=== PATIENT | female | born 1950 | race Hispanic/Latino ===

== ENCOUNTER 2016-07-20 00:26 | Inpatient (IN) | payer MEDICARE, OTHER ==
[~2016-07-20] VITALS: Ht 157.5 cm; Wt 79.1 kg
[2016-07-20] VITALS (36 sets, daily range): BP systolic 32–120; BP diastolic 37–95; PULSE 90–112; RESP 18–34; O2SAT 91–97
[~2016-07-20 00:26] MED LIST: ALBU8.5H2 INHALATION; DORZ10DR20 LEFT_EYE; ESOM40CA41 PO; LEVO88TA3 PO; OMEP20CA11 PO
--- NOTE | 2016-07-20 00:49 | ED.REPORT ---
HPI-Dyspnea / Wheezing Date of Service Jul 20, 2016 ED Provider: Dr. Perez Pt is a 66 y/o female presenting to the ED via EMS with family due to nausea and vomiting onset today. She felt generally unwell yesterday without definitive symptoms and today has experienced nausea and vomiting x5 times today. She c/o associated right sided abdominal pain with radiation to the right flank, fever onset last night, myalgias, generalized weakness. She states that while she was picking up something yesterday she felt a tearing sensation in her back. She denies dysuria, hematuria, bloody or melena stool, constipation , diarrhea, CP, SOB. She has a history of kidney stones and her symptoms today are similar to those episodes. Abdominal surgeries: cholecystectomy, hysterectomy Nursing Notes Stated Complaint: FLU SYMPTOMS Chief Complaint: General Complaint Nursing Notes Reviewed: Yes Allergies: Coded Allergies: No Known Allergies (Verified , 06/05/15) Scheduled Dorzolamide HCl/Timolol Maleat (Dorzolamide-Timolol Eye Drops) 10 Ml Drops 2 GTT LEFT_EYE BID Esomeprazole Magnesium (Nexium) 40 Mg Capsule.dr 40 MG PO DAILY Levothyroxine (Synthroid) 88 Mcg Tablet 88 MCG PO DAILY Scheduled PRN Albuterol HFA (Proair HFA) 8.5 Gm Hfa.aer.ad 1 PUFF INHALATION Q4H PRN PRN For Shortness of Breath Omeprazole (Omeprazole) 20 Mg Capsule.dr 20 MG PO DAILY PRN PRN For Dyspepsia or Heartburn General Time Seen by MD: 00:45 Chief Complaint Other (Vomiting) Hx Obtained From: Patient Arrived By: Walk-in Sudden in Onset?: Yes Onset Occurred: 5 - 8 hours ago Symptom Duration: Since onset Quality: Painful (right abd) Severity: Current: Mild Severity: Maximum: Mild Recent Healthcare: Previous diagnosis Similar Sx Previous: Yes Past Medical History Past Medical History Hx kidney stones Gastritis GERD Hypothyroid Hypotension Past Surgical History Hysterectomy Cholecystectomy Family History Noncontributory Smoking History Never Smoker Social History Alcohol Use: Denies alcohol use Other Social History: Local resident Ambulatory Status Independent Review of Systems Constitutional: Reports: Chills, Fever, Weakness - generalized Respiratory: Denies: Shortness of breath Cardiovascular: Denies: Chest pain Musculoskeletal: Reports: Back pain Complete sys rev & neg: except as marked. GI: Reports: Abdominal pain, Nausea, Vomiting, Denies: Bloody/tarry stool, Constipation, Diarrhea, Melena Physical Exam Initial Vital Signs Vital Signs (First) Date Time Temp Pulse Resp B/P Pulse Ox O2 Delivery O2 Flow Rate FiO2 07/20/16 00:36 39.4 108 20 82/55 93 Room Air Initial VS: Reviewed, Vital signs abnormal Head / Eyes: Atraumatic, Normocephalic, PERRL Extremities: Vascular intact, Neuro intact, No swelling, No tenderness Skin: Warm, Dry, No cyanosis Neurologic: Alert, Oriented, Nonfocal Psychiatric: Mood/affect normal, Behavior normal, Normal thought content General/Constitutional: Awake, Alert, No acute distress, Cooperative, Not toxic appearing Distress / Hydration: Positive: Dehydration mild Neck: Atraumatic, Supple, Full range of motion Respiratory / Chest: Atraumatic, No respiratory distress, No retractions, No chest wall deformity Coarse breath sounds throughout Cardiovascular: Regular rhythm, Heart sounds NL, No gallop, No murmurs, No rubs , Cap refill not delayed, Peripheral circulation NL Heart Rate / Rhythm: Positive: Tachycardia ENT: Atraumatic, Airway patent Mouth: Positive: Mucous membranes dry Abdomen: Atraumatic, Soft, No rebound, No distention, No palpable mass Positive Rovisng's sign No RLQ tenderness to palpation Mild guarding Interpretation & Diagnostics Interpretation & Diagnostics: CT KUB w/out contrast: Conclusion: Right hydronephrosis and proximal hydroureter secondary to a proximal nonobstructing 3 mm stone and a second distal right ureteral stone measuring 2 mm at the UVJ. Transmitted to the ED by Liborio Kapoor MD at 0149 Lab Results Interpretation Result Diagram: 07/20/16 0125 07/20/16 0125 Test 07/20/16 00:59 07/20/16 01:25 Urine Color Bloody (YELLOW) Urine Appearance Cloudy (CLEAR,HAZY) Urine pH 6.0 (5.0-8.0) Urine Specific [place] 1.015 (1.003-1.035) Urine Protein 100mg/dL (NEG,TRACE) Urine Glucose (UA) Negativemg/dL (NEGATIVE) Urine Ketones Negativemg/dL (NEGATIVE) Urine Occult Blood Large (NEGATIVE) Urine Nitrite Negative (NEGATIVE) Urine Bilirubin Negative (NEGATIVE) Urine Urobilinogen Normalmg/dL (NORMAL) Urine Leukocyte Esterase Moderate (NEGATIVE) Urine RBC >50/hpf (0-2) Urine WBC 6-10/hpf (0-5) Urine Epithelial Cells Many/hpf (NONE-MOD) Urine Crystals None seen (NONE SEEN) Urine Bacteria Many/hpf (NONE-FEW) Urine Hyaline Casts None/lpf (NONE) Urine Granular Casts None seen (NONE SEEN) Urine Waxy Casts None seen (NONE SEEN) Urine Red Blood Cell Casts None seen (NONE SEEN) Urine White Blood Cell Casts None seen (NONE SEEN) Urine Mucus None seen (None Seen) Urine Trichomonas None seen (NONE SEEN) Urine Yeast None (NONE SEEN) Urinalysis Comment None Urine Culture Reflexed Indicated White Blood Count 6.5th/mm3 (3.8-10.1) Red Blood Count 4.63mil/mm3 (3.90-5.20) Hemoglobin 14.0g/dL (12.0-15.6) Hematocrit 41.4% (35.0-46.0) Mean Corpuscular Volume 89.4fL (81-100) Mean Corpuscular Hemoglobin 30.2pg (27.0-35.0) Mean Corpuscular Hemoglobin Concent 33.8% (32.0-37.0) Red Cell Distribution Width 14.0% (12.3-15.4) Platelet Count 134bil/L (150-400) Neutrophils (%) (Auto) 91.1% (40-74) Lymphocytes (%) (Auto) 5.3% (14-46) Monocytes (%) (Auto) 1.2% (4-12) Eosinophils (%) (Auto) 0.5% (0-5) Basophils (%) (Auto) 0.2% (0-3) Sodium Level 144mEq/L (134-144) Potassium Level 3.3mEq/L (3.5-5.2) Chloride Level 106mEq/L (97-108) Carbon Dioxide Level 17mmol/L (18-29) Blood Urea Nitrogen 24mg/dL (8-27) Creatinine 1.16mg/dL (0.57-1.00) Estimat Glomerular Filtration Rate 67mL/min (>59) Glucose Level 111mg/dL (60-99) Lactic Acid Level 7.5mmol/L (0.4-2.0) Calcium Level 9.5mg/dL (8.5-10.1) Magnesium Level 1.7mg/dL (1.6-2.6) Total Bilirubin 1.1mg/dL (0.0-1.2) Aspartate Amino Transf (AST/SGOT) 147U/L (0-50) Alanine Aminotransferase (ALT/SGPT) 101U/L (0-32) Alkaline Phosphatase 145U/L (25-165) Troponin T 0.010ug/L (0.0-0.011) Total Protein 6.4g/dL (6.4-8.4) Albumin 3.6g/dL (3.4-5.0) Lipase 27U/L (13-60) X-Ray Chest Interpretation Chest Xray Interpretation: Mild pulmonary congestion View: Portable, AP & lat Interpretation / Wet Read by: Wet read ED physician Procedures Central Line Placement Central Line Placement Note: Secured at 15 cm Time: 03:15 Procedure Performed by: ED physician Consent / Setup / Site Prep: Informed consent provided, Consent from patient , Time-out performed, Needle aspirate performed, Oxygen administered, Pulse oximeter applied, threat monitoring analyst applied, Hand hygiene observed, Standard surgical scrub, Max barrier precaution, Sterile drapes applied, Position Trendelenburg Skin Preparation Agent: Hibiclens - Chlorhexidine Local Anesthesia: Lidocaine 1% Side / Location / Ultrasound: Internal jugular right, Ultrasound assisted Catheter / Lumen / Technique: Catheter size (7.5 greenlandic), Triple lumen, Good blood return, Secured with suture Central Line Tip Location: Other (on x-ray, central line is high and somewhat tortuous, however, it draws back appropriately and appears to be in the IJ. At this time, I do not feel it is appropriate to pull the central line and replace it.) Post-Procedure / Complications: Condition improved, Tolerated procedure well , Patient stable Re-Eval/Medical Decision Med Decision/Clinical Course 66-year-old female with past medical history of kidney stones here with flank pain and fever. Differential diagnosis includes but is not limited to infected kidney stone versus pyelonephritis versus influenza versus pneumonia. Patient' s blood pressure dropped while in the emergency department, at which point, I placed a central line. Heart she has a lactic acidosis of 7.5. And very concerned that this is due to an infected kidney stone. She does not have a leukocytosis, however, she does have acute kidney injury with doubling of her creatinine. She does have a urinary tract infection and 2 nonobstructing stones with mild hydronephrosis. I discussed the case with the urologist Dr. Martinez who will see the patient at 7:00 in the morning and has requested she remain nothing by mouth from this point on. Patient has been accepted by hospitalist . Re-Evaluation/Progress #1: Time of Eval: 02:07 Re-Evaluation/Progress Note: Informed pt of kidney stone viewed on CT. Still awaiting CMP and UA results. Re-Evaluation/Progress #2: Time of Eval: 02:32 Re-Evaluation/Progress Note: Pt rechecked. Informed famly of severely infected kidney stone and need for transfer due to no beds available at [facility]. Re-Evaluation/Progress #3: Time of Eval: 03:06 Patient Status: Condition worsened Re-Evaluation/Progress Note: Heart rate increasing, blood pressure decreasing. Still no beds available at any Will place central line. Consultation #1: Referral / Consult Name: Martine Martinez MD Consulted With: Urology Call Returned at: 03:40 Mortgage Sales Manager: Will see patient, Agrees with eval, Agrees with plan Consultation #2: Referral / Consult Name: Noni Urbina MD Consulted With: Hospitalist Call Returned at: 04:00 Mortgage Sales Manager: Will see patient, Agrees with eval, Agrees with plan, Accepts admit Counseled Regarding: Diagnosis, Lab results, Need for transfer Discharge & Departure Impression: Primary Impression: Sepsis Sepsis type: sepsis due to unspecified organism Qualified Code: A41.9 - Sepsis, unspecified organism Additional Impressions: Right ureteral stone Hydronephrosis of right kidney Disposition: Transfer, Acute Care Facility Discharge Condition All VS Reviewed: Yes Condition: Stable Patient Instructions: Renal Colic (ED) Referrals: Julio Hutchinson MD (PCP) Crit Care Except Billable Proc Time Spent: 105-134 minutes Services Performed: Patient management by me, Time spent at bedside, Reviewing test results, Reviewing imaging, Discussing patient care, Documentation in record, Time with fam/surrogate Scribe Attestation Portions of this note were transcribed by Dago Fink. I, Dr. Perez personally performed the history, physical exam and medical decision-making; I reviewed and confirmed the accuracy of the information in the transcribed note. Signed by Annette Chacon, 07/19/16 - 0050 copies to: Julio Hutchinson MD, Rebecca A MD Jul 20, 2016 00:49 DAGO FINK Jul 20, 2016 01:05
[2016-07-20] MEDS ORDERED: 0.9% Sodium Chloride 1,000 ML IV ONE ×3 (00:59→13:50)
[2016-07-20] MEDS ORDERED: fentaNYL-PF 50 mCg/mL 2 mL Inj IVPUSH ONE (01:05)
[2016-07-20] MEDS ORDERED: Ondansetron 2 mg/mL 2 mL Inj IVPUSH ONE ×2 (01:05→02:25)
[2016-07-20 01:42] LABS: BASOPHILS % (AUTO) 0.2 % (0-3); EOSINOPHILS % (AUTO) 0.5 % (0-5); MONOCYTES % (AUTO) 1.2 % (4-12); Mean Corpuscular Hemoglobin 30.2 pg (27.0-35.0); Mean Corpuscular Volume 89.4 fL (81-100); NEUTROPHILS % (AUTO) 91.1 % (40-74); Platelet Count 134 bil/L (150-400)
[2016-07-20 02:23] LABS: Magnesium 1.7 mg/dL (1.6-2.6); TROPONIN T 0.01 ug/L (0.0-0.011)
[2016-07-20] MEDS ORDERED: cefTRIAXone Inj 1,000 MG in IV Premix 1 EACH IV ONE ×2 (02:25→04:00)
[2016-07-20 02:40] LABS: APPEARANCE,URINE CLOUDY (CLEAR,HAZY); COLOR,URINE BLOODY (YELLOW); OCCULT BLOOD,URINE LARGE (NEGATIVE); UROBILINOGEN,URINE NORMAL (NORMAL)
[2016-07-20] MEDS: Norepinephrine 8,000 mCg/250 mL D5W Premix IV SCH ×2 (03:47→11:05)
[2016-07-20] MEDS ORDERED: 0.9% Sodium Chloride 1,000 ML IV SCH (04:31)
[2016-07-20] MEDS ORDERED: Polyethylene Glycol (PEG) 17 Gm Powder PO PRN ×3 (04:35→09:00)
[2016-07-20] MEDS ORDERED: Alum-Mag Hydrox-Simeth 30 mL Suspension PO PRN ×2 (04:35→08:50)
--- NOTE | 2016-07-20 04:54 | PCM.HPMED ---
Subjective Date of Service Jul 20, 2016 Primary Provider: Admitting Physician: Primary Care Physician: Julio Hutchinson MD Attending Physician: Admit Status: From the Emergency Department, Full Admit Chief Complaint: Right-sided abdominal pain with nausea vomiting History of Present Illness: This is a 66-year-old female who comes in accompanied by family with few week history of right sided abdominal pain. She has had nausea vomiting which started today. She is also had some fevers and chills today. Her bowel movements have been normal. She does have a history of kidney stones one year ago and was treated by the urologist Dr. Colby. Her evaluation today in the emergency room reveals CT of abdomen and pelvis without contrast shows right hydronephrosis and proximal hydroureter secondary to a proximal nonobstructing 3 mm stone and a second distal right ureteral stone measuring 2 mm at the UVJ her temperature here is noted to be 39.4. Her white count is 6.5 with 91% polys and 5% lymphs. Her UA shows large occult blood negative nitrite and moderate leukocyte esterase RBCs greater than 50 wbc's 6-10 many epithelial cells with many bacteria. Her BUN is 24 with creatinine of 1.16 approximately a year ago she had a creatinine of 0.5. Calculated GFR is 67. Lactic acid is 7.5. Troponin is 0.010. Bicarbonate is 17. She denies any chest pain or shortness of breath. She denies any urinary frequency or burning. Review of Systems: All other review of systems are reviewed and are negative except for as in history of present illness. Allergies Coded Allergies: No Known Allergies (Verified , 06/05/15) Home Medications Nexium 40 mg by mouth daily Levothyroxine 88 g by mouth daily dorzolamide/timolol eyedrops 2 drops left eye twice a day Albuterol HFA 1 puff inhaled every 4 hours when necessary shortness of breath Omeprazole 20 mg by mouth daily when necessary heartburn PMH GERD Obesity Hypothyroidism History of gastritis History of kidney stones Surgical History Status post hysterectomy Status post cholecystectomy Family History No history of cardiovascular disease or kidney disease Social History Hx Alcohol Use: No Hx Substance Use: No Hx Tobacco Use: No Smoking Status: Never Smoker Living Arrangement: with Family Exam Vital Signs Vital Sign - Last Date Time Temp Pulse Resp B/P Pulse Ox O2 Delivery O2 Flow Rate FiO2 07/20/16 04:37 103 102/61 07/20/16 03:45 33 95 Nasal Cannula 07/20/16 00:49 39.7 Intake and Output 07/19/16 07/19/16 07/20/16 Cumulative From/Thru 15:00 23:00 07:00 07/20/16 00:36 - 07/20/16 01:24 Intake Total 1000 ml 1000 ml Balance 1000 ml 1000 ml Intake IV Total 1000 ml 1000 ml Lab and Diagnostics Labs Laboratory Tests 72 Hours Test 07/20/16 00:59 07/20/16 01:25 Urine Color Bloody (YELLOW) Urine Appearance Cloudy (CLEAR,HAZY) Urine pH 6.0 (5.0-8.0) Urine Specific [place] 1.015 (1.003-1.035) Urine Protein 100mg/dL (NEG,TRACE) Urine Glucose (UA) Negativemg/dL (NEGATIVE) Urine Ketones Negativemg/dL (NEGATIVE) Urine Occult Blood Large (NEGATIVE) Urine Nitrite Negative (NEGATIVE) Urine Bilirubin Negative (NEGATIVE) Urine Urobilinogen Normalmg/dL (NORMAL) Urine Leukocyte Esterase Moderate (NEGATIVE) Urine RBC >50/hpf (0-2) Urine WBC 6-10/hpf (0-5) Urine Epithelial Cells Many/hpf (NONE-MOD) Urine Crystals None seen (NONE SEEN) Urine Bacteria Many/hpf (NONE-FEW) Urine Hyaline Casts None/lpf (NONE) Urine Granular Casts None seen (NONE SEEN) Urine Waxy Casts None seen (NONE SEEN) Urine Red Blood Cell Casts None seen (NONE SEEN) Urine White Blood Cell Casts None seen (NONE SEEN) Urine Mucus None seen (None Seen) Urine Trichomonas None seen (NONE SEEN) Urine Yeast None (NONE SEEN) Urinalysis Comment None Urine Culture Reflexed Indicated White Blood Count 6.5th/mm3 (3.8-10.1) Red Blood Count 4.63mil/mm3 (3.90-5.20) Hemoglobin 14.0g/dL (12.0-15.6) Hematocrit 41.4% (35.0-46.0) Mean Corpuscular Volume 89.4fL (81-100) Mean Corpuscular Hemoglobin 30.2pg (27.0-35.0) Mean Corpuscular Hemoglobin Concent 33.8% (32.0-37.0) Red Cell Distribution Width 14.0% (12.3-15.4) Platelet Count 134bil/L (150-400) Neutrophils (%) (Auto) 91.1% (40-74) Lymphocytes (%) (Auto) 5.3% (14-46) Monocytes (%) (Auto) 1.2% (4-12) Eosinophils (%) (Auto) 0.5% (0-5) Basophils (%) (Auto) 0.2% (0-3) Sodium Level 144mEq/L (134-144) Potassium Level 3.3mEq/L (3.5-5.2) Chloride Level 106mEq/L (97-108) Carbon Dioxide Level 17mmol/L (18-29) Blood Urea Nitrogen 24mg/dL (8-27) Creatinine 1.16mg/dL (0.57-1.00) Estimat Glomerular Filtration Rate 67mL/min (>59) Glucose Level 111mg/dL (60-99) Lactic Acid Level 7.5mmol/L (0.4-2.0) Calcium Level 9.5mg/dL (8.5-10.1) Magnesium Level 1.7mg/dL (1.6-2.6) Total Bilirubin 1.1mg/dL (0.0-1.2) Aspartate Amino Transf (AST/SGOT) 147U/L (0-50) Alanine Aminotransferase (ALT/SGPT) 101U/L (0-32) Alkaline Phosphatase 145U/L (25-165) Troponin T 0.010ug/L (0.0-0.011) Total Protein 6.4g/dL (6.4-8.4) Albumin 3.6g/dL (3.4-5.0) Lipase 27U/L (13-60) Result Diagram: 07/20/1612407/20/16124 X-Rays, CTs and MRIs Chest Xray Interpretation: Mild pulmonary congestion View: Portable, AP & lat Interpretation / Wet Read by: Wet read ED physician 12-lead ECG Pending at the time of this dictation Assessment & Plan # Sepsis thought to be due to infected ureteral stone, present on admission, acute We will cover with 2 g IV Rocephin every 24 hours. Blood cultures 2 We will initiate sepsis protocol with recurrent lactic acid levels every 2 hours until improving. Her level was high at 7.5. Check venous blood gas. Await urine culture report # Septic shock, present on admission, acute Central line was placed in the emergency room and will initiate IV norepinephrine to maintain map of 65 or greater. # Right ureteral stone nonobstructing, present on admission Urology has been notified per ER M.D. We will see patient in a.m. # DVT prophylaxis Since patient may go to the OR soon will not use subcutaneous anticoagulation SCDs # CODE STATUS Patient is full code. Pain Evaluation: Adequate Pain Control GI Prophylaxis: Proton Pump Inhibitor VTE Prophylaxis Indicated: CCU Admission, Contraindicated (May be taken to the OR soon) VTE Mechanical Devices: Intermittant Pneumatic CD Resuscitation Status: CPR: Attempt Resuscitation Time spent 60 minutes Noni Urbina MD Jul 20, 2016 04:54
[2016-07-20 05:01] LABS: INR 1.2 ratio
[2016-07-20 05:49] LABS: Mean Corpuscular Hemoglobin 29.8 pg (27.0-35.0); Mean Corpuscular Volume 90.8 fL (81-100); Platelet Count 129 bil/L (150-400)
[2016-07-20 06:11] LABS: TROPONIN T 0.01 ug/L (0.0-0.011)
[2016-07-20 06:14] LABS: BASOPHILS % (AUTO) 0 % (0-3); EOSINOPHILS % (AUTO) 0 % (0-5); MONOCYTES % (AUTO) 1 % (4-12); NEUTROPHILS % (AUTO) 90 % (40-74)
[2016-07-20 06:22] LABS: Magnesium 1.6 mg/dL (1.6-2.6)
[2016-07-20] MEDS: Norepineph 8,000 mCg/250 mL NS 8,000 MCG in IV Premix 1 EACH IV SCH ×2 (06:24→19:43)
[2016-07-20] MEDS: 0.9% Sodium Chloride 1,000 ML IV SCH ×4 (06:26→23:25)
[2016-07-20 06:42] LABS: Phosphorus 0.8 mg/dL (2.5-4.9)
--- NOTE | 2016-07-20 07:07 | NUR ---
CCU admit Received patient from ED @ 0620 with Rt hydronephrosis, sepsis, arrived with acls transport, levophed gtt @ 0.25 mcg/kg/min, started NS @ 125 cc/hr, NC @ 3LPM, sp02 >92%, pt dyspneic on exertion, HR 102-104, map>65, barber draining with adequate uo, unable to do complete admission. Daughter at bedside, updated with plan of care. Notified Dr. Urbina of K+3.3, Phos 0.8, to replace with Kphos per pharmacy.
--- NOTE | 2016-07-20 08:15 | PCM.HPANE ---
Patient Data Date of Service: Jul 20, 2016 Surgeon Admitting Provider:Noni Urbina MD Attending Provider:Noni Urbina MD Primary Care Physician:Julio Hutchinson MD Other Provider: Reason for Visit Hydronephrosis R Ureteral Stone Sepsis Ht/WT & BMI Height (Feet): 5 Height (Inches): 2.00 Weight (Kilograms): 83.400 Body Mass Index 33.84 Allergies Coded Allergies: No Known Allergies (Verified , 06/05/15) Past Anesthesia History Anesthesia History: Positive for:: Anesthesia Reactions (PT WAS HOSPITALIZED X 1 WK, LUNG COLLAPSE), Denies:: Abnormal Airway, Difficult Intubation, Fam Anesthesia Reaction, Fam Malignant Hypertherm, Malignant Hyperthermia Diabetes History Hx Diabetes?: No MRSA MRSA: No Medications Home Meds Incl Beta Liseth: No Reported Medications Albuterol HFA (Proair HFA)8.5 Gm Hfa.aer.ad1 Puff INHALATION Q4H PRN For Shortness of Breath #1 INHALER 06/05/15 Omeprazole 20 Mg Capsule.dr20 Mg PO DAILY PRN For Dyspepsia or Heartburn Ref 0 06/05/15 Dorzolamide HCl/Timolol Maleat (Dorzolamide-Timolol Eye Drops)10 Ml Drops2 Gtt LEFT_EYE BID #1 BOTTLE 12/22/14 Esomeprazole Magnesium (Nexium)40 Mg Capsule.dr40 Mg PO DAILY 30 Days Ref 0 12/22/14 Levothyroxine (Synthroid)88 Mcg [id number] Mcg PO DAILY 30 Days Ref 0 12/22/14 History History of ENT Problems?: Yes HEENT History: Positive for:: Dysphagia (OCCASIONAL ) Denies:: Abnormal Airway Cataracts Difficult Intubation Glaucoma Sinus Problem Hx of Heart Problems?: Yes Cardiovascular History: Positive for:: Edema (occasional) Irregular Heartbeat (C/OF PALPITATIONS) Denies:: AICD Atrial Fibrillation Cardiac Surgery Chest Pain Congestive Heart Failure Heart Murmur Hypertension Pacemaker Thrombophlebitis Valvular Heart Disease Hx of Respiratory Problem?: Yes Respiratory History: Positive for:: Asthma (VERY RARE FLARE UPS ) Dyspnea (this admission 07/19/16) Use of C-PAP Machine (WOOD+ REFUSES CPAP SLEEP STUDY 11/2008) Denies:: COPD Chest Surgery Cough Emphysema Hemoptysis Pneumonia Tuberculosis Hx Neurologic Problems?: Yes Neurological History: Denies:: Alzheimer's Disease CVA Dementia Dizziness Headaches Parkinson's Disease Seizures Hx of GI Problems?: Yes Gastrointestinal History: Positive for:: Diverticulitis Gastroesphageal Reflux Heartburn Hiatal Hernia Denies:: Cirrhosis Gastrointestinal Bleeding Hepatitis Rectal Bleeding Hx of Problems?: Yes Genitourinary History: Positive for:: Kidney Stones (RT URETERAL STONE= CURRENT PROBLEM S/P CYSTO/RT STENT PLACEMENT) Urinary Tract Infection Denies:: HX of Hemodialysis HX of Peritoneal Dialysis: No Female Hx: Denies:: Currently Endometriosis Pelvic Inflammatory Problems with Breasts? Skin History: Denies:: History Skin Disorders? Pressure Ulcers Hx Musculoskeletal Problems?: Yes Musculoskeletal History: Positive for:: Musculoskeletal Trauma (S/P SHOULDER RPR'S,WRIST RPR) Denies:: Back Injury Joint Replacement Hx of Psycho/Social Problems?: Yes Psycho Social History: Positive for:: Anxiety Hx Depression Denies:: Bipolar Disorder Suicide Attempt Hx Surgeries?: Yes (ROTATOR CUFF REPAIR ) Hx Any Other Health Problems?: Yes Other History: Positive for:: Hospitalization (RT KIDNEY STONE 04/07/13) Thyroid Disease Denies:: Cancer Endocrine Disease History Blood Transfusions: Denies:: Blood Transfuse Reaction Blood Transfusions Hx Diabetes: No Hx Alcohol Use: NoHx Substance Use: No Smoking Status: Never Smoker Have You Smoked inLast 12 mo: No Stop/Bang Treated for Sleep Apnea?: Yes Do You Have a CPAP Machine?: Yes WOOD Risk Assessment: High Risk, =/>3 Yes WOOD Category 2: Yes Risk Assessment Category Category 1A: Patient has history of documented sleep apnea, and HAS NOT received any narcotic, sedative or anesthesia administration during this stay. Category 1B: Patient has history of documented sleep apnea, and HAS received any narcotic , sedative or anesthesia administration during this stay Category 2: Patient has SUSPECTED Obstructive Sleep Apnea, and HAS received any narcotic , sedative or anesthesia administration during this stay. Category 3: Patient has SUSPECTED Obstructive Sleep Apnea and HAS NOT received narcotic, sedative or anesthesia administration during this stay. Category 4: Outpatient in Procedural Areas with known sleep apnea or who screen positive for High Risk via the STOP/BANG questionnaire. Exam Exam Vital Signs Vital Signs Date Time Temp Pulse Resp B/P Pulse Ox O2 Delivery O2 Flow Rate FiO2 07/20/16 07:28 Supplement Oxygen 07/20/16 07:27 37.4 102 30 106/62 94 Nasal Cannula 3.00 07/20/16 06:30 37.2 102 30 95/59 93 Nasal Cannula 3.00 07/20/16 06:01 37.7 102 34 84/51 94 Nasal Cannula 4 07/20/16 05:48 102 34 84/51 94 Nasal Cannula 4 07/20/16 05:30 37.7 105 30 105/95 95 Nasal Cannula 4 07/20/16 05:00 104 31 97/58 94 Nasal Cannula 4 07/20/16 04:37 103 102/61 07/20/16 04:29 107 32/64 07/20/16 04:20 101 91/54 07/20/16 04:10 105 88/57 07/20/16 04:00 107 89/59 07/20/16 03:55 109 89/57 07/20/16 03:50 112 84/55 07/20/16 03:45 111 33 83/58 95 Nasal Cannula 07/20/16 03:30 110 86/54 07/20/16 03:04 110 22 80/37 97 Room Air 07/20/16 02:00 110 22 92/52 97 Room Air 07/20/16 00:49 39.7 109 19 90/59 92 Room Air 07/20/16 00:36 39.4 108 20 82/55 93 Room Air General Appearance: Alert, Oriented X3, Cooperative, No Acute Distress HEENT/AIRWAY: MP 2 Lungs: Normal Air Movement Heart: Exam Unremarkable Meds/Labs/Diagnostics Admission Meds Current Medications Sodium Chloride (Normal Saline) 1,000 ml @ 0 mls/hr Q0M ONCE IV Last administered on 07/20/16at 01:22; Start 07/20/16 at 00:59; Stop 07/20/16 at 01 :02; Status DC Fentanyl Citrate (Sublimaze Inj) 50 mcg ONCE ONCE IVPUSH Last administered on 07/20/16at 01:22; Start 07/20/16 at 01:05; Stop 07/20/16 at 01:06; Status DC Ondansetron HCl (Zofran Inj) 8 mg ONCE ONCE IVPUSH Last administered on at 01:22; Start 07/20/16 at 01:05; Stop 07/20/16 at 01:06; Status DC Acetaminophen 975 mg 975 mg ONCE ONCE PO Last administered on 07/20/16at 02:23 ; Start 07/20/16 at 02:10; Stop 07/20/16 at 02:11; Status DC Sodium Chloride 1,000 ml @ 0 mls/hr Q0M ONCE IV Last administered on at 02:23; Start 07/20/16 at 02:20; Stop 07/20/16 at 02:21; Status DC Ceftriaxone Sodium/Dextrose/ Premix (Rocephin Inj/IV Premix) 50 ml @ 100 mls/ hr ONCE ONCE IV Last administered on 07/20/16at 02:32; Start 07/20/16 at 02: 25; Stop 07/20/16 at 02:54; Status DC Ondansetron HCl 8 mg 8 mg ONCE ONCE IVPUSH Last administered on 07/20/16at 02: 32; Start 07/20/16 at 02:25; Stop 07/20/16 at 02:26; Status DC Sodium Chloride/ Electrolytes 1,000 ml @ 0 mls/hr Q0M IV Last administered on 07/20/16at 04:20; Start 07/20/16 at 04:00 Norepinephrine 8000 mcg/Premix 250 ml @ 7.24 mls/hr Q24H IV Last administered on 07/20/16at 03:47; Start 07/20/16 at 03:25 Ceftriaxone Sodium/Dextrose 1000 mg/Premix 50 ml @ 100 mls/hr ONCE ONCE IV Last administered on 07/20/16at 04:20; Start 07/20/16 at 04:00; Stop 07/20/16 at 04:29; Status DC Sodium Chloride (Normal Saline) 1,000 ml @ 125 mls/hr Q8H IV Last administered on 07/20/16at 06:26; Start 07/20/16 at 04:31 Labs Test 07/20/16 00:59 07/20/16 01:25 07/20/16 05:32 07/20/16 07:20 Urine Color Bloody (YELLOW) Urine Appearance Cloudy (CLEAR,HAZY) Urine pH 6.0 (5.0-8.0) Urine Specific [place] 1.015 (1.003-1.035) Urine Protein 100mg/dL (NEG,TRACE) Urine Glucose (UA) Negativemg/dL (NEGATIVE) Urine Ketones Negativemg/dL (NEGATIVE) Urine Occult Blood Large (NEGATIVE) Urine Nitrite Negative (NEGATIVE) Urine Bilirubin Negative (NEGATIVE) Urine Urobilinogen Normalmg/dL (NORMAL) Urine Leukocyte Esterase Moderate (NEGATIVE) Urine RBC >50/hpf (0-2) Urine WBC 6-10/hpf (0-5) Urine Epithelial Cells Many/hpf (NONE-MOD) Urine Crystals None seen (NONE SEEN) Urine Bacteria Many/hpf (NONE-FEW) Urine Hyaline Casts None/lpf (NONE) Urine Granular Casts None seen (NONE SEEN) Urine Waxy Casts None seen (NONE SEEN) Urine Red Blood Cell Casts None seen (NONE SEEN) Urine White Blood Cell Casts None seen (NONE SEEN) Urine Mucus None seen (None Seen) Urine Trichomonas None seen (NONE SEEN) Urine Yeast None (NONE SEEN) Urinalysis Comment None Urine Culture Reflexed Indicated Prothrombin Time 12.9sec (8.1-12.5) Prothromb Time International Ratio 1.20ratio Lipase 27U/L (13-60) White Blood Count 16.5th/mm3 (3.8-10.1) Red Blood Count 3.93mil/mm3 (3.90-5.20) Hemoglobin 11.7g/dL (12.0-15.6) Hematocrit 35.7% (35.0-46.0) Mean Corpuscular Volume 90.8fL (81-100) Mean Corpuscular Hemoglobin 29.8pg (27.0-35.0) Mean Corpuscular Hemoglobin Concent 32.8% (32.0-37.0) Red Cell Distribution Width 14.2% (12.3-15.4) Platelet Count 129bil/L (150-400) Neutrophils (%) (Auto) 90% (40-74) Lymphocytes (%) (Auto) 3% (14-46) Monocytes (%) (Auto) 1% (4-12) Eosinophils (%) (Auto) 0% (0-5) Basophils (%) (Auto) 0% (0-3) Band Neutrophils % 6% (1-5) Sodium Level 144mEq/L (134-144) Potassium Level 3.3mEq/L (3.5-5.2) Chloride Level 113mEq/L (97-108) Carbon Dioxide Level 17mmol/L (18-29) Blood Urea Nitrogen 21mg/dL (8-27) Creatinine 0.92mg/dL (0.57-1.00) Estimat Glomerular Filtration Rate 87mL/min (>59) Glucose Level 122mg/dL (60-99) Calcium Level 7.5mg/dL (8.5-10.1) Phosphorus Level 0.8mg/dL (2.5-4.9) Magnesium Level 1.6mg/dL (1.6-2.6) Total Bilirubin 1.6mg/dL (0.0-1.2) Aspartate Amino Transf (AST/SGOT) 170U/L (0-50) Alanine Aminotransferase (ALT/SGPT) 104U/L (0-32) Alkaline Phosphatase 96U/L (25-165) Troponin T 0.010ug/L (0.0-0.011) Total Protein 4.9g/dL (6.4-8.4) Albumin 2.7g/dL (3.4-5.0) Activated Partial Thromboplast Time 35.9sec (22.8-33.0) Plan Impression Patient chart reviewed, patient interviewed and anesthestic plan with risks, benefits, and alternatives discussed, and informed consent obtained. NPO Status: 04/11 at 1630 ASA Physical Status: ASA3 Severe Disease (sepsis) Anesthetic Plan: GA Bene/Risks/Altern/Consents: Yes HP Complete Prior to Induction: Yes Vamsi Arnold MD Jul 20, 2016 08:02
--- NOTE | 2016-07-20 08:18 | NUR ---
Off unit: Pt off unit to OR for cystoscopy and urethral stent. Family aware.
[2016-07-20] MEDS ORDERED: Lactated Ringer's 1,000 ML IV ONE ×2 (08:20→08:46)
[2016-07-20] MEDS: Sodium Chloride LOK Flush 10 mL Syringe IVFLUSH SCH ×3 (08:30→19:43)
[2016-07-20] MEDS ORDERED: Famotidine Inj 20 MG in IV Premix 1 EACH IV SCH (08:30)
[2016-07-20] MEDS: Timolol-Dorzolamide 10 mL Ophthalmic Solution LEFT_EYE SCH ×2 (08:30→19:43)
[2016-07-20] MEDS: Pantoprazole 4 mg/mL 10 mL Inj IVPUSH SCH ×2 (08:30→16:55)
[2016-07-20] MEDS ORDERED: Belladonna Alk-Opium 60 mg Rectal Suppository RECTAL ONE ×2 (08:37→08:44)
[2016-07-20] MEDS ORDERED: Lactated Ringer's 1,000 ML IV SCH (08:46)
[2016-07-20] MEDS ORDERED: Lactated Ringer's 500 ML IV PRN (08:46)
[2016-07-20] MEDS ORDERED: EPHEDrine Sulfate 50 mg/mL Inj IVPUSH PRN (08:50)
[2016-07-20] MEDS ORDERED: Atropine 0.4 mg/mL Inj IVPUSH PRN (08:50)
[2016-07-20] MEDS ORDERED: hydrALAZINE 20 mg/mL Inj IVPUSH PRN (08:50)
[2016-07-20] MEDS ORDERED: Albuterol-Ipratropium 3 mL Inhalation Solution NEB PRN (08:50)
[2016-07-20] MEDS ORDERED: Labetalol 5 mg/mL 4 mL Inj IV PRN (08:50)
[2016-07-20] MEDS ORDERED: Dexamethasone 4 mg/mL Inj IVPUSH PRN (08:50)
[2016-07-20] MEDS ORDERED: MetoCLOpramide 5 mg/mL 2 mL Inj IVPUSH PRN (08:50)
[2016-07-20] MEDS ORDERED: fentaNYL-PF 50 mCg/mL 2 mL Inj IVPUSH PRN (08:50)
[2016-07-20] MEDS ORDERED: HYDROmorphone 1 mg/mL Inj IVPUSH PRN (08:50)
[2016-07-20] MEDS ORDERED: Senna-Docusate 8.6-50 mg Tablet PO PRN (08:50)
[2016-07-20] MEDS ORDERED: Ondansetron 2 mg/mL 2 mL Inj IVPUSH PRN ×2 (08:50)
--- NOTE | 2016-07-20 09:03 | PCM.ANEP1 ---
Post Anesthesia Phase 1 PACU Phase 1 Assessment Date of Service: Jul 20, 2016 Vital Signs Vital Signs Date Time Temp Pulse Resp B/P Pulse Ox O2 Delivery O2 Flow Rate FiO2 07/20/16 07:28 Supplement Oxygen 07/20/16 07:27 37.4 102 30 106/62 94 Nasal Cannula 3.00 07/20/16 06:30 37.2 102 30 95/59 93 Nasal Cannula 3.00 07/20/16 06:01 37.7 102 34 84/51 94 Nasal Cannula 4 07/20/16 05:48 102 34 84/51 94 Nasal Cannula 4 07/20/16 05:30 37.7 105 30 105/95 95 Nasal Cannula 4 07/20/16 05:00 104 31 97/58 94 Nasal Cannula 4 07/20/16 04:37 103 102/61 07/20/16 04:29 107 32/64 07/20/16 04:20 101 91/54 07/20/16 04:10 105 88/57 07/20/16 04:00 107 89/59 07/20/16 03:55 109 89/57 07/20/16 03:50 112 84/55 07/20/16 03:45 111 33 83/58 95 Nasal Cannula 07/20/16 03:30 110 86/54 07/20/16 03:04 110 22 80/37 97 Room Air 07/20/16 02:00 110 22 92/52 97 Room Air Anesthetic Administered: GA Level of Alertness: Drowsy, not talking Pain: No Pain Scale Score: 0 Oxygen Delivery: Simple Mask Lungs: Normal Air Movement Vamsi Arnold MD Jul 20, 2016 09:03
--- NOTE | 2016-07-20 09:09 | OP ---
[address] [address] OPERATIVE REPORT PATIENT: CARMEN CARLTON : 1950 MR#: [id number] ADMIT: 07/20/2016 JOB ID: [id number] DATE OF SURGERY: 07/20/2016 SURGEON: Martine Martinez MD. PREOPERATIVE DIAGNOSIS(ES): 1. Right ureteral calculus. 2. Right pyelonephritis. POSTOPERATIVE DIAGNOSIS(ES): 1. Right ureteral calculus. 2. Right pyelonephritis. PROCEDURE: 1. Cystoscopy. 2. Right stent placement. ANESTHESIA: General anesthetic. ANESTHESIOLOGIST: Vamsi Arnold MD. DESCRIPTION OF PROCEDURE: Under general anesthetic, patient placed in lithotomy position. Genitalia prepped and draped in a sterile manner. A 22-Romansh cystoscope was introduced through a normal urethra. There was a significant cystocele present. Ureteral orifices were normal in position and appearance. A 6-Romansh, 22 cm double-J stent was advanced to the level of the right renal pelvis. When it was confirmed to be in good position fluoroscopically, the string was cut and removed and the wire withdrawn. The patient tolerated the procedure well and left the operating room in good condition.
[2016-07-20] MEDS: Phenylephrine 10,000 mCg/mL Inj IVPUSH PRN ×2 (09:10→09:23)
--- NOTE | 2016-07-20 09:41 | PCM.ANEP2 ---
Post Anesthesia Evaluation ASA/CMS Post Anesthesia Date of Service: Jul 20, 2016 VS in Patient's Normal Range?: Yes Resp Stable; Airway Patent?: Yes CV Function & Hydration Stable: No (on pressors for sepsis) Mental Status Recovered?: Yes Pain control Satisfactory?: Yes N/V Control Satisfactory?: Yes Vamsi Arnold MD Jul 20, 2016 09:41
--- NOTE | 2016-07-20 09:55 | DRSVH ---
PROCEDURE: CT KUB ([id number]) INDICATIONS: right flank+RLQ pain TECHNIQUE: Noncontrast 5 mm thick sections acquired from the diaphragms to the symphysis. 5 mm thick coronal an d sagittal reformats were then performed. For radiation dose reduction, the following was used: aut omated exposure control, adjustment of mA and/or kV according to patient size. COMPARISON: None. FINDINGS: Image quality: Excellent. Lung bases: Lung bases are clear. Heart size is normal. Urinary system: Both kidneys are normal in size. There is a 5 x 3 mm stone in the proximal right ur eter causing mild right-sided hydronephrosis. 2 mm stone is noted in the right UPJ. Multiple nonobstr ucting stones are noted in the right kidney ranging in size from 3-4 mm. Multiple, nonobstructing sto deepika noted in the left kidney ranging in size from 1-2 mm. Bladder wall thickness is normal; no calcif ied bladder stones. Other solid organs: Liver and spleen are normal in size. Gallbladder is surgically absent. Pancrea s is normal in contours. No adrenal nodules. Peritoneum and bowel: Unenhanced bowel loops demonstrate normal wall thickness and caliber. Scattere d diverticula noted in the colon without evidence of diverticulitis. No free fluid or air. The append ix is normal. Nodes and vessels: No retroperitoneal or mesenteric adenopathy by size criteria. Aorta and inferior vena cava are normal in caliber. Abdominal wall: No ventral hernias. Pelvis: No free pelvic fluid. No inguinal hernias or adenopathy. Bones: No suspicious bony lesions. No vertebral body compression fractures. Spine degenerative disc disease and facet arthropathy are noted. IMPRESSION: 1. 3 x 5 mm proximal right ureteral stone causing mild right-sided hydronephrosis. 2. 2 mm in diameter right UVJ stone. 3. Multiple bilateral nonobstructing renal cortical stones. Dictated by: Martine Teixeira MD, PhD on 07/20/2016 at 9:53 Approved by: Martine Teixeira MD, PhD on 07/20/2016 at 9:53
--- NOTE | 2016-07-20 10:40 | DRSVH ---
PROCEDURE: X-RAY CHEST, TWO VIEWS ([id number]) INDICATIONS: fever, CHEST PAIN LAST WEEK TECHNIQUE: 2 views of the chest were acquired. COMPARISON: CR, CHEST 2VW, 05/13/2009, 10:41. [facility], CR, CHEST 2VW, 0, 11:37. [facility], CR, XR ABD ACUTE SERIES 3VW, 06/05/2015, 19:06. [facility], CR, XR CHEST 1VW (PORTABLE), 07/20/2016, 3:34. [facility], CR, CHEST 2VW, 015, 9:08. FINDINGS: Surgical changes and devices: None. Lungs and pleura: No pleural effusions or pneumothorax. Lungs are clear, aside from mild interstiti al prominence similar to prior examination. Left upper lobe anterior presumed calcified granulomata unchanged. Mediastinum: Mediastinal contours are normal. Heart size is normal. Bones and chest wall: No suspicious bony abnormalities. Soft tissues appear unremarkable. IMPRESSION: Mild interstitial prominence similar to prior examination. Dictated by: Juan Pablo FROST Interpreted: Mynor Burrows MD on 07/20/2016 at 10:38 Approved by: Juan Pablo FROST Interpreted: Mynor Burrows MD on 07/20/2016 at 10:38
--- NOTE | 2016-07-20 11:20 | DRSVH ---
PROCEDURE: X-RAY CHEST ONE VIEW, PORTABLE ([id number]) INDICATIONS: CENTRAL LINE PLACEMENT TECHNIQUE: One view of the chest was acquired. COMPARISON: [facility], , CHEST 1VW (PORTABLE), 08/08/2008, 8:13. FINDINGS: Surgical changes and devices: Right IJ has been placed with tip projected over the origin of the righ t internal jugular vein. Lungs and pleura: No pleural effusions or pneumothorax. Interstitial is prominent similar to prior examination. Mediastinum: Mediastinal contours appear normal. Heart size is normal. Bones and chest wall: No suspicious bony lesions. Overlying soft tissues appear unremarkable. IMPRESSION: 1. Placement right IJ CVL tube tip projected over the right internal jugular vein. 2. Interstitial prominence similar to prior examination. Mild edema or atypical pneumonia cannot be excluded. Correlate clinically. Em Wick given the results at 1130 hrs. 07/20/2016. Dictated by: Juan Pablo FROST Interpreted: Mynor Burrows MD on 07/20/2016 at 11:20 Transcribed by: IVAN on 07/20/2016 at 11:20 Approved by: Mynor Burrows M.D. on 07/20/2016 at 17:03
--- NOTE | 2016-07-20 11:58 | NUR ---
NUTRITION ASSESSMENT: ASSESS: Pt is a 66yo F admitted to CCU for hydronephrosis and R Ureteral Stone. Pt went to OR for cystoscopy and urethral stent this AM. She is currently NPO. PMHX: GERD, hypothyroid, gastritis, kidney stones LABS: Reviewed. K 3.3, Glu 122, Ca 7.5, phos .8, T.bili 1.6, AST 170, ALT 104, alb 2.7 MEDS: Reviewed. Norepinephrine GI: 0 BM SKIN: Rickey 14 CURRENT WTS: 83.4kg, BMI 33.6kg/m2, IBW 50kg DIET: NPO EST. NEEDS: BMI Kcals: 1660-1830kcal/day (20-22kcal/kg) Pro: 60-75g/day (1.2-1.5g/kg IBW) Fluids: 2000-2500ml/day (25-30cc/kg) NUTRITION DIAGNOSIS: 1.) Inadequate oral intake related to decreased ability to consume sufficient energy as evidenced by current NPO status. NUTRITION INTERVENTION: 1.) Recommend advance diet when medically appropriate MONITOR / EVAL: NPO, GI, labs, wt, POC, nutrition status. Will continue to monitor per high nutrition risk guidelines
[2016-07-20] MEDS ORDERED: fentaNYL-PF 50 mCg/mL 2 mL Inj ONE (13:28)
[2016-07-20] MEDS ORDERED: Propofol 10,000 mCg/mL 20 mL Inj ONE (13:54)
[2016-07-20] MEDS ORDERED: Phenylephrine/NS-PF 100 mCg/mL 5 mL Syringe IVPUSH ONE (13:54)
[2016-07-20] MEDS ORDERED: Ondansetron 2 mg/mL 2 mL Inj ONE (13:54)
[2016-07-20] MEDS ORDERED: Dexamethasone 4 mg/mL Inj ONE (13:54)
[2016-07-20] MEDS ORDERED: Potassium Phos (mEq) Inj 40 MEQ in Dextrose 5% 500 ML IV ONE (15:50)
--- NOTE | 2016-07-20 17:05 | DRSVH ---
[facility] [address] [place] [address] Echocardiogram Report Name: CARMEN CARLTON RStudy Date : 07/20/2016 Height: 62 in Hospital Exam Location: [facility] Weight: 184 lb Gender: Female BSA: 1.8 m2 : 1950 Age: 66 yrs BP: 106/62 mmHg Reason For Study: HYPOTENSION Ordering Physician: HOSPITALIST [facility] Performed By: Chin Crow Referring Physician: Dr. Julio Hutchinson Interpretation Summary The left ventricle is normal in size, wall thickness, and systolic function without any focal wall motion abnormalities. The ejection fraction is estimated to be 60-65%. There are no focal wall motion abnormalities. The right ventricle is not well visualized. The right ventricle grossly appears normal in size with probable normal systolic function. Assessment of diastolic parameters indicates a relaxation abnormality of the left ventricle, consistent with normal filling pressures. There is no significant valvular heart disease. No other echocardiographic abnormalities seen. No obvious cause for the patients hypotension noted. Procedure: A two-dimensional transthoracic echocardiogram with color flow and Doppler was performed. The study quality was technically difficult. Comparison is made with the echocardiogram of 03/13/08. A contrast injection of Definity was performed to improve assessment of LV function. The patient was in normal sinus rhythm during the exam. Left Ventricle: The left ventricle is normal in size. There is normal left ventricular wall thickness. The left ventricle is normal in size, wall thickness, and systolic function without any focal wall motion abnormalities. The ejection fraction is estimated to be 60-65%. There are no focal wall motion abnormalities. Assessment of diastolic parameters indicates a relaxation abnormality of the left ventricle, consistent with normal filling pressures. Right Ventricle: The right ventricle is not well visualized. The right ventricle grossly appears normal in size with probable normal systolic function. Atria: Both atria are normal in size. The interatrial septum is intact with no evidence for an atrial septal defect. Mitral Valve: The mitral valve is normal in structure and function. There is trace mitral regurgitation. Aortic Valve: The aortic valve is not well visualized. The aortic valve is grossly normal. There is no aortic valve stenosis. No aortic regurgitation is present. Tricuspid Valve: The tricuspid valve is normal in structure and function. There is mild tricuspid regurgitation. The right ventricular systolic pressure is estimated at 30 mmHg assuming a right atrial pressure of 8 mm Hg. Pulmonic Valve: The pulmonic valve is normal in structure and function. There is trace pulmonic regurgitation. Great Vessels: The aortic root is normal size. The dimensions of the ascending aorta are normal. The pulmonary artery is normal size. The IVC is of normal diameter and collapses less than 50% with a sniff. This suggests a right atrial pressure of 8 mm Hg. Pericardium/ Pleura There is no pericardial effusion. There is no pleural effusion. MMode/2D Measurements & Calculations LVIDd: 4.2 cm LA dimension: 3.2 cm RA long axis Ao root diam: 3.1 cm LVIDs: 3.0 cm Aortic Jxn: 2.6 cm FS: 29.0 % LA A2 area: 17.2 cm RA area asc Aorta Diam EPSS: 0.47 cm LA A4 area: 19.6 cm IVSd: 0.81 cm LA length (vol) : 21.1 cm Ao Arch Diam LVPWd: 0.78 cm RA vol (Proximal trans.) LA vol: 49.5 ml : 63.2 ml LA vol index RA : 34.3 mm2 IVC diam: 2.1 cm LV oliver. diameter/BSALV sys. diameter/BSA (cm/m^2): 2.3 (cm/m^2): 1.6 Doppler Measurements & Calculations Ao V2 max MV E max saqib MV E/A: 0.73 TR max saqib : 149.7 cm/sec : 63.0 cm/sec Med Peak E' Saqib : 235.6 cm/sec Ao max PG MV A max saqib TR max P.2 mmHg : 9.0 mmHg : 85.8 cm/sec E/E' med: 7.9 PA V2 max: 69.9 cm/sec Ao mean PG Pulm A Revs Dur PA mean P.1 mmHg : 6.0 mmHg PA Accel Time: 0.11 sec MV A dur: 0.11 sec MV dec time Ao V2 mean PA V2 mean Pulm A Revs Dur - MV A : 0.17 sec : 119.7 cm/sec : 51.3 cm/sec Dur: 0.00 msec Ao V2 VTI: 29.2 cmPA pr(Accel) : 36.6 mmHg Reading Physician:05:00 PM
[2016-07-20] MEDS: Acetaminophen IV 1,000 MG in IV Premix 1 EACH IV PRN (17:44)
[2016-07-20] MEDS ORDERED: 0.9% Sodium Chloride 250 ML ONE (17:45)
[2016-07-20] MEDS ORDERED: Sodium Chloride LOK Flush 10 mL Syringe IVFLUSH PRN (18:35)
[2016-07-20] MEDS: Albuterol 2.5 mg/3 mL Inhalation Solution NEB PRN ×2 (18:40→23:34)
--- NOTE | 2016-07-20 19:03 | NUR ---
Post Op: Pt off unit for cystoscopy and ureteral stenting, c/o intermittent abd bloating and discomfort, refused offered pain meds. "My pain is okay." Pt has had adequate urine output, 1700mL this shift, urine is dark pearl with small clots/mucous threads. Family has been very concerned about pt's urine and blood pressure. Multiple attempts to explain sepsis and hypotension and urine color r/t infection have been mostly unsuccessful. Attempted to reassure family, offered to call resident, "I don't want a resident, I want a real doctor." Residents and attending notified, stat abd usd ordered. Report to next shift, care ongoing.
--- NOTE | 2016-07-20 19:47 | DRSVH ---
PROCEDURE: US RENAL SONOGRAM INDICATIONS: ABD PAIN TECHNIQUE: Real-time scanning was performed of the kidneys and bladder, with image documentation. COMPARISON: None. FINDINGS: Kidneys: Kidneys are normal in size. Right kidney measures 10.7 cm long; left kidney measures 10.7 cm long. Right renal cortical thickness is 1.5 cm; left renal cortical thickness is 1.4 cm. Renal c ortical echotexture is normal. No hydronephrosis or nephrolithiasis. No suspicious solid mass lesio ns. Bladder: Urinary bladder is empty at the time of the examination secondary to Rodrigues catheter. No ure teral jets are seen. Miscellaneous: No free pelvic fluid. IMPRESSION: No hydronephrosis. Dictated by: Lionel Valenzuela M.D. on 07/20/2016 at 19:46 Approved by: Lionel Valenzuela M.D. on 07/20/2016 at 19:46
--- NOTE | 2016-07-20 20:01 | PCM.PNMED ---
Subjective Date of Service Jul 20, 2016 Subjective Aida Armenta is a 66-year-old female with a past medical history significant for nephrolithiasis, gastritis, obesity, and hypothyroidism who presented to the ED with a week history of right sided abdominal pain, nausea and vomiting. Admitted on 07/20 for sepsis likely secondary to infected ureteral stone. Patient is found shortly after returning to her room from the operating room. She is lethargic but easily aroused. Appears comfortable and communicating appropriately. She endorses abdominal discomfort and bloating. Denies difficulty breathing, nausea, vomiting, fever or chills. Admitted to the CCU overnight with ongoing fluid resuscitation for hypotension secondary to sepsis and started on norepinephrine. Exam Vital Signs Vital Sign - Last Date Time Temp Pulse Resp B/P Pulse Ox O2 Delivery O2 Flow Rate FiO2 07/20/16 09:50 104 20 98/63 92 OxyMask 10 07/20/16 09:40 36.8 Intake and Output 07/19/16 07/19/16 07/20/16 Cumulative From/Thru 15:00 23:00 07:00 07/20/16 00:36 - 07/20/16 06:43 Intake Total 4000 ml 4000 ml Output Total 800 ml 800 ml Balance 3200 ml 3200 ml Intake IV Total 4000 ml 4000 ml Output Urine Total 800 ml 800 ml Exam General: Well-developed, obese female lying in bed, in no acute distress, lethargic but appropriately interactive HEENT: Normocephalic, atraumatic. PERRLA, anicteric sclerae. Moist mucosa. Neck: Supple, nontender. No jugular venous distension. No bruits. No lymphadenopathy or thyromegaly. Cardiovascular: Regular rate and rhythm with no murmurs, rubs, or gallops appreciated Pulmonary: Clear to auscultation bilaterally with no crackles, wheezes, or rhonchi. Normal respiratory effort with no use of accessory muscles. Abdomen: Bowel tones present. Soft, diffusely tender to palpation, nondistended. No hepatosplenomegaly or masses appreciated. Extremities: No clubbing, cyanosis, mild edema upper and lower extremities bilaterally Skin: Normal temperature, turgor, and texture; no rash, ulcers, or subcutaneous nodules appreciated. Neurological: Cranial nerves grossly intact. Normal muscle strength, tone, and bulk. Psychiatric: Alert and oriented, mood and affect appropriate. IVs and Medications Medications Reviewed: Medications were reviewed in detail Lab and Diagnostics Urine Color Bloody, Urine Appearance Cloudy, Urine pH 6.0, Urine Specific Anthony 1.015, Urine Protein 100, Urine Glucose (UA) Negative, Urine Ketones Negative, Urine Occult Blood Large, Urine Nitrite Negative, Urine Bilirubin Negative, Urine Urobilinogen Normal, Urine Leukocyte Esterase Moderate, Urine RBC >50, Urine WBC 6-10, Urine Epithelial Cells Many, Urine Crystals None seen, Urine Bacteria Many, Urine Hyaline Casts None, Urine Granular Casts None seen, Urine Waxy Casts None seen, Urine Red Blood Cell Casts None seen, Urine White Blood Cell Casts None seen, Urine Mucus None seen, Urine Trichomonas None seen, Urine Yeast None Prothrombin Time 12.9, Prothromb Time International Ratio 1.20, Lipase 27, Procalcitonin 66.99 White Blood Count 16.5, Red Blood Count 3.93, Hemoglobin 11.7, Hematocrit 35.7, Mean Corpuscular Volume 90.8, Mean Corpuscular Hemoglobin 29.8, Mean Corpuscular Hemoglobin Concent 32.8, Red Cell Distribution Width 14.2, Platelet Count 129, Neutrophils (%) (Auto) 90, Lymphocytes (%) (Auto) 3, Monocytes (%) ( Auto) 1, Eosinophils (%) (Auto) 0, Basophils (%) (Auto) 0, Band Neutrophils % 6 Sodium Level 144, Potassium Level 3.3, Chloride Level 113, Carbon Dioxide Level 17, Blood Urea Nitrogen 21, Creatinine 0.92, Estimat Glomerular Filtration Rate 87, Glucose Level 122, Calcium Level 7.5, Phosphorus Level 0.8, Magnesium Level 1.6, Total Bilirubin 1.6, Aspartate Amino Transf (AST/SGOT) 170, Alanine Aminotransferase (ALT/SGPT) 104, Alkaline Phosphatase 96, Total Protein 4.9, Albumin 2.7 Activated Partial Thromboplast Time 35.9 Lactic Acid Level 3.0 Troponin T < 0.010 . Result Diagram: 07/20/16 0532 07/20/16 0532 Microbiology Blood culture positive for Gram negative rods X-Rays, CTs and MRIs X-RAY CHEST, TWO VIEWS (07/20/16) IMPRESSION: Mild interstitial prominence similar to prior examination. Dictated and approved by: Juan Pablo FROST Interpreted: Mynor Burrows MD on 2015 at 10:38 PROCEDURE: CT KUB (07/20/16) IMPRESSION: 1. 3 x 5 mm proximal right ureteral stone causing mild right-sided hydronephrosis. 2. 2 mm in diameter right UVJ stone. 3. Multiple bilateral nonobstructing renal cortical stones. Dictated and approved by: Martine Teixeira MD, PhD on 07/20/2016 at 9:53 PROCEDURE: X-RAY CHEST ONE VIEW, PORTABLE (07/20/16) IMPRESSION: 1. Placement right IJ CVL tube tip projected over the right internal jugular vein. 2. Interstitial prominence similar to prior examination. Mild edema or atypical pneumonia cannot be excluded. Correlate clinically. Dictated by: Juan Pablo iLttle RRA Interpreted: Mynor Burrows MD on 07/20/2016 at 11:20 Transcribed by: IVAN on 07/20/2016 at 11:20 Approved by: Mynor Burrows M.D. on 07/20/2016 at 17:03 Cardiac Echo Impressions Echocardiogram Report (07/20/16) Interpretation Summary The left ventricle is normal in size, wall thickness, and systolic function without any focal wall motion abnormalities. The ejection fraction is estimated to be 60-65%. There are no focal wall motion abnormalities. The right ventricle is not well visualized. The right ventricle grossly appears normal in size with probable normal systolic function. Assessment of diastolic parameters indicates a relaxation abnormality of the left ventricle, consistent with normal filling pressures. There is no significant valvular heart disease. No other echocardiographic abnormalities seen. No obvious cause for the patients hypotension noted. Reading Physician:05:00 PM Assessment & Plan Aida Armenta is a 66-year-old female with a past medical history significant for nephrolithiasis, gastritis, obesity, and hypothyroidism who presented to the ED with a week history of right sided abdominal pain, nausea and vomiting. CT of abdomen and pelvis without contrast shows right hydronephrosis and proximal hydroureter secondary to a proximal nonobstructing 3 mm stone and a second distal right ureteral stone measuring 2 mm at the UVJ Admitted on 07/20 for sepsis likely secondary to infected ureteral stone. 1. Sepsis, present on admission. Active. - Met criteria on admission with elevated temp, hypotension, tachycardia and probable urinary source for infection. - Admitted to CCU, fluid resuscitation ongoing and requiring pressor support. - IV Norepinephrine to maintain map of 65 or greater - Lactic acid trending down (7.5 on admission). Will continue to trend. - Continue 2 g IV Ceftriaxone every 24 hours. - Blood cultures positive for gram negative rods - Urine culture pending 2. Right ureteral calculus, present on admission. Active. - CT KUB showed multiple stones bilaterally and a proximal right ureteral stone causing right-sided hydronephrosis - Urology consulted from the ED, patient to OR today for cystoscopy and right stent placement by Dr. Martinez - Per Urology, outpatient follow up for definitive therapy once sepsis resolves - Continue antibiotic, as above. - IV Fentanyl as needed for severe pain Chronic conditions, present on admission. Ongoing. 1. History of asthma- Duonebs prn q6h 2. Hypothyroidism- Continue home Levothyroxine 3. GERD-40mg IV Protonix q12h. Consider transition to home dosing of oral PPI, Omeprazole when no longer NPO. Acetaminophen-fever/headache/mild/moderate pain Antiemetics, as needed Bowel regimen, as needed. Disposition: Anticipated discharge home with family in 2-3days pending resolution of sepsis and Urology recommendations. GI Prophylaxis: Proton Pump Inhibitor VTE Mechanical Devices: Intermittant Pneumatic CD Resuscitation Status: CPR: Attempt Resuscitation Attending Statement The patient was seen and examined together with Dr. Flores on 07/20/2016 and I agree with the history, exam and plan as outlined in the note above. . Em Flores DO Jul 20, 2016 10:18 Heath Mclean MD Jul 22, 2016 14:36
--- NOTE | 2016-07-20 21:06 | DRSVH ---
PROCEDURE: X-RAY PICC LINE PLACEMENT BY NURSE ([id number]) INDICATIONS: need access for pressors COMPARISON: None. FINDINGS: PICC was placed by the intravenous therapy team from the right side. Fluoroscopic spot fi lm demonstrates tip of PICC in the lower SVC. IMPRESSION: Tip of PICC lies within the lower SVC. Dictated by: Lionel Valenzuela M.D. on 07/20/2016 at 21:05 Approved by: Lionel Valenzuela M.D. on 07/20/2016 at 21:05
[2016-07-20] MEDS: Ondansetron 2 mg/mL 2 mL Inj IVPUSH PRN (21:14)
[2016-07-21] VITALS (9 sets, daily range): BP systolic 97–121; BP diastolic 55–80; PULSE 78–96; RESP 22–32; O2SAT 96–98
[2016-07-21 01:58] LABS: Magnesium 1.6 mg/dL (1.6-2.6)
--- NOTE | 2016-07-21 04:00 | NUR ---
LA Lactic acid trending up. notified. Reports we will continue to monitor. Care ongoing
[2016-07-21] MEDS ORDERED: cefTRIAXone Inj 2,000 MG in IV Premix 1 EACH IV SCH (05:00)
[2016-07-21] MEDS: 0.9% Sodium Chloride 1,000 ML IV SCH (05:50)
[2016-07-21] MEDS: Pantoprazole 4 mg/mL 10 mL Inj IVPUSH SCH ×2 (05:50→17:54)
[2016-07-21] MEDS: Ondansetron 2 mg/mL 2 mL Inj IVPUSH PRN (06:23)
[2016-07-21 06:29] LABS: Mean Corpuscular Hemoglobin 29.7 pg (27.0-35.0); Mean Corpuscular Volume 91.4 fL (81-100); Platelet Count 102 bil/L (150-400)
--- NOTE | 2016-07-21 06:42 | NUR ---
Nausea/Rodrigues/BP Pt had 2 episodes of feeling nauseated. IV Meds given as ordered and has helped. Rodrigues continues to drain red urine with tiny clots. Seems to be clearing up some, but pts family worried despite reassurance. BP remains hypotensive and pt continues to need small dose of Levophed to keep MAP >65. Family and pt aware of plan and goals. Care ongoing.
[2016-07-21] MEDS: Sodium Chloride LOK Flush 10 mL Syringe IVFLUSH SCH ×2 (07:32→16:30)
[2016-07-21] MEDS: fentaNYL-PF 50 mCg/mL 2 mL Inj IVPUSH PRN ×2 (07:32→11:38)
[2016-07-21 07:56] LABS: BASOPHILS % (AUTO) 0 % (0-3); EOSINOPHILS % (AUTO) 0 % (0-5); MONOCYTES % (AUTO) 3 % (4-12); NEUTROPHILS % (AUTO) 82 % (40-74)
[2016-07-21] MEDS ORDERED: MetoCLOpramide 5 mg/mL 2 mL Inj IVPUSH PRN (08:00)
[2016-07-21] MEDS: Timolol-Dorzolamide 10 mL Ophthalmic Solution LEFT_EYE SCH ×2 (08:30→20:44)
[2016-07-21] MEDS: Lactated Ringer's 1,000 ML IV SCH ×2 (08:59→17:54)
[2016-07-21] MEDS: Albuterol-Ipratropium 3 mL Inhalation Solution NEB PRN ×2 (09:35→17:27)
--- NOTE | 2016-07-21 11:34 | CONS ---
[address] [address] CONSULTATION REPORT PATIENT: CARMEN CARLTON : 1950 MR#: [id number] ADMIT: 07/20/2016 JOB ID: [id number] DATE OF SERVICE: 07/21/2016 INFECTIOUS DISEASE CONSULT: I thank Dr. Em Flores for this consult. REASON FOR CONSULTATION: Bacteremic E. coli urinary tract infection, with septic shock. HISTORY OF PRESENT ILLNESS: The patient is a 66-year-old, female, who was admitted to this facility on July 20 in the [facility] hours. She reported she was well until July 17, when she developed abdominal pain, nausea, vomiting, right-sided flank pain and generalized malaise. These symptoms worsened over a period of a couple of days which led her to seek care, and she was subsequently admitted on the . At the time of admission, the patient was quite severely ill with fever, abdominal pain, right flank pain and chills. It was felt that in view of her prior history of nephrolithiasis, she could have a significant urinary tract infection again, and a CT scan of the abdomen and pelvis showed right hydronephrosis with a nonobstructing stone, apparently. The patient was, at that time, also found to have a very profound lactic acidosis, as well as leukocytosis, and urinalysis showed hematuria, as well as pyuria. The patient was appropriately cultured and started on ceftriaxone as an empiric antibiotic for probable severe and complicated urinary tract infection. Urology was consulted, and yesterday, July 20, the patient underwent placement of a right-sided ureteral stent by Dr. Martine Martinez. The patient is currently in the ICU because she has required vasopressor agents, as well as close monitoring, following her stent placement. This morning the patient is awake and alert, and she tells us that she still having some sweats but no overt fevers or chills. She is a bit short of breath and still requiring some nasal oxygen, some nausea, as well as right-sided flank pain and epigastric pain persist, though, overall, she has improved somewhat. Infectious Disease consultation is requested regarding her persistent lactic acidosis, as well as her worsening leukocytosis, and continued borderline hypotension requiring low-dose vasopressor agents. PAST MEDICAL HISTORY: Notable for: 1. Nephrolithiasis. 2. History of prior urinary tract infections. 3. History of gastritis. 4. Obesity. 5. Hypothyroidism. 6. Multiple respiratory tract infections including bronchitis and pneumonia. SOCIAL HISTORY: The patient was born in [place], [place]. She is a lifelong nonsmoker, and does not drink significant amounts of alcohol. FAMILY HISTORY: Interesting in that her grandfather had pulmonary tuberculosis by report. The patient states she has never been tested for tuberculosis nor does she have any personal history of TB. REVIEW OF SYSTEMS: The patient currently has no headache or acute visual complaints. She has no sore throat. She has does not have significant cough but she is moderately short of breath even lying flat in bed with face mask oxygen in place. No chest pain. She has had nausea and vomiting, which have been a prominent feature of this illness. She also has some epigastric and right flank pain. She denies having had dysuria or hematuria prior to admission and, of course, now, she has a Rodrigues, so it is hard to tell. The patient states her ankles and knees have been hurting more than normal recently. No other focal complaints noted. PHYSICAL EXAMINATION: Reveals a reasonably comfortable woman who looks about 66 years old. Her BMI is 34. Her weight is 85. Her temperature 36.9. She was febrile to 39.4 when she was admitted when she was first evaluated just after midnight yesterday, with the highest fever in the [facility] hours yesterday 39.7. Currently, her pulse is in the 80s, respiratory rate in the 20s, blood pressure 100/50, but that is on 0.03 mcg of norepinephrine. She is saturating well but requiring a 5 L face mask. She is alert and oriented. Sinuses nontender. Eyes without conjunctivitis, though her conjunctivae are a bit pale. The nose normal. Oral cavity benign. Neck without notable adenopathy. Lungs: Decreased breath sounds bilaterally. She is not inspiring very deeply. Cardiac tones: Regular rate and rhythm without murmur. Abdomen with some mild epigastric tenderness and some very pronounced right flank tenderness. No masses or ascites are noted. She has a Rodrigues catheter. Joints without synovitis. No skin rash noted. She is neurologically grossly intact. LABORATORY STUDIES: White count was 6000 when she hit the ED yesterday [facility]. By later in the morning yesterday, 16,000 and today, it has doubled again to 32,000, with a profound left shift including 13% band forms. Platelet count dropping also from 134 to 102. Creatinine 0.73. LFT notable for ALT of 87, AST 64, bili slightly up at 1.5. Urinalysis greater than 50 red cells and only 6-10 white cells, interestingly. Blood cultures 10/25 now growing an E. coli. Susceptibilities not yet available. Urine culture also growing an E. coli with greater than 100,000 colonies. Rapid flu screen negative. IMAGING: Includes the original CT scan yesterday which shows a proximal right ureteral stone causing right-sided hydronephrosis. There are also multiple bilateral nonobstructing renal cortical stones. A retroperitoneal ultrasound done yesterday evening shows no hydronephrosis or . A PICC line has been placed as well. The chest x-ray yesterday on admission showed interstitial prominence bilaterally but without any notable abnormalities. That interstitial prominence was also noted on a chest x-ray done several years ago. IMPRESSION: This patient has a relatively classic presentation of bacteremic Escherichia coli urinary tract infection secondary to an obstructing stone on the right which has now been stented. The patient remains quite ill in that she has a progressive leukocytosis and is requiring low-dose vasopressor agents, as well as supplemental oxygen but overall, by report, she is better than when she reached the hospital, and her moderating fever curve supports that impression. Her continued cough, albeit nonproductive, and shortness of breath raise the possibility of whether she could have a superimposed viral process. Another concern here is whether or not the patient could have an extended spectrum beta lactamase Escherichia coli, which would be resistant the ceftriaxone she is receiving. I find this unlikely but certainly not impossible, as we have seen community-acquired extended spectrum beta lactamase Escherichia coli in this hospital this year. RECOMMENDATIONS: 1. Until we have back susceptibilities, will change the ceftriaxone to ertapenem. 2. QuantiFERON Gold will be checked because of her exposure to her grandfather who had TB. 3. Respiratory viral PCR will be checked. 4. Repeat chest radiograph will be checked. 5. Hepatitis C will be checked as part of general health screening. 6. Will continue to closely follow this patient with you. Will modify her antibiotics contingent on tomorrow's susceptibility testing.
[2016-07-21] MEDS: Ertapenem Inj 1,000 MG in 0.9% Sodium Chloride 50 ML IV SCH (12:53)
--- NOTE | 2016-07-21 13:00 | PCM.PNMED ---
Subjective Date of Service Jul 21, 2016 Subjective Aida Armenta is a 66-year-old female with a past medical history significant for nephrolithiasis, gastritis, obesity, and hypothyroidism who presented to the ED with a week history of right sided abdominal pain, nausea and vomiting. Admitted on 07/20 for sepsis likely secondary to infected ureteral stone. Patient is found this morning in mild distress related to nausea and breathing difficulty, requesting a DuoNeb. She reports abdominal discomfort and bloating as well has breathing difficulty. She states that she doesn't feel like she can take a deep breath, patient requesting a breathing treatment. Hypotensive, still requiring pressor support overnight. Lactic acid and white blood cell count trended up overnight. Per nursing, patient had two episodes of nausea. Rodrigues continued to drain red urine with tiny clots, which appeared to be improving. Exam Vital Signs Vital Sign - Last Date Time Temp Pulse Resp B/P Pulse Ox O2 Delivery O2 Flow Rate FiO2 07/21/16 05:45 88 22 101/55 97 OxyMask 5.00 07/21/16 00:34 36.9 Intake and Output 07/20/16 07/20/16 07/21/16 Cumulative From/Thru 15:00 23:00 07:00 07/20/16 00:36 - 07/20/16 17:15 Intake Total 500 ml 3596 ml 8096 ml Output Total 200 ml 1700 ml 2700 ml Balance 300 ml 1896 ml 5396 ml Intake Oral 100 ml 100 ml IV Total 500 ml 3496 ml 7996 ml Output Urine Total 200 ml 1700 ml 2700 ml # Bowel Movements 0 0 Exam General: Well-developed, obese female lying in bed, in mild respiratory distress , lethargic but appropriately interactive HEENT: Normocephalic, atraumatic. PERRLA, anicteric sclerae. Moist mucosa. Neck: Supple, nontender. No jugular venous distension. No lymphadenopathy or thyromegaly. Cardiovascular: Regular rate and rhythm with no murmurs, rubs, or gallops appreciated Pulmonary: Lung sounds diminished, clear to auscultation bilaterally with shallow breathing noted and no use of accessory muscles. Abdomen: Bowel tones present. Soft, diffusely tender to palpation, nondistended. No hepatosplenomegaly or masses appreciated. Extremities: No clubbing, cyanosis, mild edema upper and lower extremities bilaterally Skin: Normal temperature, turgor, and texture; no rash, ulcers, or subcutaneous nodules appreciated. Neurological: Cranial nerves grossly intact. Normal muscle strength, tone, and bulk. Psychiatric: Alert and oriented, mood and affect appropriate. IVs and Medications Medications Reviewed: Medications were reviewed in detail Lab and Diagnostics White Blood Count 32.0, Red Blood Count 3.97, Hemoglobin 11.8, Hematocrit 36.3, Mean Corpuscular Volume 91.4, Mean Corpuscular Hemoglobin 29.7, Mean Corpuscular Hemoglobin Concent 32.5, Red Cell Distribution Width 15.6, Platelet Count 102, Neutrophils (%) (Auto) 82, Lymphocytes (%) (Auto) 2, Monocytes (%) ( Auto) 3, Eosinophils (%) (Auto) 0, Basophils (%) (Auto) 0, Band Neutrophils % 13 Sodium Level 146, Potassium Level 4.2, Chloride Level 118, Carbon Dioxide Level 15, Blood Urea Nitrogen 20, Creatinine 0.73, Estimat Glomerular Filtration Rate 114, Glucose Level 121, Calcium Level 7.2, Total Bilirubin 1.5, Aspartate Amino Transf (AST/SGOT) 64, Alanine Aminotransferase (ALT/SGPT) 87, Alkaline Phosphatase 106, Total Protein 5.3, Albumin 2.8, Procalcitonin 69.82 Phosphorus Level 2.7, Troponin T < 0.010 Potassium Level 4.3, Magnesium Level 1.6 Lactic Acid Level 3.4 Result Diagram: 07/20/16 0532 07/21/16 0120 Microbiology Blood culture positive for Gram negative rods X-Rays, CTs and MRIs X-RAY CHEST, TWO VIEWS (07/20/16) IMPRESSION: Mild interstitial prominence similar to prior examination. Dictated and approved by: Juan Pablo Little RRA Interpreted: Mynor Burrows MD on 2015 at 10:38 PROCEDURE: CT KUB (07/20/16) IMPRESSION: 1. 3 x 5 mm proximal right ureteral stone causing mild right-sided hydronephrosis. 2. 2 mm in diameter right UVJ stone. 3. Multiple bilateral nonobstructing renal cortical stones. Dictated and approved by: Martine Teixeira MD, PhD on 07/20/2016 at 9:53 PROCEDURE: X-RAY CHEST ONE VIEW, PORTABLE (07/20/16) IMPRESSION: 1. Placement right IJ CVL tube tip projected over the right internal jugular vein. 2. Interstitial prominence similar to prior examination. Mild edema or atypical pneumonia cannot be excluded. Correlate clinically. Dictated by: Juan Pablo Little RRA Interpreted: Mynor Burrows MD on 07/20/2016 at 11:20 Transcribed by: IVAN on 07/20/2016 at 11:20 Approved by: Mynor Burrows M.D. on 07/20/2016 at 17:03 RENAL SONOGRAM IMPRESSION: No hydronephrosis. Dictated and approved by: Lionel Valenzuela M.D. on 07/20/2016 at 19:46 Cardiac Echo Impressions Echocardiogram Report (07/20/16) Interpretation Summary The left ventricle is normal in size, wall thickness, and systolic function without any focal wall motion abnormalities. The ejection fraction is estimated to be 60-65%. There are no focal wall motion abnormalities. The right ventricle is not well visualized. The right ventricle grossly appears normal in size with probable normal systolic function. Assessment of diastolic parameters indicates a relaxation abnormality of the left ventricle, consistent with normal filling pressures. There is no significant valvular heart disease. No other echocardiographic abnormalities seen. No obvious cause for the patients hypotension noted. Reading Physician:05:00 PM Assessment & Plan Aida Armenta is a 66-year-old female with a past medical history significant for nephrolithiasis, gastritis, obesity, and hypothyroidism who presented to the ED with a week history of right sided abdominal pain, nausea and vomiting. CT of abdomen and pelvis without contrast shows right hydronephrosis and proximal hydroureter secondary to a proximal nonobstructing 3 mm stone and a second distal right ureteral stone measuring 2 mm at the UVJ Admitted on 07/20 for sepsis likely secondary to infected ureteral stone. 1. Sepsis, present on admission. Active. - Met criteria on admission with elevated temp, hypotension, tachycardia and probable urinary source for infection. - Continue IV fluids, LR at 100mls/hr. Titrate down on norepinephrine as tolerated, currently 0.03mcg/kg/min - Lactic acid trended down yesterday. Trending back up slightly this morning. Will continue to monitor. - White blood cell count up to 32.0 from 16.5 yesterday. - Blood cultures positive for gram negative rods - Urine culture preliminary results E.coli - Consulted Infectious disease, recommend switch to Ertapenem pending sensitivities. - Continue antibiotics, per ID. 2. Pyelonephritis, present on admission. Active. - Right-sided hydronephrosis on CT KUB - Blood cultures and urine cultures positive for E. coli - Continue IV fluids, antibiotics and trending of infectious markers as above. 3. Right ureteral calculus, present on admission. Active. - CT KUB showed multiple stones bilaterally and a proximal right ureteral stone causing right-sided hydronephrosis - Urology consulted and patient taken to the OR (07/20) for cystoscopy and right stent placement by Dr. Martinez - Per Urology, outpatient follow up for definitive therapy once sepsis resolves - Renal ultrasound ordered due to pt reported abdominal pain/distention following stent placement and showed: No free pelvic fluid and no hydronephrosis. - Continue antibiotic, as above. - IV Fentanyl as needed for severe pain Chronic conditions, present on admission. Ongoing. 1. History of asthma- Duonebs prn q6h 2. Hypothyroidism- Continue home Levothyroxine 3. GERD-40mg IV Protonix q12h. Consider transition to home dosing of oral PPI, Omeprazole when no longer NPO. Acetaminophen-fever/headache/mild/moderate pain Antiemetics, as needed Bowel regimen, as needed. Disposition: Anticipated discharge home with family in 2-3days pending resolution of sepsis and Urology recommendations. Pain Evaluation: Adequate Pain Control GI Prophylaxis: Proton Pump Inhibitor VTE Mechanical Devices: Intermittant Pneumatic CD Resuscitation Status: CPR: Attempt Resuscitation Attending Statement The patient was seen and examined together with Dr. Flores on 07/21/2016 and I agree with the history, exam and plan as outlined in the note above. . Em Flores DO Jul 21, 2016 05:49 Heath Mclean MD Jul 22, 2016 14:37
--- NOTE | 2016-07-21 14:24 | NUR ---
Social Work: Initial Assessment D: Per EMR review, pt is a 66 year old female admitted for hydronephrosis R Ureteral Stone Sepsis. Pt is Medicare with [employer] Supp[employer]; Pt has no LTC insurance or VA benefits. PCP is Julio Hutchinson MD. NOK is Adolfo Armenta, spouse, . Advanced directives information provided to pt by CIGARETTE MACHINE OPERATOR. Readmit score is low, 0/8. CIGARETTE MACHINE OPERATOR met with pt and family at bedside. Sw role explained. See initial assessment. Pt lives in [place] with her spouse. She is I at baseline, uses no DME and continues to drive. Pt denies any HH or skilled rehab placement history. Pt states she lives in a single story home with 2 steps to enter. Per MD at rounds, pt expected to be here 3-4 more days for treatment A: Pt who is I at baseline. P: CIGARETTE MACHINE OPERATOR to continue to follow and assist with dcp once pt's needs and care become more clear CHARLY Feliciano Addendum: 07/21/16 at 1430 by SOLA MELGAR Amended: Links added.
--- NOTE | 2016-07-21 16:30 | DRSVH ---
PROCEDURE: X-RAY CHEST ONE VIEW, PORTABLE ([id number]) INDICATIONS: sob TECHNIQUE: One view of the chest was acquired. COMPARISON: [facility], CR, XR CHEST 1VW (PORTABLE), 07/20/2016, 3:34. FINDINGS: Surgical changes and devices: Right PICC present projected over the lower SVC. Lungs and pleura: No pleural effusions or pneumothorax. Lung volumes are low and bibasilar airspace opacities are present. Mediastinum: Mediastinal contours appear normal. Heart size is normal. Bones and chest wall: No suspicious bony lesions. Overlying soft tissues appear unremarkable. IMPRESSION: Bibasilar atelectasis versus aspiration or pneumonia. Correlate clinically. Dictated by: Juan Pablo Little RRA Interpreted: Martine Teixeira MD on 07/21/2016 at 16:29 Transcribed by: NEAL on 07/21/2016 at 16:29 Approved by: Martine Teixeira MD, PhD on 07/21/2016 at 16:45
[2016-07-21] MEDS ORDERED: 0.9% Sodium Chloride 250 ML ONE (18:42)
[2016-07-21] MEDS: Acetaminophen IV 1,000 MG in IV Premix 1 EACH IV PRN (18:46)
--- NOTE | 2016-07-21 20:24 | NUR ---
Levophed/Transfer to PCC Pt titrated off Levophed gtt. BP WNL and stable. Orders to transfer to PCC when off pressors and stable. Pt currently PCC status. Stable and is currently resting. Care ongoing
[2016-07-22] VITALS (12 sets, daily range): BP systolic 110–135; BP diastolic 67–89; PULSE 77–100; RESP 22–40; O2SAT 92–100
[2016-07-22] MEDS: Ertapenem Inj 1,000 MG in 0.9% Sodium Chloride 50 ML IV SCH (00:32)
[2016-07-22] MEDS: Sodium Chloride LOK Flush 10 mL Syringe IVFLUSH SCH ×3 (00:32→16:51)
[2016-07-22] MEDS: Norepinephrine 8,000 mCg/250 mL D5W Premix IV SCH (00:35)
[2016-07-22] MEDS: Norepineph 8,000 mCg/250 mL NS 8,000 MCG in IV Premix 1 EACH IV SCH (00:35)
[2016-07-22] MEDS: Lactated Ringer's 1,000 ML IV SCH ×4 (00:35→20:42)
[2016-07-22] MEDS: Albuterol-Ipratropium 3 mL Inhalation Solution NEB PRN ×2 (02:53→08:17)
[2016-07-22] MEDS: Pantoprazole 4 mg/mL 10 mL Inj IVPUSH SCH ×2 (05:09→16:51)
[2016-07-22 05:25] LABS: Mean Corpuscular Hemoglobin 30.1 pg (27.0-35.0); Mean Corpuscular Volume 90.4 fL (81-100); Platelet Count 99 bil/L (150-400)
[2016-07-22 05:26] LABS: BASOPHILS % (AUTO) 0 % (0-3); EOSINOPHILS % (AUTO) 0 % (0-5); MONOCYTES % (AUTO) 2 % (4-12); NEUTROPHILS % (AUTO) 77 % (40-74)
--- NOTE | 2016-07-22 06:26 | NUR ---
PCC from CCU/SOB Transferred from CCU to PCC , SOB while changing Bed . LR @ 125, NS @ TKO for ABX, 5 L O2 per Oxy mask. Rodrigues draining Dark [place] Urine to gravity. Tele S-Tach/SR .
[2016-07-22] MEDS: Timolol-Dorzolamide 10 mL Ophthalmic Solution LEFT_EYE SCH ×2 (08:06→20:34)
--- NOTE | 2016-07-22 10:27 | DRSVH ---
PROCEDURE: X-RAY CHEST ONE VIEW, PORTABLE ([id number]) INDICATIONS: shortness of breath TECHNIQUE: One view of the chest was acquired. COMPARISON: [facility], CR, XR CHEST 1VW (PORTABLE), 07/21/2016, 11:02. FINDINGS: Surgical changes and devices: Right PICC present tip projected over the lower SVC. Right upper quadr ant surgical clips. Lungs and pleura: No pleural effusions or pneumothorax. Lung volumes are low and bibasilar airspace opacities are present not significantly changed. Mediastinum: Mediastinal contours appear normal. Heart size is normal. Bones and chest wall: No suspicious bony lesions. Overlying soft tissues appear unremarkable. IMPRESSION: Bibasilar airspace opacities similar to prior examination consistent with atelectasis jerry aguila aspiration or pneumonia. Dictated by: Juan Pablo Little [facility] Interpreted: Martine Teixeira MD on 07/22/2016 at 10:27 Transcribed by: NEAL on 07/22/2016 at 10:27 Approved by: Martine Teixeira MD, PhD on 07/22/2016 at 16:12
--- NOTE | 2016-07-22 10:31 | PROG NOTE ---
[address] [address] PROGRESS NOTE PATIENT: CARMEN CARLTON : 1950 MR#: [id number] ADMIT: 07/20/2016 JOB ID: [id number] DATE: 07/22/2016 REASON FOR FOLLOWUP: Sepsis secondary to bacteremic complicated E. coli urinary tract infection with respiratory failure secondary to human metapneumovirus infection. INTERVAL HISTORY: Overnight, the patient has been moved from the ICU to the [facility], and she is improved slightly but remains quite short of breath requiring considerable supplemental oxygen. She denies having subjective fevers or chills but has had sweats overnight. She continues to be short of breath but without much in the way of productive cough. The patient still has a Rodrigues catheter. Recall that a stent was placed by Urology earlier in the hospital stay. PHYSICAL EXAMINATION: Reveals a moderately uncomfortable short of breath woman lying supine in her hospital room. Her temperature is 36.8. Recall that back on the when she was admitted, she spiked almost 40 degrees on two occasions and subsequently has basically completely defervesced and has been afebrile now for about 48 hours. Her pulse is 84, respiratory rate remains 28, blood pressure 134/81. She is saturating well but requiring her 7 L face mask. The mental status is clear in that she is alert but obviously uncomfortable. Face mask oxygen is present. Oral cavity without notable abnormalities. Lungs with bilateral wheezes through most of her lung prieto and relatively poor air flow bilaterally. Cardiac tones are distant. The patient's abdomen is slightly distended but relatively nontender. Rodrigues catheter is present. LABORATORIES: Include white count which has really not changed. It is 30,000 today, still with left shift, 18% bands. Platelet count 99,000 which is actually dropping. Creatinine 0.51 which is actually improved. ALT is 68, which is also improved, and the bilirubin is normalized to 1. Procalcitonin yesterday was 70, which is essentially the same as on the . Urinalysis had 6-10 white cells and grew a pansusceptible E. coli. Blood cultures grew the same organism. The respiratory viral panel we ordered yesterday has come back positive for human metapneumovirus. A chest x-ray done yesterday showed bibasilar atelectasis or pneumonia. We viewed today's chest x-ray on the screen and see what appears to be considerable right lower lobe atelectasis or pneumonia, but this was a very poor inspiratory effort. IMPRESSION: This is a complex case of a woman who is admitted with bacteremic E. coli urinary tract infection due to a stone, so this is clearly what would be called a complicated urinary tract infection. She required vasopressors initially but now is off pressors and a bit better, though she remains very short of breath. The viral panel that was obtained yesterday shows at least some of the shortness of breath is due to a respiratory viral infection with human metapneumovirus, and there is also, of course, a component of sepsis contributing to her shortness of breath, I am sure. RECOMMENDATIONS: 1. Will narrow our antibiotics considerably and switch her to ampicillin 2 g IV q.4 h. via her PICC line. 2. I have asked the nurses to take out the two peripheral IVs that are present, as she does not need them now that she has a PICC. 3. We await the QuantiFERON Gold. 4. Will continue to follow this complex patient very closely with you. As she improves, she could probably be discharged on oral Septra or Cipro, but I suspect she will need to be in the hospital a few more days until her overall situation and especially her respiratory status improves markedly.
[2016-07-22] MEDS: Acetaminophen IV 1,000 MG in IV Premix 1 EACH IV PRN (11:35)
[2016-07-22] MEDS: Ampicillin Inj 2,000 MG in 0.9% Sodium Chloride 100 ML IV SCH ×3 (12:47→20:34)
--- NOTE | 2016-07-22 13:02 | NUR ---
NUTRITION FOLLOW-UP: ASSESS: Pt is a 66yo F admitted to CCU for hydronephrosis and R Ureteral Stone. Pt went to OR for cystoscopy and urethral stent 07/20. She is to have a ST eval today. Pt has been NPOx3 days. PMHX: GERD, hypothyroid, gastritis, kidney stones LABS: Reviewed. Cl 114, faith doctor .51, Ca 8.4, ALT 68, Alb 2.6 MEDS: Reviewed. Reglan, fentanyl GI: 0 BM SKIN: Rickey 14 CURRENT WTS: 85.3kg, BMI 34.4kg/m2, IBW 50kg, admit wt 83.4kg DIET: NPO EST. NEEDS: BMI Kcals: 1660-1830kcal/day (20-22kcal/kg) Pro: 60-75g/day (1.2-1.5g/kg IBW) Fluids: 2000-2500ml/day (25-30cc/kg) NUTRITION DIAGNOSIS: 1.) Inadequate oral intake related to decreased ability to consume sufficient energy as evidenced by current NPO status.--PERSISTS NUTRITION INTERVENTION: 1.) Advance diet per ST recommendation 2.) Will continue to monitor NPO status MONITOR / EVAL: NPO, GI, labs, wt, POC, nutrition status. Will continue to monitor per high nutrition risk guidelines
--- NOTE | 2016-07-22 14:02 | PCM.PNMED ---
Subjective Date of Service Jul 22, 2016 Subjective Aida Armenta is a 66-year-old female with a past medical history significant for nephrolithiasis, gastritis, obesity, and hypothyroidism who presented to the ED with a week history of right sided abdominal pain, nausea and vomiting. Admitted on 07/20 for pyelonephritis and sepsis likely secondary to infected ureteral stone. Patient is found this morning visiting with family. She is tachypneic but appears comfortable, oxymask in place and SpO2 98% on 5L. Reports ongoing abdominal distention with mild discomfort and a non-productive cough, with noted improvement in her breathing following Duonebs. She states that she is not able to cough anything up but feels like she has mucus in her chest. Denies chest pain, palpitations, abdominal pain, nausea or vomiting. Family and patient would like to get up for more activity today. Discussed yesterday's chest xray result and positive metapneumovirus with patient and family. No acute events overnight. Patient hemodynamically stable, titrated off pressors and transferred from CCU to PCC. Per nursing, patient shortness of breath with activity. SpO2 98% on 5L Oxymask. Rodrigues continues to drain pink urine. Exam Vital Signs Vital Sign - Last Date Time Temp Pulse Resp B/P Pulse Ox O2 Delivery O2 Flow Rate FiO2 07/22/16 09:08 36.8 07/22/16 08:17 84 28 99 Aerosol Mask 7.00 07/22/16 08:11 134/81 Intake and Output 07/21/16 07/21/16 07/22/16 Cumulative From/Thru 15:00 23:00 07:00 07/20/16 00:36 - 07/22/16 06:40 Intake Total 1443 ml 1236 ml 67820 ml Output Total 1350 ml 1400 ml 6750 ml Balance 93 ml -164 ml 7414 ml Intake Oral 0 ml 100 ml IV Total 1443 ml 1236 ml 61450 ml Output Urine Total 1350 ml 1400 ml 6750 ml # Bowel Movements 0 0 Exam General: Obese female lying in bed, alert and oriented, appropriately interactive HEENT: Normocephalic, atraumatic. PERRLA, anicteric sclerae. Moist mucosa. Neck: Supple, nontender. No lymphadenopathy or thyromegaly. No JVD Cardiovascular: Tachycardic, regular rhythm with no murmurs, rubs, or gallops appreciated Pulmonary: Lung sounds diminished, overall clear to auscultation bilaterally with shallow breathing noted and mild expiratory wheezing, no use of accessory muscles. Abdomen: Bowel tones present. Soft, diffusely tender to palpation, nondistended. No masses appreciated. Extremities: No clubbing, cyanosis, mild edema upper and lower extremities bilaterally Neurological: Cranial nerves grossly intact. Normal muscle strength, tone, and bulk. Psychiatric: Mood and affect normal IVs and Medications Medications Reviewed: Medications were reviewed in detail Lab and Diagnostics Procalcitonin 69.82 Lactic Acid Level 3.3, Hepatitis C Antibody <0.1 White Blood Count 30.4, Red Blood Count 3.85, Hemoglobin 11.6, Hematocrit 34.8, Mean Corpuscular Volume 90.4, Mean Corpuscular Hemoglobin 30.1, Mean Corpuscular Hemoglobin Concent 33.3, Red Cell Distribution Width 15.9, Platelet Count 99, Neutrophils (%) (Auto) 77, Lymphocytes (%) (Auto) 3, Monocytes (%) ( Auto) 2, Eosinophils (%) (Auto) 0, Basophils (%) (Auto) 0, Band Neutrophils % 18 Sodium Level 144, Potassium Level 4.2, Chloride Level 114, Carbon Dioxide Level 19, Blood Urea Nitrogen 17, Creatinine 0.51, Estimat Glomerular Filtration Rate 172, Glucose Level 81, Calcium Level 8.4, Total Bilirubin 1.0, Aspartate Amino Transf (AST/SGOT) 48, Alanine Aminotransferase (ALT/SGPT) 68, Alkaline Phosphatase 140, Total Protein 5.4, Albumin 2.6 Result Diagram: 07/22/16 0450 07/22/16 0450 Microbiology Blood cultures positive for E. coli. Respiratory viral panel positive for metapneumovirus. Influenza negative. X-Rays, CTs and MRIs X-RAY CHEST ONE VIEW, (07/21/16) IMPRESSION: Bibasilar atelectasis versus aspiration or pneumonia. Correlate clinically. Dictated by: Juan Pablo Little RRA Interpreted: Martine Teixeira MD on 07/21/2016 at 16:29 Transcribed by: NEAL on 07/21/2016 at 16:29 Approved by: Martine Teixeira MD, PhD on 07/21/2016 at 16:45 X-RAY CHEST, TWO VIEWS (07/20/16) IMPRESSION: Mild interstitial prominence similar to prior examination. Dictated and approved by: Juan Pablo FROST Interpreted: Mynor Burrows MD on 2015 at 10:38 PROCEDURE: CT KUB (07/20/16) IMPRESSION: 1. 3 x 5 mm proximal right ureteral stone causing mild right-sided hydronephrosis. 2. 2 mm in diameter right UVJ stone. 3. Multiple bilateral nonobstructing renal cortical stones. Dictated and approved by: Martine Teixeira MD, PhD on 07/20/2016 at 9:53 PROCEDURE: X-RAY CHEST ONE VIEW, PORTABLE (07/20/16) IMPRESSION: 1. Placement right IJ CVL tube tip projected over the right internal jugular vein. 2. Interstitial prominence similar to prior examination. Mild edema or atypical pneumonia cannot be excluded. Correlate clinically. Dictated by: Juan Pablo FROST Interpreted: Mynor Burrows MD on 07/20/2016 at 11:20 Transcribed by: IVAN on 07/20/2016 at 11:20 Approved by: Mynor Burrows M.D. on 07/20/2016 at 17:03 US RENAL SONOGRAM IMPRESSION: No hydronephrosis. Dictated and approved by: Lionel Valenzuela M.D. on 07/20/2016 at 19:46 Cardiac Echo Impressions Echocardiogram Report (07/20/16) Interpretation Summary The left ventricle is normal in size, wall thickness, and systolic function without any focal wall motion abnormalities. The ejection fraction is estimated to be 60-65%. There are no focal wall motion abnormalities. The right ventricle is not well visualized. The right ventricle grossly appears normal in size with probable normal systolic function. Assessment of diastolic parameters indicates a relaxation abnormality of the left ventricle, consistent with normal filling pressures. There is no significant valvular heart disease. No other echocardiographic abnormalities seen. No obvious cause for the patients hypotension noted. Reading Physician:05:00 PM Assessment & Plan Aida Armenta is a 66-year-old female with a past medical history significant for nephrolithiasis, gastritis, obesity, and hypothyroidism who presented to the ED with a week history of right sided abdominal pain, nausea and vomiting. CT of abdomen and pelvis without contrast shows right hydronephrosis and proximal hydroureter secondary to a proximal nonobstructing 3 mm stone and a second distal right ureteral stone measuring 2 mm at the UVJ Admitted on 07/20 for pyelonephritis and sepsis likely secondary to infected ureteral stone. 1. Sepsis, present on admission. Active. - Met criteria with elevated temp, hypotension, tachycardia, UTI and bacteremia - Titrated off norepinephrine overnight, Lactic acid and white blood cell count trending down. - Blood and urine cultures positive for xiong-sensitive E.coli - Continue antibiotics, per Infectious Disease. (antibiotic day 3) - Continue IV fluids for now, discontinue as diet advances - Swallow evaluation, advance diet per speech 2. Pyelonephritis, present on admission. Active. - Right-sided hydronephrosis on CT KUB - Blood cultures and urine cultures positive for E. coli - Continue IV fluids, antibiotics and trending of infectious markers 3. Acute hypoxic respiratory failure, present on admission. Active. - Patient has history of asthma, albuterol rescue inhaler at home. Not on home O2 - Likely due to metapneumovirus and underlying asthma - Continue supplemental oxygen, acapella to help mobilize secretions and antibiotics per ID. 4.Possible pneumonia (aspiration vs community acquired), present on admission. Active - Patient presented after a week long history of abdominal pain, nausea and vomiting. Increasing risk of aspiration. - Respiratory viral panel positive for Metapneumovirus, negative for influenza. - Chest xray shows bibasilar atelectasis versus aspiration or pneumonia. - Procalcitonin 69.82, white blood cell count 30.4. - Continue trending of infectious markers. Antibiotics, per ID. - Consulted physical therapy, will increase activity as tolerated. 5. Right ureteral calculus, present on admission. Active. - CT KUB showed multiple stones bilaterally and a proximal right ureteral stone causing right-sided hydronephrosis - Urology consulted and patient taken to the OR (07/20) for cystoscopy and right stent placement by Dr. Martinez - Per Urology, outpatient follow up for definitive therapy once sepsis resolves - Renal ultrasound (07/20) showed no free pelvic fluid or hydronephrosis. - Antibiotics, as above. Chronic conditions, present on admission. Ongoing. 1. History of asthma- Duonebs prn q6h 2. Hypothyroidism- Continue home Levothyroxine 3. GERD-40mg IV Protonix q12h. Consider transition to home dosing of oral PPI, Omeprazole when no longer NPO. Acetaminophen-fever/headache/mild/moderate pain Antiemetics, as needed Bowel regimen, as needed. Disposition: Anticipated discharge home with family in 2-3days pending resolution of sepsis and improvement in respiratory status. Pain Evaluation: Adequate Pain Control GI Prophylaxis: Proton Pump Inhibitor VTE Mechanical Devices: Intermittant Pneumatic CD Resuscitation Status: CPR: Attempt Resuscitation Attending Statement The patient was seen and examined together with Dr. Flores on 07/22/2016 and I agree with the history, exam and plan as outlined in the note above. . Em Flores DO Jul 22, 2016 10:11 Heath Mclean MD Jul 22, 2016 14:43
--- NOTE | 2016-07-22 14:03 | NUR ---
Evaluation completed. Rec: Stim (pureed only) when upright and alert. Meds in applesauce. [employer] to follow Please go to "Notes" then click on "Assessments and Notes" (bottom left corner of screen). Then select appropriate discipline tab on top of screen.
[2016-07-22] MEDS ORDERED: 0.9% Sodium Chloride 250 ML ONE (16:42)
--- NOTE | 2016-07-22 18:09 | NUR ---
Respiration Pt this morning was on 7L oxymask and groggy, Pt. on 4L NC Spo2 95% this evening and more alert. Pt. is still SOB at rest and exertion, and sister in Pts. room at this time. Pt. states feeling better and is content with the care given.
[2016-07-22] MEDS: Albuterol 2.5 mg/3 mL Inhalation Solution NEB PRN (19:34)
[2016-07-23] VITALS (13 sets, daily range): BP systolic 102–142; BP diastolic 62–85; PULSE 74–96; RESP 20–32; O2SAT 90–98
[2016-07-23] MEDS: Albuterol 2.5 mg/3 mL Inhalation Solution NEB PRN ×3 (00:34→17:41)
[2016-07-23] MEDS: Ampicillin Inj 2,000 MG in 0.9% Sodium Chloride 100 ML IV SCH ×6 (00:39→20:50)
[2016-07-23] MEDS: Sodium Chloride LOK Flush 10 mL Syringe IVFLUSH SCH ×3 (00:40→16:08)
--- NOTE | 2016-07-23 02:56 | NUR ---
Kalyan/Edema/Cough Pt somewhat distressed with congestion , has requested PRN Neb treatments , , Lung sounds quite noisy , coughing intermittently, C/O FOSTER , Gave PO tylenol. LR @ 125, NS @ tko , ABX as ordered. . in room assisting w ADL. A&O x3 , independent in bed , SBA to toilet . moderate edema, stomach distended , not painful , Tele: SR 80. O2 , 6 L per Oxy mask,
[2016-07-23 04:54] LABS: BASOPHILS % (AUTO) 0.2 % (0-3); EOSINOPHILS % (AUTO) 0 % (0-5); MONOCYTES % (AUTO) 3.9 % (4-12); Mean Corpuscular Hemoglobin 30.3 pg (27.0-35.0); Mean Corpuscular Volume 89.5 fL (81-100); NEUTROPHILS % (AUTO) 89.2 % (40-74); Platelet Count 101 bil/L (150-400)
[2016-07-23] MEDS: Lactated Ringer's 1,000 ML IV SCH (05:32)
[2016-07-23] MEDS: Pantoprazole 4 mg/mL 10 mL Inj IVPUSH SCH ×2 (05:32→16:08)
[2016-07-23] MEDS: Albuterol-Ipratropium 3 mL Inhalation Solution NEB PRN (08:27)
[2016-07-23] MEDS: Timolol-Dorzolamide 10 mL Ophthalmic Solution LEFT_EYE SCH ×2 (08:33→20:51)
--- NOTE | 2016-07-23 10:24 | PCM.PNMED ---
Subjective Date of Service Jul 23, 2016 Subjective Aida Armenta is a 66-year-old female with a past medical history significant for nephrolithiasis, gastritis, obesity, and hypothyroidism who presented to the ED with a week history of right sided abdominal pain, nausea and vomiting. Admitted on 07/20 for pyelonephritis and sepsis likely secondary to infected ureteral stone. Patient is found this morning visiting with family. In mild respiratory distress and requesting a [place]. She endorses a productive cough and states that she has been using the acapella, which seems to be helping with her breathing some. She denies fever, chills, abdominal pain, nausea, vomiting, diarrhea or constipation. reports a restful evening, he is somewhat frustrated that she had to ask for a breathing treatment. Explained to that the breathing treatments are not scheduled but are available as needed. Patient encouraged to ask for breathing treatments and continue to increase activity with physical therapy as tolerated and use acapella. No acute events overnight. Per nursing, patient somewhat distressed with congestion and requested DuoNeb treatments. SpO2 95% on 4L nasal cannula. Exam Vital Signs Vital Sign - Last Date Time Temp Pulse Resp B/P Pulse Ox O2 Delivery O2 Flow Rate FiO2 07/23/16 09:17 82 07/23/16 08:30 Supplement Oxygen 07/23/16 08:30 36.9 32 130/85 97 8.00 Intake and Output 07/22/16 07/22/16 07/23/16 Cumulative From/Thru 15:00 23:00 07:00 07/20/16 00:36 - 07/23/16 05:42 Intake Total 2183 ml 2051 ml 79849 ml Output Total 1650 ml 1450 ml 9850 ml Balance 533 ml 601 ml 8548 ml Intake Oral 50 ml 470 ml 620 ml IV Total 2133 ml 1581 ml 22023 ml Output Urine Total 1650 ml 1450 ml 9850 ml # Bowel Movements 1 1 Exam General: Obese female lying in bed, alert and oriented, appropriately interactive HEENT: Normocephalic, atraumatic. PERRLA, anicteric sclerae. Moist mucosa. Neck: Supple, nontender. No lymphadenopathy or thyromegaly. No JVD Cardiovascular: Tachycardic, regular rhythm with no murmurs, rubs, or gallops appreciated Pulmonary: Lung sounds diminished, overall clear to auscultation bilaterally with shallow breathing noted and mild expiratory wheezing, no use of accessory muscles. Abdomen: Bowel tones present. Soft, diffusely tender to palpation, nondistended. No masses appreciated. Extremities: No clubbing, cyanosis, mild edema upper and lower extremities bilaterally Neurological: Cranial nerves grossly intact. Normal muscle strength, tone, and bulk. Psychiatric: Mood and affect normal IVs and Medications Medications Reviewed: Medications were reviewed in detail Lab and Diagnostics White Blood Count 23.2, Red Blood Count 3.63, Hemoglobin 11.0, Hematocrit 32.5, Mean Corpuscular Volume 89.5, Mean Corpuscular Hemoglobin 30.3, Mean Corpuscular Hemoglobin Concent 33.8, Red Cell Distribution Width 15.4, Platelet Count 101, Neutrophils (%) (Auto) 89.2, Lymphocytes (%) (Auto) 6.1, Monocytes (% ) (Auto) 3.9, Eosinophils (%) (Auto) 0, Basophils (%) (Auto) 0.2 Sodium Level 143, Potassium Level 3.6, Chloride Level 110, Carbon Dioxide Level 22, Blood Urea Nitrogen 12, Creatinine 0.45, Estimat Glomerular Filtration Rate 198, Glucose Level 78, Lactic Acid Level 1.5, Calcium Level 8.3, Total Bilirubin 0.8, Aspartate Amino Transf (AST/SGOT) 36, Alanine Aminotransferase ( ALT/SGPT) 51, Alkaline Phosphatase 150, Total Protein 4.9, Albumin 2.3, Procalcitonin 19.36 Result Diagram: 07/23/16 0405 07/23/16 0405 Microbiology Blood cultures positive for E. coli. Respiratory viral panel positive for metapneumovirus. Influenza negative. X-Rays, CTs and MRIs X-RAY CHEST ONE VIEW, PORTABLE (07/22/16) IMPRESSION: Bibasilar airspace opacities similar to prior examination consistent with atelectasis versus aspiration or pneumonia. Dictated by: Juan Pablo FROST Interpreted: Martine Teixeira MD on 07/22/2016 at 10:27 Transcribed by: NEAL on 07/22/2016 at 10:27 Approved by: Martine Teixeira MD, PhD on 07/22/2016 at 16:12 X-RAY CHEST ONE VIEW, (07/21/16) IMPRESSION: Bibasilar atelectasis versus aspiration or pneumonia. Correlate clinically. Dictated by: Juan Pabol FROST Interpreted: Martine Teixeira MD on 07/21/2016 at 16:29 Transcribed by: NEAL on 07/21/2016 at 16:29 Approved by: Martine Teixeira MD, PhD on 07/21/2016 at 16:45 X-RAY CHEST, TWO VIEWS (07/20/16) IMPRESSION: Mild interstitial prominence similar to prior examination. Dictated and approved by: Juan Pablo FROST Interpreted: Mynor Burrows MD on 2015 at 10:38 PROCEDURE: CT KUB (07/20/16) IMPRESSION: 1. 3 x 5 mm proximal right ureteral stone causing mild right-sided hydronephrosis. 2. 2 mm in diameter right UVJ stone. 3. Multiple bilateral nonobstructing renal cortical stones. Dictated and approved by: Martine Teixeira MD, PhD on 07/20/2016 at 9:53 PROCEDURE: X-RAY CHEST ONE VIEW, PORTABLE (07/20/16) IMPRESSION: 1. Placement right IJ CVL tube tip projected over the right internal jugular vein. 2. Interstitial prominence similar to prior examination. Mild edema or atypical pneumonia cannot be excluded. Correlate clinically. Dictated by: Juan Pablo FROST Interpreted: Mynor Burrows MD on 07/20/2016 at 11:20 Transcribed by: IVAN on 07/20/2016 at 11:20 Approved by: Mynor Burrows M.D. on 07/20/2016 at 17:03 RENAL SONOGRAM IMPRESSION: No hydronephrosis. Dictated and approved by: Lionel Valenzuela M.D. on 07/20/2016 at 19:46 Cardiac Echo Impressions Echocardiogram Report (07/20/16) Interpretation Summary The left ventricle is normal in size, wall thickness, and systolic function without any focal wall motion abnormalities. The ejection fraction is estimated to be 60-65%. There are no focal wall motion abnormalities. The right ventricle is not well visualized. The right ventricle grossly appears normal in size with probable normal systolic function. Assessment of diastolic parameters indicates a relaxation abnormality of the left ventricle, consistent with normal filling pressures. There is no significant valvular heart disease. No other echocardiographic abnormalities seen. No obvious cause for the patients hypotension noted. Reading Physician:05:00 PM Assessment & Plan Aida Armenta is a 66-year-old female with a past medical history significant for nephrolithiasis, gastritis, obesity, and hypothyroidism who presented to the ED with a week history of right sided abdominal pain, nausea and vomiting. CT of abdomen and pelvis without contrast shows right hydronephrosis and proximal hydroureter secondary to a proximal nonobstructing 3 mm stone and a second distal right ureteral stone measuring 2 mm at the UVJ Admitted on 07/20 for pyelonephritis and sepsis likely secondary to infected ureteral stone. 1. Sepsis, present on admission. Improving - Met criteria with elevated temp, hypotension, tachycardia, UTI and bacteremia - Remains of pressors. Lactic acid and white blood cell count continue to trend down - Blood and urine cultures positive for xiong-sensitive E.coli - Continue antibiotics, per Infectious Disease. (antibiotic day 4) - Discontinue IV fluids, encourage oral intake. Diet per speech. 2. Pyelonephritis, present on admission. Active. - Right-sided hydronephrosis on CT KUB - Blood cultures and urine cultures positive for E. coli - Continue IV fluids, antibiotics and trending of infectious markers 3. Acute hypoxic respiratory failure, present on admission. Active. - Patient has history of asthma, albuterol rescue inhaler at home. Not on home O2 - Likely due to metapneumovirus and underlying asthma - Continue supplemental oxygen, Duonebs q6h prn, acapella to help mobilize secretions and antibiotics per ID. 4.Possible pneumonia (aspiration vs community acquired), present on admission. Active - Patient presented after a week long history of abdominal pain, nausea and vomiting. Increasing risk of aspiration. - Respiratory viral panel positive for Metapneumovirus, negative for influenza. - Chest xray shows bibasilar atelectasis versus aspiration or pneumonia. - Procalcitonin & white blood cell count continue to trend down. - Continue trending of infectious markers. Antibiotics, per ID. - Physical therapy to increase activity, as tolerated. 5. Right ureteral calculus, present on admission. Active. - CT KUB showed multiple stones bilaterally and a proximal right ureteral stone causing right-sided hydronephrosis - Urology consulted and patient taken to the OR (07/20) for cystoscopy and right stent placement by Dr. Martinez - Per Urology, outpatient follow up for definitive therapy once sepsis resolves - Renal ultrasound (07/20) showed no free pelvic fluid or hydronephrosis. - Antibiotics, as above. Chronic conditions, present on admission. Ongoing. 1. History of asthma- Duonebs prn q6h 2. Hypothyroidism- Continue home Levothyroxine 3. GERD-40mg IV Protonix q12h. Consider transition to home dosing of oral PPI, Omeprazole when no longer NPO. Acetaminophen-fever/headache/mild/moderate pain Antiemetics, as needed Bowel regimen, as needed. Disposition: Anticipated discharge home with family in 1-2days pending resolution of sepsis and improvement in respiratory status. Pain Evaluation: Adequate Pain Control GI Prophylaxis: Proton Pump Inhibitor VTE Mechanical Devices: Intermittant Pneumatic CD Resuscitation Status: CPR: Attempt Resuscitation Attending Statement The patient was seen and examined together with Dr. Flores on 07/23/2016 and I agree with the history, exam and plan as outlined in the note above. . Em Flores DO Jul 23, 2016 10:24 Heath Mclean MD Aug 05, 2016 17:44
[2016-07-23] MEDS ORDERED: guaiFENesin DM 200-20 mg/10 mL Syrup PO PRN (11:20)
[2016-07-23] MEDS ORDERED: MethylprednisoLONE Sodium Succinate 40 mg/mL Inj IVPUSH ONE (11:25)
[2016-07-23] MEDS: guaiFENesin 600 mg ER12 Tablet PO SCH ×2 (11:54→20:51)
[2016-07-23] MEDS ORDERED: Furosemide 10 mg/mL 4 mL Inj IVPUSH ONE (12:30)
--- NOTE | 2016-07-23 16:32 | NUR ---
PT/O2/urine output The pt was able to ambulate in the room with PT today. She showed improvement since yesterday. Her O2 demands still require 6L oxymask, with sats holding in the low 90's. Her lungs sound moderately improved after an afternoon dose of lasix, yielding 4000mL of urine output.
[2016-07-23] MEDS ORDERED: 0.9% Sodium Chloride 250 ML ONE (20:52)
[2016-07-24] VITALS (9 sets, daily range): BP systolic 105–120; BP diastolic 67–71; PULSE 63–85; RESP 20–28; O2SAT 92–96
[2016-07-24] MEDS: Sodium Chloride LOK Flush 10 mL Syringe IVFLUSH SCH ×3 (00:51→16:41)
[2016-07-24] MEDS: Ampicillin Inj 2,000 MG in 0.9% Sodium Chloride 100 ML IV SCH ×6 (00:52→19:46)
[2016-07-24 03:53] LABS: EOSINOPHILS % (AUTO) 0 % (0-5); Mean Corpuscular Volume 87.9 fL (81-100); Platelet Count 107 bil/L (150-400)
[2016-07-24 04:14] LABS: MONOCYTES % (AUTO) 8 % (4-12); NEUTROPHILS % (AUTO) 84 % (40-74)
[2016-07-24 04:15] LABS: BASOPHILS % (AUTO) 0 % (0-3)
[2016-07-24] MEDS: Pantoprazole 4 mg/mL 10 mL Inj IVPUSH SCH ×2 (04:52→16:40)
--- NOTE | 2016-07-24 05:09 | NUR ---
Respirtory: 02 decreased to 4L oxymask overnight. Sp02 monitored via LAYBOY TENDER with sats in the mid- low 90s. Rodrigues in place. IV abx given as scheduled. family at bedside overnight assisting with ADLs.
[2016-07-24] MEDS: Timolol-Dorzolamide 10 mL Ophthalmic Solution LEFT_EYE SCH ×2 (08:06→19:46)
[2016-07-24] MEDS: guaiFENesin 600 mg ER12 Tablet PO SCH ×2 (08:06→19:46)
--- NOTE | 2016-07-24 10:27 | NUR ---
[facility] Signed
--- NOTE | 2016-07-24 10:27 | NUR ---
Social Work: Continued Discharge Planning D: Pt discussed in morning rounds. Pt is not medically stable for discharge at this time. Pt likely to require 1-2 more days of IV Abx and will be discharged with oral abx, per MD. PT recommendation is currently for SNF however pt is improving each day and recommendations indicate that pt will likely be able to progress towards a discharge home with home health. Pt ambulated 60 feet on 07/23 with PT. Pt has very good social and family support. MD is in agreement with plan for discharge home with HH and signed F2F. DIE FINISHER FORGING met with pt at bedside to review discharge recommendation for home health. DIE FINISHER FORGING explained HH services. Pt is agreeable to this. HH choice list provided. Pt has no preference. DIE FINISHER FORGING to make referral based on vendor calendar. A: Pt who will likely require HH at time of discharge for continued strengthening and mobility function. P: Anticipate pt to discharge home when medically stable; DIE FINISHER FORGING to clarify who designated HH Vendor is and provide referral CHARLY Feliciano Addendum: 07/24/16 at 1539 by SOLA MELGAR Per Vendor Calendar referral made to [facility]; t/c to Toño Ruiz with [facility] to notify of referral; he will follow. Access provided.
[2016-07-24] MEDS ORDERED: Furosemide 10 mg/mL 4 mL Inj IVPUSH ONE (16:25)
--- NOTE | 2016-07-24 17:11 | NUR ---
O2/Lasix/mobility The pt is now on 4L NC with sats holding mid 90's. The pt has experienced an increase in edema and lung "wetness" throughout the shift - another order for lasix was obtained and given at 1600. Pt was able to walk around the room with PT again today, and is a SBA to the bathroom.
[2016-07-25] VITALS (8 sets, daily range): BP systolic 106–123; BP diastolic 63–78; PULSE 68–77; RESP 18–24; O2SAT 91–95
[2016-07-25] MEDS: Sodium Chloride LOK Flush 10 mL Syringe IVFLUSH SCH ×3 (00:02→17:56)
[2016-07-25] MEDS: Ampicillin Inj 2,000 MG in 0.9% Sodium Chloride 100 ML IV SCH ×6 (00:02→20:38)
--- NOTE | 2016-07-25 00:04 | PCM.PNMED ---
Subjective Date of Service Jul 24, 2016 Subjective Aida Armenta is a 66-year-old female with a past medical history significant for nephrolithiasis, gastritis, obesity, and hypothyroidism who presented to [facility] ED with a one week history of right sided abdominal pain, nausea and vomiting and is being treated for septic shock secondary to partially obstructive urolithiasis with secondary pyelonephritis, and metapneumovirus. Hospital day #5. Overnight: There were no acute events. Telemetry overnight shows sinus rhythm, heart rate 70's, without ectopy. She is resting comfortably in bed and is more alert than the prior days. She reports that her breathing is improved. She reports normal appetite. She endorses sore throat and cough productive of yellow sputum. She denies headache , chest pain, shortness of breath, abdominal pain, nausea, vomiting, fever, chills, dysuria, diarrhea or constipation. She is ambulating with a walker and working with physical therapy daily. She was able to ambulate with 3 L of supplemental oxygen and did not desaturate below 93%. . Exam Vital Signs Vital Sign - Last Date Time Temp Pulse Resp B/P Pulse Ox O2 Delivery O2 Flow Rate FiO2 07/24/16 23:09 70 07/24/16 19:45 36.7 20 115/68 94 Nasal Cannula 4.00 Intake and Output 07/23/16 07/23/16 07/24/16 Cumulative From/Thru 15:00 23:00 07:00 07/20/16 00:36 - 07/24/16 04:55 Intake Total 90 ml 829 ml 45842 ml Output Total 4000 ml 1900 ml 97706 ml Balance -3910 ml -1071 ml 3567 ml Intake Oral 90 ml 100 ml 810 ml IV Total 729 ml 86096 ml Output Urine Total 4000 ml 1900 ml 52161 ml # Bowel Movements 1 Exam General: Obese female lying in bed, alert and oriented, appropriately interactive. HEENT: Normocephalic, atraumatic. Pupils equal round reactive to light and accommodation. Extraocular movements intact. Anicteric sclerae. Moist mucosa. Neck: Supple, nontender. No lymphadenopathy or thyromegaly. Cardiovascular: Regular rhythm and rate with no murmurs, rubs, or gallops appreciated Pulmonary: Lung sounds diminished, overall clear to auscultation bilaterally with shallow breathing noted and mild expiratory wheezing, no use of accessory muscles. Abdomen: Soft, bowel sounds present, nontender, nondistended. No masses appreciated. Extremities: No clubbing, cyanosis, or edema. Neurological: Cranial nerves grossly intact. Normal muscle strength, tone, and bulk. Psychiatric: Mood and affect normal. IVs and Medications Medications Reviewed: Medications were reviewed in detail Lab and Diagnostics Item Value Date Time Lactic Acid Level 1.7 mmol/L 07/24/16 034 Calcium Level 8.6 mg/dL 07/24/16 034 Total Bilirubin 0.8 mg/dL 07/24/16 034 Aspartate Amino Transf (AST/SGOT) 27 U/L 07/24/16 034 Alanine Aminotransferase (ALT/SGPT) 41 U/L H 07/24/16 034 Alkaline Phosphatase 192 U/L H 07/24/16 034 Total Protein 5.8 g/dL L 07/24/16 034 Albumin 2.7 g/dL L 07/24/16 034 Procalcitonin 9.15 ng/mL 07/24/16 034 Result Diagram: 07/24/16 03407/24/16 034 Microbiology Blood cultures positive for E. coli. Respiratory viral panel positive for metapneumovirus. Influenza negative. X-Rays, CTs and MRIs X-RAY CHEST ONE VIEW, PORTABLE (07/22/16) IMPRESSION: Bibasilar airspace opacities similar to prior examination consistent with atelectasis versus aspiration or pneumonia. Dictated by: Juan Pablo FROST Interpreted: Martine Teixeira MD on 07/22/2016 at 10:27 Transcribed by: NEAL on 07/22/2016 at 10:27 Approved by: Martine Teixeira MD, PhD on 07/22/2016 at 16:12 X-RAY CHEST ONE VIEW, (07/21/16) IMPRESSION: Bibasilar atelectasis versus aspiration or pneumonia. Correlate clinically. Dictated by: Juan Pablo FROST Interpreted: Martine Teixeira MD on 07/21/2016 at 16:29 Transcribed by: NEAL on 07/21/2016 at 16:29 Approved by: Martine Teixeira MD, PhD on 07/21/2016 at 16:45 X-RAY CHEST, TWO VIEWS (07/20/16) IMPRESSION: Mild interstitial prominence similar to prior examination. Dictated and approved by: Juan Pablo FROST Interpreted: Mynor Burrows MD on 2015 at 10:38 PROCEDURE: CT KUB (07/20/16) IMPRESSION: 1. 3 x 5 mm proximal right ureteral stone causing mild right-sided hydronephrosis. 2. 2 mm in diameter right UVJ stone. 3. Multiple bilateral nonobstructing renal cortical stones. Dictated and approved by: Martine Teixeira MD, PhD on 07/20/2016 at 9:53 PROCEDURE: X-RAY CHEST ONE VIEW, PORTABLE (07/20/16) IMPRESSION: 1. Placement right IJ CVL tube tip projected over the right internal jugular vein. 2. Interstitial prominence similar to prior examination. Mild edema or atypical pneumonia cannot be excluded. Correlate clinically. Dictated by: Juan Pablo FROST Interpreted: Mynor Burrows MD on 07/20/2016 at 11:20 Transcribed by: IVAN on 07/20/2016 at 11:20 Approved by: Mynor Burrows M.D. on 07/20/2016 at 17:03 US RENAL SONOGRAM IMPRESSION: No hydronephrosis. Dictated and approved by: Lionel Valenzuela M.D. on 07/20/2016 at 19:46 Cardiac Echo Impressions Echocardiogram Interpretation Summary: The left ventricle is normal in size, wall thickness, and systolic function without any focal wall motion abnormalities. The ejection fraction is estimated to be 60-65%. There are no focal wall motion abnormalities. The right ventricle is not well visualized. The right ventricle grossly appears normal in size with probable normal systolic function. Assessment of diastolic parameters indicates a relaxation abnormality of the left ventricle, consistent with normal filling pressures. There is no significant valvular heart disease. No other echocardiographic abnormalities seen. No obvious cause for the patients hypotension noted. Reading Physician:05:00 PM Assessment & Plan Aida Armenta is a 66-year-old female with a past medical history significant for nephrolithiasis, gastritis, obesity, and hypothyroidism who presented to [facility] ED with a one week history of right sided abdominal pain, nausea and vomiting and is being treated for septic shock secondary to partially obstructive urolithiasis with secondary pyelonephritis, and metapneumovirus. Hospital day #5. 1. Sepsis, present on admission. Improving - Met criteria with elevated temp, hypotension, tachycardia, UTI and bacteremia - Remains of pressors. Lactic acid and white blood cell count continue to trend down - Blood and urine cultures positive for xiong-sensitive E.coli - Continue antibiotics, per Infectious Disease. (antibiotic day 4) - Discontinue IV fluids, encourage oral intake. Diet per speech. 2. Pyelonephritis, present on admission. Active. - Right-sided hydronephrosis on CT KUB - Blood cultures and urine cultures positive for E. coli - Continue IV fluids, antibiotics and trending of infectious markers 3. Acute hypoxic respiratory failure, present on admission. Active. - Patient has history of asthma, albuterol rescue inhaler at home. Not on home O2 - Likely due to metapneumovirus and underlying asthma - Continue supplemental oxygen, Duonebs q6h prn, acapella to help mobilize secretions and antibiotics per ID. 4.Possible pneumonia (aspiration vs community acquired), present on admission. Active - Patient presented after a week long history of abdominal pain, nausea and vomiting. Increasing risk of aspiration. - Respiratory viral panel positive for Metapneumovirus, negative for influenza. - Chest xray shows bibasilar atelectasis versus aspiration or pneumonia. - Procalcitonin & white blood cell count continue to trend down. - Continue trending of infectious markers. Antibiotics, per ID. - Physical therapy to increase activity, as tolerated. 5. Right ureteral calculus, present on admission. Active. - CT KUB showed multiple stones bilaterally and a proximal right ureteral stone causing right-sided hydronephrosis - Urology consulted and patient taken to the OR (07/20) for cystoscopy and right stent placement by Dr. Martinez - Per Urology, outpatient follow up for definitive therapy once sepsis resolves - Renal ultrasound (07/20) showed no free pelvic fluid or hydronephrosis. - Antibiotics, as above. Chronic conditions, present on admission. Ongoing. 1. History of asthma- Duonebs prn q6h 2. Hypothyroidism- Continue home Levothyroxine 3. GERD-40mg IV Protonix q12h. Consider transition to home dosing of oral PPI, Omeprazole when no longer NPO. Acetaminophen-fever/headache/mild/moderate pain Antiemetics, as needed Bowel regimen, as needed. Disposition: Anticipated discharge home with family in 1-2days pending resolution of sepsis and improvement in respiratory status. GI Prophylaxis: Proton Pump Inhibitor VTE Mechanical Devices: Intermittant Pneumatic CD Resuscitation Status: CPR: Attempt Resuscitation Attending Statement The patient was seen and examined together with Dr. Chowdhury on 07-24-16 and I agree with the history, exam and plan as outlined in the note above. Rachell Chowdhury DO Jul 25, 2016 00:04 Yary Contreras MD Jul 25, 2016 17:04
[2016-07-25] MEDS: Pantoprazole 4 mg/mL 10 mL Inj IVPUSH SCH ×2 (04:00→18:00)
[2016-07-25] MEDS: Sodium Chloride LOK Flush 10 mL Syringe IVFLUSH PRN (04:01)
[2016-07-25] MEDS: Albuterol 2.5 mg/3 mL Inhalation Solution NEB PRN (04:22)
[2016-07-25 04:25] LABS: Mean Corpuscular Hemoglobin 29.6 pg (27.0-35.0); Platelet Count 133 bil/L (150-400)
[2016-07-25 04:41] LABS: BASOPHILS % (AUTO) 0 % (0-3); EOSINOPHILS % (AUTO) 0 % (0-5); MONOCYTES % (AUTO) 11 % (4-12); NEUTROPHILS % (AUTO) 73 % (40-74)
--- NOTE | 2016-07-25 06:43 | NUR ---
Pain / Tele / Respiratory / VS No c/o pain all night. No c/o chest pain, Tele SR in the 70's. O2 @ 4L NC, sats 94-95% per continuous pulse oximetry. Pt received one Neb treatment overnight. VS stable and Afebrile.
[2016-07-25] MEDS ORDERED: Furosemide 10 mg/mL 4 mL Inj IVPUSH ONE ×2 (08:35→13:45)
[2016-07-25] MEDS ORDERED: 0.9% Sodium Chloride 250 ML ONE (08:55)
[2016-07-25] MEDS: guaiFENesin 600 mg ER12 Tablet PO SCH ×2 (09:05→20:38)
[2016-07-25] MEDS: Timolol-Dorzolamide 10 mL Ophthalmic Solution LEFT_EYE SCH ×2 (09:05→20:39)
--- NOTE | 2016-07-25 13:01 | PCM.PNMED ---
Subjective Date of Service Jul 25, 2016 Subjective Aida Armenta is a 66-year-old female with a past medical history significant for nephrolithiasis, gastritis, obesity, and hypothyroidism who presented to the ED with a week history of right sided abdominal pain, nausea and vomiting. Admitted on 07/20 for pyelonephritis and sepsis likely secondary to infected ureteral stone. Patient alert and oriented this morning. Reports shortness of breath, stating that her breathing is about the same and doesn't seem to be getting any better. She denies fever, chills, chest pain, abdominal pain, nausea, vomiting, or diarrhea. No acute events overnight. Per nursing, telemetry SR in the 70's. SpO2 94-95% on 4L nasal cannula. Pt received one Neb treatment overnight. Exam Vital Signs Vital Sign - Last Date Time Temp Pulse Resp B/P Pulse Ox O2 Delivery O2 Flow Rate FiO2 07/25/16 04:22 71 20 92 Nasal Cannula 4.00 07/25/16 04:00 36.8 121/78 Intake and Output 07/24/16 07/24/16 07/25/16 Cumulative From/Thru 15:00 23:00 07:00 07/20/16 00:36 - 07/25/16 06:22 Intake Total 882 ml 1097 ml 22483 ml Output Total 1450 ml 2100 ml 57110 ml Balance -568 ml -1003 ml 1996 ml Intake Oral 510 ml 450 ml 1770 ml IV Total 372 ml 647 ml 23662 ml Output Urine Total 1450 ml 2100 ml 67930 ml # Bowel Movements 1 2 Exam General: Obese female lying in bed, alert and oriented, appropriately interactive HEENT: Normocephalic, atraumatic. PERRLA, anicteric sclerae. Moist mucosa. Neck: Supple, nontender. No lymphadenopathy or thyromegaly. No JVD Cardiovascular: Regular rate and rhythm with no murmurs, rubs, or gallops appreciated Pulmonary: Lung sounds diminished, mild expiratory wheezing, no use of accessory muscles. Abdomen: Bowel tones present. Soft, diffusely tender to palpation, nondistended. No masses appreciated. Extremities: No clubbing, cyanosis, mild edema upper and lower extremities bilaterally Neurological: Cranial nerves grossly intact. Normal muscle strength, tone, and bulk. Psychiatric: Mood and affect normal IVs and Medications Medications Reviewed: Medications were reviewed in detail Lab and Diagnostics White Blood Count 16.5, Red Blood Count 4.19, Hemoglobin 12.4, Hematocrit 37.3, Mean Corpuscular Volume 89.0, Mean Corpuscular Hemoglobin 29.6, Mean Corpuscular Hemoglobin Concent 33.2, Red Cell Distribution Width 14.9, Platelet Count 133, Neutrophils (%) (Auto) 73, Lymphocytes (%) (Auto) 14, Monocytes (%) ( Auto) 11, Eosinophils (%) (Auto) 0, Basophils (%) (Auto) 0, Band Neutrophils % 2 , Sodium Level 143, Potassium Level 3.6, Chloride Level 108, Carbon Dioxide Level 25, Blood Urea Nitrogen 21, Creatinine 0.50, Estimat Glomerular Filtration Rate 176, Glucose Level 103, Calcium Level 8.5, Total Bilirubin 0.6, Aspartate Amino Transf (AST/SGOT) 29, Alanine Aminotransferase (ALT/SGPT) 36, Alkaline Phosphatase 158, Total Protein 5.6, Albumin 2.6 Result Diagram: 07/25/1641107/25/16411 Microbiology Blood cultures positive for E. coli. Respiratory viral panel positive for metapneumovirus. Influenza negative. X-Rays, CTs and MRIs X-RAY CHEST ONE VIEW, PORTABLE (07/22/16) IMPRESSION: Bibasilar airspace opacities similar to prior examination consistent with atelectasis versus aspiration or pneumonia. Dictated by: Juan Pablo FROST Interpreted: Martine Teixeira MD on 07/22/2016 at 10:27 Transcribed by: NEAL on 07/22/2016 at 10:27 Approved by: Martine Teixeira MD, PhD on 07/22/2016 at 16:12 X-RAY CHEST ONE VIEW, (07/21/16) IMPRESSION: Bibasilar atelectasis versus aspiration or pneumonia. Correlate clinically. Dictated by: Juan Pablo FROST Interpreted: Martine Teixeira MD on 07/21/2016 at 16:29 Transcribed by: NEAL on 07/21/2016 at 16:29 Approved by: Martine Teixeira MD, PhD on 07/21/2016 at 16:45 X-RAY CHEST, TWO VIEWS (07/20/16) IMPRESSION: Mild interstitial prominence similar to prior examination. Dictated and approved by: Juan Pablo FROST Interpreted: Mynor Burrows MD on 2015 at 10:38 PROCEDURE: CT KUB (07/20/16) IMPRESSION: 1. 3 x 5 mm proximal right ureteral stone causing mild right-sided hydronephrosis. 2. 2 mm in diameter right UVJ stone. 3. Multiple bilateral nonobstructing renal cortical stones. Dictated and approved by: Martine Teixeira MD, PhD on 07/20/2016 at 9:53 PROCEDURE: X-RAY CHEST ONE VIEW, PORTABLE (07/20/16) IMPRESSION: 1. Placement right IJ CVL tube tip projected over the right internal jugular vein. 2. Interstitial prominence similar to prior examination. Mild edema or atypical pneumonia cannot be excluded. Correlate clinically. Dictated by: Juan Pablo Little RRA Interpreted: Mynor Burrows MD on 07/20/2016 at 11:20 Transcribed by: IVAN on 07/20/2016 at 11:20 Approved by: Mynor Burrows M.D. on 07/20/2016 at 17:03 RENAL SONOGRAM IMPRESSION: No hydronephrosis. Dictated and approved by: Lionel Valenzuela M.D. on 07/20/2016 at 19:46 Cardiac Echo Impressions Echocardiogram Interpretation Summary: The left ventricle is normal in size, wall thickness, and systolic function without any focal wall motion abnormalities. The ejection fraction is estimated to be 60-65%. There are no focal wall motion abnormalities. The right ventricle is not well visualized. The right ventricle grossly appears normal in size with probable normal systolic function. Assessment of diastolic parameters indicates a relaxation abnormality of the left ventricle, consistent with normal filling pressures. There is no significant valvular heart disease. No other echocardiographic abnormalities seen. No obvious cause for the patients hypotension noted. Reading Physician:05:00 PM Assessment & Plan Aida Armenta is a 66-year-old female with a past medical history significant for nephrolithiasis, gastritis, obesity, and hypothyroidism who presented to the ED with a week history of right sided abdominal pain, nausea and vomiting. CT of abdomen and pelvis without contrast shows right hydronephrosis and proximal hydroureter secondary to a proximal nonobstructing 3 mm stone and a second distal right ureteral stone measuring 2 mm at the UVJ Admitted on 07/20 for pyelonephritis and sepsis likely secondary to infected ureteral stone. 1. Sepsis, present on admission. Resolved. - Met criteria on admission with an temp of 39.4, hypotension (82/55), tachycardia (HR 108), UTI and bacteremia - Lactic acid and white blood cell count continue to trend down - Blood and urine cultures positive for xiong-sensitive E.coli - Continue antibiotics, per Infectious Disease. (antibiotic day 6) - Encourage oral intake. Diet per speech. 2. Pyelonephritis, present on admission. Active. - Right-sided hydronephrosis on CT KUB - Blood cultures and urine cultures positive for E. coli - Continue antibiotics, per ID and trending of infectious markers 3. Acute hypoxic respiratory failure, present on admission. Active. - Patient has history of asthma, albuterol rescue inhaler at home. Not on home O2 - Likely due to metapneumovirus and underlying asthma - Continue supplemental oxygen, Duonebs q6h prn, acapella to help mobilize secretions and antibiotics per ID. 4.Possible pneumonia (aspiration vs community acquired), present on admission. Active - Respiratory viral panel positive for Metapneumovirus, negative for influenza. - Chest xray shows bibasilar atelectasis versus aspiration or pneumonia. - Procalcitonin & white blood cell count continue to trend down. - Continue trending of infectious markers. Antibiotics, per ID. - Physical therapy to increase activity, as tolerated. 5. Right ureteral calculus, present on admission. Active. - CT KUB showed multiple stones bilaterally and a proximal right ureteral stone causing right-sided hydronephrosis - Urology consulted and patient taken to the OR (07/20) for cystoscopy and right stent placement by Dr. Martinez - Per Urology, outpatient follow up for definitive therapy once sepsis resolves - Renal ultrasound (07/20) showed no free pelvic fluid or hydronephrosis. - Antibiotics, as above. Chronic conditions, present on admission. Ongoing. 1. History of asthma- Duonebs prn q6h 2. Hypothyroidism- Continue home Levothyroxine 3. GERD-40mg IV Protonix q12h. Consider transition to home dosing of oral PPI, Omeprazole when no longer NPO. Acetaminophen-fever/headache/mild/moderate pain Antiemetics, as needed Bowel regimen, as needed. Disposition: Anticipated discharge home with family in 1-2days pending resolution of sepsis and improvement in respiratory status. Pain Evaluation: Adequate Pain Control GI Prophylaxis: Proton Pump Inhibitor VTE Mechanical Devices: Intermittant Pneumatic CD Resuscitation Status: CPR: Attempt Resuscitation Attending Statement The patient was seen and examined together with Dr. Flores on 07-25-16 and I agree with the history, exam and plan as outlined in the note above. Em Flores DO Jul 25, 2016 08:36 Yary Contreras MD Jul 27, 2016 16:46
--- NOTE | 2016-07-25 16:54 | NUR ---
Resp/Mouth sores Pt SpO2 low to mid 90s on 2L NC. pt tolerating decrease in O2. Pt complaining of pain in mouth while eating, noted white patches on tongue when assessed. MD made aware, new order for 200mg Diflucan and Nycostatin susp. Awaiting meds from pharmacy will administer when meds available. Ongoing care.
[2016-07-25] MEDS: Heparin 5,000 Unit/mL Inj SUBQ SCH (17:56)
[2016-07-25] MEDS: Nystatin 100,000 Unit/mL 5 mL Suspension PO SCH ×2 (18:33→20:39)
--- NOTE | 2016-07-25 18:37 | PROG NOTE ---
[address] [address] PROGRESS NOTE PATIENT: CARMEN CARLTON : 1950 MR#: [id number] ADMIT: 07/20/2016 JOB ID: [id number] DATE: 07/25/2016 REASON FOR FOLLOWUP: Bacteremic E. coli pyelonephritis with associated human metapneumovirus and respiratory tract infection. INTERVAL HISTORY: Over the weekend, the patient has improved in terms of her fevers, chills and generalized symptoms, but she continues to be quite short of breath with a productive cough. As noted, fevers and chills seem to have resolved. At this point, she has no flank pain, no urgency, frequency, dysuria though she does have some anterior abdominal pain in association with her shortness of breath. PHYSICAL EXAMINATION: Reveals an afebrile woman. She has been afebrile now for five days. Temp 36.4, pulse 71, respiratory rate 20, blood pressure 121/73, saturating well but she is requiring 3 L still nasal prongs and she did not use supplemental oxygen prior to admission. The patient is awake, alert, a little bit apprehensive perhaps. Oral cavity negative. Nasal oxygen in use. Lungs with diffuse bilateral wheezing and scattered crackles. Cardiac tones: Mildly tachycardic, otherwise negative. Abdomen: Slightly distended. Minimal epigastric tenderness. No flank tenderness remains. LABORATORIES: Include white count which has declined from 32,000 to 16. Platelet count has risen to 133,000 and she now has completely normal diff. Creatinine is 0.5. LFTs basically normal except for an ALT at 36. Procalcitonin has gone down by 50% a day having started off at 70 four days ago. It is now down to 5. Micro studies include respiratory viral panel that showed by PCR human metapneumovirus. Blood in urine grew E. coli which was xiong susceptible. Chest x-ray was last done three days ago and shows atelectasis versus pneumonia. IMPRESSION: This is a complex case of a woman who seems to have two separate significant problems at once. Her bacteremic Escherichia coli infection is clearly improving on her IV ampicillin therapy. On the other hand, the patient remains quite short of breath with bronchospasm which is undoubtedly triggered by the human metapneumovirus infection. That problem seems to be much slower to resolve which is not surprising as these human metapneumovirus or RSV infections can linger for weeks. RECOMMENDATIONS: 1. Will continue with ampicillin 2 g q.4 h. via PICC. 2. As the patient improves and becomes ready for discharge, we can transition to oral therapy for the bacteremic E. coli infection. 3. Unfortunately, the patient is clearly not ready to go at this point because her respiratory function is not that good given her ongoing wheezing and shortness of breath. 4. Will continue to follow with you.
--- NOTE | 2016-07-25 23:30 | NUR ---
transfer Pt was transferred to 3028 from 2022 around 22:00 accompanied by her daughter. Pt is A&Ox3, denies pain, discomfort or SOB; on 2L O2. Pt and daughter are reoriented of room; they verbalized understanding.
[2016-07-26] VITALS (13 sets, daily range): BP systolic 99–122; BP diastolic 64–80; PULSE 65–79; RESP 18–22; O2SAT 92–96
[2016-07-26] MEDS: Heparin 5,000 Unit/mL Inj SUBQ SCH ×3 (00:26→16:41)
[2016-07-26] MEDS: Sodium Chloride LOK Flush 10 mL Syringe IVFLUSH SCH ×3 (00:26→16:41)
[2016-07-26] MEDS: Ampicillin Inj 2,000 MG in 0.9% Sodium Chloride 100 ML IV SCH ×6 (00:26→20:46)
[2016-07-26] MEDS: Albuterol 2.5 mg/3 mL Inhalation Solution NEB PRN ×2 (02:01→21:23)
[2016-07-26] MEDS ORDERED: HYDROcodone-APAP 5-325 mg Tablet PO ONE (02:55)
[2016-07-26] MEDS: Pantoprazole 4 mg/mL 10 mL Inj IVPUSH SCH ×2 (05:40→16:40)
[2016-07-26 06:20] LABS: Mean Corpuscular Hemoglobin 30.1 pg (27.0-35.0); Mean Corpuscular Volume 87.9 fL (81-100); Platelet Count 153 bil/L (150-400)
[2016-07-26 06:48] LABS: MONOCYTES % (AUTO) 11 % (4-12); NEUTROPHILS % (AUTO) 71 % (40-74)
[2016-07-26 06:49] LABS: BASOPHILS % (AUTO) 0 % (0-3); EOSINOPHILS % (AUTO) 1 % (0-5)
--- NOTE | 2016-07-26 07:45 | NUR ---
chest pain Pt called this RN for 8-10/10 sharp pain to her left chest. Pt reported that it is worse when she takes deep breath. EKG was done-NSR. RT gave a neb tx with good relief. pt is able to go back to sleep. Dr. Meneses was notified and rec'd an order for OT dose of Vicodin. Pt agreed to take Vicodin when she woke up. Pt sleeping at this time w/o s/s of discomfort. SpO2 in mid 90s on 2L O2; 90%-91% on RA w/o respiratory distress. Afebrile this shift.
[2016-07-26] MEDS ORDERED: predniSONE 20 mg Tablet PO ONE ×2 (08:30→10:35)
[2016-07-26] MEDS: Timolol-Dorzolamide 10 mL Ophthalmic Solution LEFT_EYE SCH ×2 (09:24→20:48)
[2016-07-26] MEDS: guaiFENesin 600 mg ER12 Tablet PO SCH ×2 (09:25→20:50)
[2016-07-26] MEDS: Nystatin 100,000 Unit/mL 5 mL Suspension PO SCH ×4 (09:25→20:52)
[2016-07-26] MEDS: Albuterol-Ipratropium 3 mL Inhalation Solution NEB PRN (10:45)
--- NOTE | 2016-07-26 11:41 | NUR ---
NUTRITION FOLLOW-UP: ASSESS: 66 YO female admitted to CCU with sepsis, metapneumovirus, hydronephrosis and R ureteral stone; s/p cystoscopy and urethral stent placement 07/20. Anticipate discharge home with family next day or so pending resolution of sepsis and improvement in respiratory status. Her PO intake has been poor, bites - 25% trays, likely due to poor respiratory status. Code status: full. PMHX: GERD, hypothyroid, gastritis, kidney stones. LABS:Reviewed. Cr 0.42, Ca 8.0, ALT 40, Alb 2.7. MEDS:Reviewed. GI: BM x 1 today. SKIN: Rickey 14. WT:88.1 kg, BMI 35.0 kg/m2, IBW 50kg, admit wt 83.4kg DIET: Pureed, nectar thick liquids. PO intake bites - 25% trays. EST. NEEDS: BMI Kcals: 1660-1830kcal/day (20-22kcal/kg) Pro: 60-75g/day (1.2-1.5g/kg IBW) Fluids: 2000-2500ml/day (25-30cc/kg) NUTRITION DIAGNOSIS: 1) Inadequate oral intake related to decreased ability to consume sufficient energy as evidenced by current NPO status - PERSISTS. NUTRITION INTERVENTION: 1) Advance diet per ST recommendation 2) Will add nectar thick Ensure to lunch and dinner trays. MONITOR / EVAL: Diet advance / tolerance, PO intake, GI, labs, wt, POC, nutrition status. Will continue to monitor per high nutrition risk guidelines
--- NOTE | 2016-07-26 14:17 | NUR ---
Social Work-readiness for discharge: Data:EMR reviewed. Pt is on day 6 of hospitalization for Hydronephrosis per H&P. Pt is not medically stable for discharge today, may be in the next day or two. Pt resides at home with her where she remains independent with basic ADLS. PT has cleared pt for home with . ST continues to be involved. Referral made to [facility] For RN,OT, PT ,and ST, access given. F2F in folder. SW will continue to follow. Assessment:Pt who would benefit from HH. Plan:Pt to discharge home when medically stable via POV. Referral made to [facility] for RN,Pt,OT, and ST access given. F2F in folder. SW will continue to follow. CHARLY Cardoza
--- NOTE | 2016-07-26 15:38 | PROG NOTE ---
[address] [address] PROGRESS NOTE PATIENT: CARMEN CARLTON : 1950 MR#: [id number] ADMIT: 07/20/2016 JOB ID: [id number] DATE: 07/26/2016 INFECTIOUS DISEASE FOLLOWUP NOTE: REASON FOR FOLLOWUP: Bacteremic E. coli infection with associated and apparently unrelated human metapneumovirus pulmonary infection. INTERVAL HISTORY: Overnight, the patient reports that she is gradually feeling better. No fevers. No chills. She continues to be short of breath but that is improving a bit perhaps. No nausea or vomiting. She continues to have constipation. PHYSICAL EXAMINATION: Reveals a consistently afebrile woman. She has been afebrile since admission really on the when she had some persistent high spiking fevers. Since then, afebrile, now 36.8, pulse 65, respiratory rate 20, blood pressure 99/67. She is in no acute distress. She is sitting up at the side of the bed now preparing to go to the bathroom and is obviously working to breathe and is less short of breath than on prior visits. Oral cavity unremarkable. Lungs with diffuse crackles in the lower lung prieto and occasional wheezing. Cardiac tones: Regular rate and rhythm on cardiac exam. Abdomen benign. Rodrigues catheter has been removed. LABORATORIES: Include a white count, which is coming down nicely from 32,000, down to 13. Platelet count has also rallied from a low of 99,000 up to 153,000. The differential white count basically normal. Creatinine 0.42. LFT notable for an ALT of 40, otherwise negative. Procalcitonin is continuing to drop. It is down to 2.36 from a peak basically of 70 just six days ago. Urinalysis, 6-10 white cells on admission. That culture grew an E coli, as did her blood cultures. These E. coli isolates were ampicillin susceptible. A respiratory viral panel showed metapneumovirus. IMPRESSION: This patient seems to be turning the corner and gradually improving. RECOMMENDATIONS: 1. The patient is now on day five of ampicillin, day seven of overall antibiotics. I would continue with antibiotics for about three more days through July 29 and then terminate antibiotics, assuming she continues to have good clinical improvement. 2. We could continue with IV ampicillin while she is here. If the patient is ready to be discharged, the antibiotics could be finished with a couple of days of oral ciprofloxacin or perhaps high-dose amoxicillin. 3. There is no specific therapy for the human metapneumovirus but it does seem to be improving. Will continue to follow this case with you. Thank you very much.
--- NOTE | 2016-07-26 21:46 | PCM.PNMED ---
Subjective Date of Service Jul 26, 2016 Subjective Patient states she is feeling a little better however she still has a significant amount wheezing, shortness of breath, cough and weakness. Exam Vital Signs Vital Sign - Last Date Time Temp Pulse Resp B/P Pulse Ox O2 Delivery O2 Flow Rate FiO2 07/26/16 21:24 75 94 Room Air 07/26/16 21:05 36.5 20 106/64 2.00 Intake and Output 07/25/16 07/25/16 07/26/16 Cumulative From/Thru 15:00 23:00 07:00 07/20/16 00:36 - 07/26/16 06:23 Intake Total 1451 ml 100 ml 78934 ml Output Total 2650 ml 1100 ml 50842 ml Balance -1199 ml -1000 ml -203 ml Intake Oral 760 ml 100 ml 2630 ml IV Total 691 ml 44183 ml Output Urine Total 2650 ml 1100 ml 07742 ml # Bowel Movements 2 Exam General: Patient is unable to comfortably lie flat and is sitting up in bed at about 30-45. HEENT: Head is atraumatic normocephalic. Eyes: Pupils are equally round and reactive to light and accommodation. Extraocular muscles are intact. Sclera are white anicteric. Subconjunctival mucosa is pink. Ears and nose are unremarkable. Oropharynx: There is no mucosal lesions, there is no thrush, there is no pharyngitis. Neck: Is supple, there are no nodes, or masses, or tenderness. Chest: Significant for diffuse scattered wheezing and basilar rales. She also has few scattered rhonchi. Heart: Rate, rhythm is regular. There is no murmur, rub or gallop. Abdomen: Good bowel sounds are present. Abdomen is soft, nontender, no organomegaly or masses were appreciated. Extremities: Are symmetrical and well perfused. There is no edema, there is no cellulitis, no rash. Neurologic: There are no focal neurological deficits. Cranial nerves II through XII are intact. There are no sensory or motor deficits. Psychiatric: Patients mood is calm and shows no sign of agitation. Genital: Deferred Rectal: Deferred Lab and Diagnostics Result Diagram: 07/26/16 0603 07/26/16 0603 Microbiology Blood cultures positive for E. coli. Respiratory viral panel positive for metapneumovirus. Influenza negative. X-Rays, CTs and MRIs X-RAY CHEST ONE VIEW, PORTABLE (07/22/16) IMPRESSION: Bibasilar airspace opacities similar to prior examination consistent with atelectasis versus aspiration or pneumonia. Dictated by: Juan Pablo FROST Interpreted: Martine Teixeira MD on 07/22/2016 at 10:27 Transcribed by: NAEL on 07/22/2016 at 10:27 Approved by: Martine Teixeira MD, PhD on 07/22/2016 at 16:12 X-RAY CHEST ONE VIEW, (07/21/16) IMPRESSION: Bibasilar atelectasis versus aspiration or pneumonia. Correlate clinically. Dictated by: Juan Pablo FROST Interpreted: Martine Teixeira MD on 07/21/2016 at 16:29 Transcribed by: NEAL on 07/21/2016 at 16:29 Approved by: Martine Teixeira MD, PhD on 07/21/2016 at 16:45 X-RAY CHEST, TWO VIEWS (07/20/16) IMPRESSION: Mild interstitial prominence similar to prior examination. Dictated and approved by: Juan Pablo FROST Interpreted: Mynor Burrows MD on 2015 at 10:38 PROCEDURE: CT KUB (07/20/16) IMPRESSION: 1. 3 x 5 mm proximal right ureteral stone causing mild right-sided hydronephrosis. 2. 2 mm in diameter right UVJ stone. 3. Multiple bilateral nonobstructing renal cortical stones. Dictated and approved by: Martine Teixeira MD, PhD on 07/20/2016 at 9:53 PROCEDURE: X-RAY CHEST ONE VIEW, PORTABLE (07/20/16) IMPRESSION: 1. Placement right IJ CVL tube tip projected over the right internal jugular vein. 2. Interstitial prominence similar to prior examination. Mild edema or atypical pneumonia cannot be excluded. Correlate clinically. Dictated by: Juan Pablo FROST Interpreted: Mynor Burrows MD on 07/20/2016 at 11:20 Transcribed by: IVAN on 07/20/2016 at 11:20 Approved by: Mynor Burrows M.D. on 07/20/2016 at 17:03 US RENAL SONOGRAM IMPRESSION: No hydronephrosis. Dictated and approved by: Lionel Valenzuela M.D. on 07/20/2016 at 19:46 Cardiac Echo Impressions Echocardiogram Interpretation Summary: The left ventricle is normal in size, wall thickness, and systolic function without any focal wall motion abnormalities. The ejection fraction is estimated to be 60-65%. There are no focal wall motion abnormalities. The right ventricle is not well visualized. The right ventricle grossly appears normal in size with probable normal systolic function. Assessment of diastolic parameters indicates a relaxation abnormality of the left ventricle, consistent with normal filling pressures. There is no significant valvular heart disease. No other echocardiographic abnormalities seen. No obvious cause for the patients hypotension noted. Reading Physician:05:00 PM Assessment & Plan Aida Armenta is a 66-year-old female with a past medical history significant for nephrolithiasis, gastritis, obesity, and hypothyroidism who presented to the ED with a week history of right sided abdominal pain, nausea and vomiting. CT of abdomen and pelvis without contrast shows right hydronephrosis and proximal hydroureter secondary to a proximal nonobstructing 3 mm stone and a second distal right ureteral stone measuring 2 mm at the UVJ Admitted on 07/20 for pyelonephritis and sepsis likely secondary to infected ureteral stone. 1. Sepsis, present on admission. Resolved. - Met criteria on admission with an temp of 39.4, hypotension (82/55), tachycardia (HR 108), UTI and bacteremia - Lactic acid and white blood cell count continue to trend down - Blood and urine cultures positive for xiong-sensitive E.coli - Continue antibiotics with ampicillin 2 g IV every 4 hours, per Infectious Disease. (antibiotic day 7) - Encourage oral intake. Diet per speech. 2. Pyelonephritis, present on admission. Active. - Right-sided hydronephrosis on CT KUB - Blood cultures and urine cultures positive for E. coli - Continue antibiotics, per ID and trending of infectious markers 3. Acute hypoxic respiratory failure, present on admission. Active. - Patient has history of asthma, albuterol rescue inhaler at home. Not on home O2 - Likely due to metapneumovirus and underlying asthma - Continue supplemental oxygen, Duonebs q6h prn, acapella to help mobilize secretions and antibiotics per ID. -Continue tapering doses of prednisone. Will start 30 mg by mouth daily tomorrow 4.Possible pneumonia (aspiration vs community acquired), present on admission. Active - Respiratory viral panel positive for Metapneumovirus, negative for influenza. - Chest xray shows bibasilar atelectasis versus aspiration or pneumonia. - Procalcitonin & white blood cell count continue to trend down. - Continue trending of infectious markers. Antibiotics, per ID. - Physical therapy to increase activity, as tolerated. 5. Right ureteral calculus, present on admission. Active. - CT KUB showed multiple stones bilaterally and a proximal right ureteral stone causing right-sided hydronephrosis - Urology consulted and patient taken to the OR (07/20) for cystoscopy and right stent placement by Dr. Martinez - Per Urology, outpatient follow up for definitive therapy once sepsis resolves - Renal ultrasound (07/20) showed no free pelvic fluid or hydronephrosis. - Antibiotics, as above. Chronic conditions, present on admission. Ongoing. 1. History of asthma- Duonebs prn q6h and tapering doses of prednisone. 2. Hypothyroidism- Continue home Levothyroxine 3. GERD-40mg IV Protonix q12h. Consider transition to home dosing of oral PPI, Omeprazole when no longer NPO. Acetaminophen-fever/headache/mild/moderate pain Antiemetics, as needed Bowel regimen, as needed. Disposition: Anticipated discharge home with family in 2-3 days pending resolution of sepsis and improvement in respiratory status. Pain Evaluation: Adequate Pain Control GI Prophylaxis: Proton Pump Inhibitor VTE Mechanical Devices: Intermittant Pneumatic CD Resuscitation Status: CPR: Attempt Resuscitation Vamsi Hayden MD Jul 26, 2016 21:45
[2016-07-27] VITALS (8 sets, daily range): BP systolic 109–132; BP diastolic 64–72; PULSE 63–80; RESP 18–21; O2SAT 95–98
[2016-07-27] MEDS: Ampicillin Inj 2,000 MG in 0.9% Sodium Chloride 100 ML IV SCH ×6 (00:34→20:24)
[2016-07-27] MEDS: Sodium Chloride LOK Flush 10 mL Syringe IVFLUSH SCH ×3 (00:36→16:01)
[2016-07-27] MEDS: Heparin 5,000 Unit/mL Inj SUBQ SCH ×3 (00:37→16:01)
[2016-07-27] MEDS: Pantoprazole 4 mg/mL 10 mL Inj IVPUSH SCH ×2 (05:04→18:02)
[2016-07-27] MEDS: Sodium Chloride LOK Flush 10 mL Syringe IVFLUSH PRN (05:05)
[2016-07-27 05:29] LABS: BASOPHILS % (AUTO) 0.6 % (0-3); EOSINOPHILS % (AUTO) 0.5 % (0-5); MONOCYTES % (AUTO) 9.2 % (4-12); Mean Corpuscular Hemoglobin 29.9 pg (27.0-35.0); Mean Corpuscular Volume 88.1 fL (81-100); NEUTROPHILS % (AUTO) 66.4 % (40-74); Platelet Count 195 bil/L (150-400)
--- NOTE | 2016-07-27 05:32 | NUR ---
Ambulation: Pt has ambulated twice around the unit this shift, prior to bed and this morning. CPOX on pt overnight, sats mid 90s. Pt has been on RA to 2L NC; more so on RA this shift than on oxygen.
--- NOTE | 2016-07-27 05:37 | NUR ---
Weight discrepancy: Pt has been weighed with the bed scale on the 2nd floor prior to this morning. Pt is now ambulating and was weighed on the standing scale. Previous bed weights noted to be about 88 kgs, standing scale weight this morning is 81.7 kgs.
[2016-07-27 06:07] LABS: ERYTHROCYTE SEDIMENTATION RATE 19 mm/hr (0-40)
[2016-07-27 06:11] LABS: Phosphorus 2.6 mg/dL (2.5-4.9)
[2016-07-27] MEDS: Nystatin 100,000 Unit/mL 5 mL Suspension PO SCH ×4 (07:33→22:13)
[2016-07-27] MEDS: predniSONE 20 mg Tablet PO SCH (07:34)
[2016-07-27] MEDS: Timolol-Dorzolamide 10 mL Ophthalmic Solution LEFT_EYE SCH ×2 (07:34→20:25)
[2016-07-27] MEDS: guaiFENesin 600 mg ER12 Tablet PO SCH ×2 (07:34→20:25)
[2016-07-27] MEDS: Albuterol-Ipratropium 3 mL Inhalation Solution NEB PRN (09:15)
--- NOTE | 2016-07-27 10:13 | DRSVH ---
PROCEDURE: X-RAY CHEST, TWO VIEWS ([id number]) INDICATIONS: 66 year-old female with shortness of breath. TECHNIQUE: 2 views of the chest were acquired. COMPARISON: [facility], CR, XR CHEST 1VW (PORTABLE), 07/22/2016, 5:21. [facility], CR, XR CHEST 1VW (PORTABLE), 07/21/2016, 11:02. [facility], CR, XR CHEST 1VW (PO RTABLE), 07/20/2016, 3:34. FINDINGS: Surgical changes and devices: Right PICC is again noted. Lungs and pleura: No pleural effusions or pneumothorax. Mild bibasilar airspace opacities persist. Mediastinum: Mediastinal contours are normal. Heart size is normal. Bones and chest wall: No suspicious bony abnormalities. Soft tissues appear unremarkable. IMPRESSION: Persistent bibasilar airspace opacities, consistent with bronchopneumonia. Dictated by: Easton Clemens M.D. on 07/27/2016 at 10:12 Approved by: Easton Clemens M.D. on 07/27/2016 at 10:12
--- NOTE | 2016-07-27 10:53 | PROG NOTE ---
[address] [address] PROGRESS NOTE PATIENT: CARMEN CARLTON : 1950 MR#: [id number] ADMIT: 07/20/2016 JOB ID: [id number] DATE: 07/27/2016 INFECTIOUS DISEASE FOLLOWUP NOTE: REASON FOR FOLLOWUP: Bacteremic E. coli pyelonephritis with human metapneumovirus respiratory tract infection. INTERVAL HISTORY: Overnight, the patient has been free of fevers or chills. She continues to have shortness of breath, as well as a dry cough. Her flank pain has essentially resolved, and her Rodrigues has been pulled but she is able to void spontaneously. PHYSICAL EXAMINATION: Reveals an obese woman who still appears moderately short of breath. Temperature 36.4. She has been afebrile now for almost a week. Pulse 70, respiratory rate 18, blood pressure 120/64. She is saturating 96% but requiring 2 L. Oral cavity is notable for the presence of what appeared to be herpetic lesions on the lower lip. The patient reports she has a distant history of cold sores and that these lesions are quite painful. Within the mouth there is no thrush or hairy leukoplakia. The lungs are notable for bilateral rales and rhonchi. Abdomen is soft, basically nontender. Flank pain has resolved. Rodrigues catheter is out. LABORATORIES: Include white count 13,000, which is probably normal, as she is still on steroids. She has a normal differential. Creatinine 0.46. ALT 35. Hep C negative. QuantiFERON Gold is indeterminate. Micro studies include the respiratory viral PCR panel, which is positive for human metapneumovirus and the bacteremic E. coli infection, which was susceptible to ampicillin and all tested agents. IMAGING: The chest x-ray done just about an hour ago shows persistent bilateral airspace opacities. IMPRESSION: This is a complicated and somewhat unusual case of a woman who presents with bacteremic Escherichia coli pyelonephritis, as well as apparently simultaneous development of a human metapneumovirus respiratory tract infection. At this point, her bacteremic urinary tract infection is rapidly improving, as her white count and procalcitonin are falling and the patient's flank pain has resolved. Meanwhile, she continues to be very short of breath with the human metapneumovirus and appears to have developed oral herpes, likely due to the steroids and the stress of the sepsis. RECOMMENDATIONS: 1. Will do an oral herpes culture. 2. The patient will be started on Valtrex. 3. Continue ampicillin. 4. Will continue to follow this patient closely with you.
--- NOTE | 2016-07-27 13:21 | NUR ---
Social Work: Readiness for d/c Data: Pt is on day 7 of hospitalization. [employer]A FIELD MANAGER met with pt and daughter at bedside regarding the possible need for a walker. AREA FIELD MANAGER gave them prices that [facility] stated which were $22/month for a FWW and at least $200 to purchase a 4WW. Pt and daughter declined a walker from [employer] FI[employer] MANAGER. states pt will likely d/c in a couple of days. AREA FIELD MANAGER will continue to follow. Assessment: Pt who is independent at baseline. Plan: Pt will d/c home via POV when medically stable of Cathy MARTINEZ RN/PT/OT/ST. Pt declining walker. states pt will likely d/c in a couple of days. AREA FIELD MANAGER will continue to follow. CHARLY Patterson
--- NOTE | 2016-07-27 15:54 | PCM.PNMED ---
Subjective Date of Service Jul 27, 2016 Subjective pt still has persistent cough, productive with thick, yellowish sputum, getting less than yesterday c/o nasal congestion c/o mild sob tolerating iv ampicillin Exam Vital Signs Vital Sign - Last Date Time Temp Pulse Resp B/P Pulse Ox O2 Delivery O2 Flow Rate FiO2 07/27/16 12:15 74 21 116/70 96 Nasal Cannula 2.00 07/27/16 05:41 36.4 Intake and Output 07/26/16 07/26/16 07/27/16 Cumulative From/Thru 15:00 23:00 07:00 07/20/16 00:36 - 07/27/16 06:04 Intake Total 100 ml 905 ml 59778 ml Output Total 750 ml 900 ml 68772 ml Balance -650 ml 5 ml -848 ml Intake Oral 100 ml 200 ml 2930 ml IV Total 705 ml 00529 ml Output Urine Total 750 ml 900 ml 13422 ml # Voids 3 3 # Bowel Movements 2 Exam NAD MMM, PERRLA RRR nl s1, s2 no mrg CTAB, no w,c S,ND,NT,BS+ warm, no edema IVs and Medications Medications Reviewed: Medications were reviewed in detail Lab and Diagnostics Result Diagram: 07/27/16 0500 07/27/16 0500 Microbiology Blood cultures positive for E. coli. Respiratory viral panel positive for metapneumovirus. Influenza negative. X-Rays, CTs and MRIs X-RAY CHEST ONE VIEW, PORTABLE (07/22/16) IMPRESSION: Bibasilar airspace opacities similar to prior examination consistent with atelectasis versus aspiration or pneumonia. Dictated by: Juan Pablo FROST Interpreted: Martine Teixeira MD on 07/22/2016 at 10:27 Transcribed by: NEAL on 07/22/2016 at 10:27 Approved by: Martine Teixeira MD, PhD on 07/22/2016 at 16:12 X-RAY CHEST ONE VIEW, (07/21/16) IMPRESSION: Bibasilar atelectasis versus aspiration or pneumonia. Correlate clinically. Dictated by: Juan Pablo FROST Interpreted: Martine Teixeira MD on 07/21/2016 at 16:29 Transcribed by: NEAL on 07/21/2016 at 16:29 Approved by: Martine Teixeira MD, PhD on 07/21/2016 at 16:45 X-RAY CHEST, TWO VIEWS (07/20/16) IMPRESSION: Mild interstitial prominence similar to prior examination. Dictated and approved by: Juan Pablo FROST Interpreted: Mynor Burrows MD on 2015 at 10:38 PROCEDURE: CT KUB (07/20/16) IMPRESSION: 1. 3 x 5 mm proximal right ureteral stone causing mild right-sided hydronephrosis. 2. 2 mm in diameter right UVJ stone. 3. Multiple bilateral nonobstructing renal cortical stones. Dictated and approved by: Martine Teixeira MD, PhD on 07/20/2016 at 9:53 PROCEDURE: X-RAY CHEST ONE VIEW, PORTABLE (07/20/16) IMPRESSION: 1. Placement right IJ CVL tube tip projected over the right internal jugular vein. 2. Interstitial prominence similar to prior examination. Mild edema or atypical pneumonia cannot be excluded. Correlate clinically. Dictated by: Juan Pablo FROST Interpreted: Mynor Burrows MD on 07/20/2016 at 11:20 Transcribed by: IVAN on 07/20/2016 at 11:20 Approved by: Mynor Burrows M.D. on 07/20/2016 at 17:03 US RENAL SONOGRAM IMPRESSION: No hydronephrosis. Dictated and approved by: Lionel Valenzuela M.D. on 07/20/2016 at 19:46 Cardiac Echo Impressions Echocardiogram Interpretation Summary: The left ventricle is normal in size, wall thickness, and systolic function without any focal wall motion abnormalities. The ejection fraction is estimated to be 60-65%. There are no focal wall motion abnormalities. The right ventricle is not well visualized. The right ventricle grossly appears normal in size with probable normal systolic function. Assessment of diastolic parameters indicates a relaxation abnormality of the left ventricle, consistent with normal filling pressures. There is no significant valvular heart disease. No other echocardiographic abnormalities seen. No obvious cause for the patients hypotension noted. Reading Physician:05:00 PM Assessment & Plan lorena Armenta is a 66-year-old female with a past medical history significant for nephrolithiasis, gastritis, obesity, and hypothyroidism who presented to the ED with a week history of right sided abdominal pain, nausea and vomiting. CT of abdomen and pelvis without contrast shows right hydronephrosis and proximal hydroureter secondary to a proximal nonobstructing 3 mm stone and a second distal right ureteral stone measuring 2 mm at the UVJ Admitted on 07/20 for pyelonephritis and sepsis likely secondary to infected ureteral stone. acute, active #Sepsis secondary to pyelonephritis from infected kidney stone, present on admission. Met criteria on admission with an temp of 39.4, hypotension (82/55), tachycardia (HR 108), UTI and bacteremia, Lactic acid and white blood cell count continue to trend down, Blood and urine cultures positive for xiong- sensitive E.coli - Continue antibiotics with ampicillin 2 g IV every 4 hours, plan to continue until 07/29 then stop - Encourage oral intake. Diet per speech. #Pyelonephritis, present on admission. Active. Right-sided hydronephrosis on CT KUB, - Continue antibiotics, per ID and trending of infectious markers #Acute hypoxic respiratory failure, present on admission. ddx-URI w/ hMPV vs asthma exacerbation vs bacterial PNA. flu swab neg. Chest xray shows bibasilar atelectasis versus aspiration or pneumonia. remained afebrile, trending down wbc /procalcitonin with current abx regimen aiming for pyleo -O2 supplement as needed target SpO2>95% - started prednisone 30mg today, will finish 5days course -Duonebs q6h prn, acapella to help mobilize secretions and antibiotics per ID. - no additional abx for PNA given low suspicion, will closely monitor sx progression #Right ureteral calculus, present on admission. Active. CT KUB showed multiple stones bilaterally and a proximal right ureteral stone causing right-sided hydronephrosis, Urology consulted and patient taken to the OR (07/20) for cystoscopy and right stent placement by Dr. Martinez.Renal ultrasound (07/20) showed no free pelvic fluid or hydronephrosis. - Outpatient follow up for definitive therapy once sepsis resolves per Urology Chronic, stable, resolved #GEOVANNI secondary to obstructive uropathy from nephrolithiasis, resolved #Hypothyroidism- Continue home Levothyroxine #GERD- home PPI 40 qd dispo: likely on 07/29 after finishing ampicillin full code diet: regular dvt ppx: HSQ GI Prophylaxis: Proton Pump Inhibitor VTE Mechanical Devices: Intermittant Pneumatic CD Resuscitation Status: CPR: Attempt Resuscitation Time spent 35min Kiran Longoria MD Jul 27, 2016 15:13
--- NOTE | 2016-07-27 16:39 | NUR ---
O2/ Diet Pt tolerating RA while resting in bed, satting in mid to high 90s. Pt's family did put O2 back on after getting up to bathroom and sitting in the chair for a short time, as pt quite short of breath after this. Will continue to monitor O2 closely. Pt's family requesting to speak to speech therapist, as they felt pt could tolerate upgraded diet. Speech therapy unable to do reassessment this shift, informed RN that reassessment could be completed tomorrow. RN informed family and pt, and did give information on diet AMA form - if pt strongly desired different diet for dinner. Pt and family agreed that they were okay to stay on ordered diet until reassessment completed by speech therapist.
[2016-07-28] VITALS (9 sets, daily range): BP systolic 105–132; BP diastolic 64–74; PULSE 63–76; RESP 20–22; O2SAT 97–98
[2016-07-28] MEDS: Ampicillin Inj 2,000 MG in 0.9% Sodium Chloride 100 ML IV SCH ×6 (00:26→20:22)
[2016-07-28] MEDS: Sodium Chloride LOK Flush 10 mL Syringe IVFLUSH SCH ×3 (00:28→16:39)
[2016-07-28] MEDS: Heparin 5,000 Unit/mL Inj SUBQ SCH ×3 (00:29→16:39)
[2016-07-28] MEDS: Pantoprazole 4 mg/mL 10 mL Inj IVPUSH SCH ×2 (04:44→16:39)
[2016-07-28 05:18] LABS: Mean Corpuscular Hemoglobin 30.3 pg (27.0-35.0); Mean Corpuscular Volume 88.3 fL (81-100); Platelet Count 267 bil/L (150-400)
[2016-07-28 05:36] LABS: Phosphorus 2.8 mg/dL (2.5-4.9)
[2016-07-28 05:40] LABS: BASOPHILS % (AUTO) 0 % (0-3); EOSINOPHILS % (AUTO) 2 % (0-5); MONOCYTES % (AUTO) 6 % (4-12); NEUTROPHILS % (AUTO) 60 % (40-74)
--- NOTE | 2016-07-28 05:43 | NUR ---
RESPIRATORY Pt had mostly been on 2L nasal cannula, oxygen saturations mid 90s to 100%. Later in shift, pt had removed oxygen in sleep, oxygen saturations maintained in high 90s. Even after activity to BR, pt able to maintain adequate oxygen saturations. Pt continues to have cough, less productive than previous days per pt report. Pt has been given prn Tessalon pearls, which pt states is effective for improving cough. Continue to monitor. Call light in reach. Family in room. Intentional rounding.
[2016-07-28] MEDS: Nystatin 100,000 Unit/mL 5 mL Suspension PO SCH ×4 (08:08→20:23)
[2016-07-28] MEDS: predniSONE 20 mg Tablet PO SCH (08:08)
[2016-07-28] MEDS: guaiFENesin 600 mg ER12 Tablet PO SCH ×2 (08:08→20:23)
[2016-07-28] MEDS: Timolol-Dorzolamide 10 mL Ophthalmic Solution LEFT_EYE SCH ×2 (08:08→20:23)
[2016-07-28] MEDS: Albuterol-Ipratropium 3 mL Inhalation Solution NEB PRN (09:22)
--- NOTE | 2016-07-28 13:25 | PCM.PNMED ---
Subjective Date of Service Jul 28, 2016 Subjective pt is coughing less, less amount of sputum, less purulent denied SOB Exam Vital Signs Vital Sign - Last Date Time Temp Pulse Resp B/P Pulse Ox O2 Delivery O2 Flow Rate FiO2 07/28/16 09:23 68 97 Room Air 07/28/16 05:57 36.7 20 105/64 07/28/16 00:33 2.00 Intake and Output 07/27/16 07/27/16 07/28/16 Cumulative From/Thru 15:00 23:00 07:00 07/20/16 00:36 - 07/28/16 06:31 Intake Total 1329 ml 754 ml 27315 ml Output Total 1050 ml 1350 ml 54230 ml Balance 279 ml -596 ml -1165 ml Intake Oral 800 ml 420 ml 4150 ml IV Total 529 ml 334 ml 37523 ml Output Urine Total 1050 ml 1350 ml 13625 ml # Voids 3 # Bowel Movements 2 Exam NAD MMM, PERRLA RRR nl s1, s2 no mrg CTAB, no w,c S,ND,NT,BS+ warm, no edema IVs and Medications Medications Reviewed: Medications were reviewed in detail Lab and Diagnostics Result Diagram: 07/28/16 0440 07/28/16 0440 Microbiology Blood cultures positive for E. coli. Respiratory viral panel positive for metapneumovirus. Influenza negative. X-Rays, CTs and MRIs X-RAY CHEST ONE VIEW, PORTABLE (07/22/16) IMPRESSION: Bibasilar airspace opacities similar to prior examination consistent with atelectasis versus aspiration or pneumonia. Dictated by: Juan Pablo FROST Interpreted: Martine Teixeira MD on 07/22/2016 at 10:27 Transcribed by: NEAL on 07/22/2016 at 10:27 Approved by: Martine Teixeira MD, PhD on 07/22/2016 at 16:12 X-RAY CHEST ONE VIEW, (07/21/16) IMPRESSION: Bibasilar atelectasis versus aspiration or pneumonia. Correlate clinically. Dictated by: Juan Pablo FROST Interpreted: Martine Teixeira MD on 07/21/2016 at 16:29 Transcribed by: NEAL on 07/21/2016 at 16:29 Approved by: Martine Teixeira MD, PhD on 07/21/2016 at 16:45 X-RAY CHEST, TWO VIEWS (07/20/16) IMPRESSION: Mild interstitial prominence similar to prior examination. Dictated and approved by: Juan Pablo FROST Interpreted: Mynor Burrows MD on 2015 at 10:38 PROCEDURE: CT KUB (07/20/16) IMPRESSION: 1. 3 x 5 mm proximal right ureteral stone causing mild right-sided hydronephrosis. 2. 2 mm in diameter right UVJ stone. 3. Multiple bilateral nonobstructing renal cortical stones. Dictated and approved by: Martine Teixeira MD, PhD on 07/20/2016 at 9:53 PROCEDURE: X-RAY CHEST ONE VIEW, PORTABLE (07/20/16) IMPRESSION: 1. Placement right IJ CVL tube tip projected over the right internal jugular vein. 2. Interstitial prominence similar to prior examination. Mild edema or atypical pneumonia cannot be excluded. Correlate clinically. Dictated by: Juan Pablo FROST Interpreted: Mynor Burrows MD on 07/20/2016 at 11:20 Transcribed by: IVAN on 07/20/2016 at 11:20 Approved by: Mynor Burrows M.D. on 07/20/2016 at 17:03 US RENAL SONOGRAM IMPRESSION: No hydronephrosis. Dictated and approved by: Lionel Valenzuela M.D. on 07/20/2016 at 19:46 Cardiac Echo Impressions Echocardiogram Interpretation Summary: The left ventricle is normal in size, wall thickness, and systolic function without any focal wall motion abnormalities. The ejection fraction is estimated to be 60-65%. There are no focal wall motion abnormalities. The right ventricle is not well visualized. The right ventricle grossly appears normal in size with probable normal systolic function. Assessment of diastolic parameters indicates a relaxation abnormality of the left ventricle, consistent with normal filling pressures. There is no significant valvular heart disease. No other echocardiographic abnormalities seen. No obvious cause for the patients hypotension noted. Reading Physician:05:00 PM Assessment & Plan lroena Armenta is a 66-year-old female with a past medical history significant for nephrolithiasis, gastritis, obesity, and hypothyroidism who presented to the ED with a week history of right sided abdominal pain, nausea and vomiting. CT of abdomen and pelvis without contrast shows right hydronephrosis and proximal hydroureter secondary to a proximal nonobstructing 3 mm stone and a second distal right ureteral stone measuring 2 mm at the UVJ Admitted on 07/20 for pyelonephritis and sepsis likely secondary to infected ureteral stone. acute, active #Sepsis secondary to pyelonephritis from infected kidney stone, present on admission. Met criteria on admission with an temp of 39.4, hypotension (82/55), tachycardia (HR 108), UTI and bacteremia, Lactic acid and white blood cell count continue to trend down, Blood and urine cultures positive for xiong- sensitive E.coli - Continue antibiotics with ampicillin 2 g IV every 4 hours, plan to continue until 07/29 then stop - Encourage oral intake. Diet per speech. #Pyelonephritis, present on admission. Active. Right-sided hydronephrosis on CT KUB, - Continue antibiotics, per ID and trending of infectious markers #Acute hypoxic respiratory failure, present on admission. ddx-URI w/ hMPV vs asthma exacerbation vs bacterial PNA. flu swab neg. Chest xray shows bibasilar atelectasis versus aspiration or pneumonia. remained afebrile, trending down wbc /procalcitonin with current abx regimen aiming for pyleo -O2 supplement as needed target SpO2>95%, expect to wean off o2 today - started prednisone 30mg 07/27, will finish 5days course -Duonebs q6h prn, acapella to help mobilize secretions and antibiotics per ID. - no additional abx for PNA given low suspicion, will closely monitor sx progression #Right ureteral calculus, present on admission. Active. CT KUB showed multiple stones bilaterally and a proximal right ureteral stone causing right-sided hydronephrosis, Urology consulted and patient taken to the OR (07/20) for cystoscopy and right stent placement by Dr. Martinez.Renal ultrasound (07/20) showed no free pelvic fluid or hydronephrosis. - Outpatient follow up for definitive therapy once sepsis resolves per Urology Chronic, stable, resolved #GEOVANNI secondary to obstructive uropathy from nephrolithiasis, resolved #Hypothyroidism- Continue home Levothyroxine #GERD- home PPI 40 qd dispo: likely tomorrow, home full code diet: regular dvt ppx: HSQ GI Prophylaxis: Proton Pump Inhibitor VTE Mechanical Devices: Intermittant Pneumatic CD Resuscitation Status: CPR: Attempt Resuscitation Time spent 35min Kiran Longoria MD Jul 28, 2016 13:25
--- NOTE | 2016-07-28 13:58 | NUR ---
NUTRITION FOLLOW-UP: ASSESS: 66 yo female admitted to CCU with sepsis, metapneumovirus, hydronephrosis and R ureteral stone; s/p cystoscopy and urethral stent placement 07/20. Diet upgraded to General Diet from pureed on 07/28 per MD. Pt is tolerating diet order well with increased PO intake of 50-100%. PMHX: GERD, hypothyroid, gastritis, kidney stones. LABS: Reviewed. Cr 0.44, ALT 36, Alb 2.8 MEDS: Reviewed. Prednisone. GI: Last BM 07/24. SKIN: Rickey 22. WT: 80.9 kg (wt difference d/t bed vs standing scale), BMI 32.6 kg/m2, IBW 50kg, admit wt 83.4kg DIET: General Diet PO intake 50-100% EST. NEEDS: BMI Kcals: 1615-1780kcal/day (20-22kcal/kg) Pro: 60-75g/day (1.2-1.5g/kg IBW) NUTRITION DIAGNOSIS: 1) Inadequate oral intake related to decreased ability to consume sufficient energy as evidenced by current NPO status - IMPROVED. NUTRITION INTERVENTION: 1) Continue w/ current diet. 2) Continue w/ Ensure lunch and dinner trays. MONITOR / EVAL: Diet tolerance, PO intake, GI, labs, wt, POC, nutrition status. Will continue to monitor per moderate nutrition risk guidelines
--- NOTE | 2016-07-28 15:30 | NUR ---
Physical Therapy: Patient is discharged from PT caseload to continue to mobilize with family or staff with FWW and SBA as tolerated.
--- NOTE | 2016-07-28 17:14 | PROG NOTE ---
[address] [address] PROGRESS NOTE PATIENT: CARMEN CARLTON : 1950 MR#: [id number] ADMIT: 07/20/2016 JOB ID: [id number] DATE: 07/28/2016 REASON FOR FOLLOWUP: Bacteremic complicated E. coli bacteremia with the pulmonary human metapneumovirus infection. INTERVAL HISTORY: Overnight, the patient has improved considerably. She reports less shortness of breath with dropping oxygen requirements though she still has a bit of a cough. She has many questions about when she might be eligible for discharge. She no longer has fevers or chills. PHYSICAL EXAMINATION: Reveals a more comfortable woman. Temp 36.4, she has been consistently afebrile, pulse 65, respiratory rate 20, blood pressure 117/65, saturating 98% on room air. She is in no acute distress. Lungs: Bilateral wheezing which is improved over the really horrendous wheezing we have heard in the past few days. Cardiac tones: Regular rate and rhythm. No new murmur. Abdomen: Benign. The patient still has a stent in her ureter but no longer has a Rodrigues. LABORATORIES: Include white count 14,000, but she is still on steroids which apparently are intended to treat bronchospasm caused by the metapneumovirus. Creatinine 0.44. LFTs are normal. Procalcitonin continues to fall; it was down to 1.4 yesterday. QuantiFERON Gold came back and is indeterminate. No new cultures. IMPRESSION: This patient is doing quite well with respect to her dual infections including bacteremic Escherichia coli complicated urinary tract infection and her metapneumovirus with associated bronchospasm. RECOMMENDATIONS: 1. The patient could be reasonably transitioned to oral antibiotics to finish her treatment for her E. coli bacteremia at any time. Reasonable options here would include Cipro or high-dose amoxicillin. Trimethoprim sulfamethoxazole would be a 3rd option. Probably the easiest way to do this in this patient, however, would be to use a quinolone agent as there is some data that shorter courses can be used when quinolones are employed for complex infections like this. Five days or so of Cipro in addition to the week she has now received of ampicillin would be adequate and a reasonable dose would be 500 mg p.o. b.i.d. 2. There is no treatment, of course, for the human metapneumovirus, so no specific treatment is indicated though it is probably reasonable to taper off the steroids as soon as tolerated. 3. ID will go ahead and sign off with a recommendation to give about five days of oral Cipro upon discharge: 4. We are waiting on a herpes culture from her nose. If this culture is positive, and I suspect it will be, I would treat her for about five days with high-dose valacyclovir as this would undoubtedly be a recurrence and the literature would suggest that five days or so is sufficient.
[2016-07-29] VITALS (10 sets, daily range): BP systolic 93–108; BP diastolic 60–69; PULSE 65–78; RESP 16–22; O2SAT 95–100
[2016-07-29] MEDS: Heparin 5,000 Unit/mL Inj SUBQ SCH ×3 (00:47→16:56)
[2016-07-29] MEDS: Sodium Chloride LOK Flush 10 mL Syringe IVFLUSH SCH ×3 (00:47→15:36)
[2016-07-29] MEDS: Ampicillin Inj 2,000 MG in 0.9% Sodium Chloride 100 ML IV SCH ×4 (00:47→13:05)
[2016-07-29 04:42] LABS: Mean Corpuscular Hemoglobin 29.4 pg (27.0-35.0); Mean Corpuscular Volume 88.8 fL (81-100); Platelet Count 302 bil/L (150-400)
[2016-07-29 05:01] LABS: Magnesium 1.9 mg/dL (1.6-2.6); Phosphorus 2.8 mg/dL (2.5-4.9)
[2016-07-29] MEDS: Pantoprazole 4 mg/mL 10 mL Inj IVPUSH SCH ×2 (05:18→16:55)
[2016-07-29 05:23] LABS: BASOPHILS % (AUTO) 0 % (0-3); EOSINOPHILS % (AUTO) 0 % (0-5); MONOCYTES % (AUTO) 8 % (4-12); NEUTROPHILS % (AUTO) 66 % (40-74)
[2016-07-29] MEDS ORDERED: CIPR-231 PO (07:41)
[2016-07-29] MEDS ORDERED: PRED-508 PO (07:41)
[2016-07-29] MEDS ORDERED: Guaifenesin/D-Methorphan Hb PO (07:41)
[2016-07-29] MEDS ORDERED: VALA500T2 PO (07:41)
[2016-07-29] MEDS: Nystatin 100,000 Unit/mL 5 mL Suspension PO SCH ×4 (08:22→23:10)
[2016-07-29] MEDS: predniSONE 20 mg Tablet PO SCH (08:23)
[2016-07-29] MEDS: Timolol-Dorzolamide 10 mL Ophthalmic Solution LEFT_EYE SCH ×2 (08:23→20:27)
[2016-07-29] MEDS: guaiFENesin 600 mg ER12 Tablet PO SCH ×2 (08:23→20:26)
[2016-07-29] MEDS: Albuterol-Ipratropium 3 mL Inhalation Solution NEB PRN (08:38)
--- NOTE | 2016-07-29 14:02 | PCM.PNMED ---
Subjective Date of Service Jul 29, 2016 Subjective pt is still coughing, congested nose with thick yellowish discharged intermittently not comfortable going home today more cough with deep inspiration Exam Vital Signs Vital Sign - Last Date Time Temp Pulse Resp B/P Pulse Ox O2 Delivery O2 Flow Rate FiO2 07/29/16 09:29 36.5 68 20 93/60 96 Room Air 07/29/16 05:14 3.00 Intake and Output 07/28/16 07/28/16 07/29/16 Cumulative From/Thru 15:00 23:00 07:00 07/20/16 00:36 - 07/29/16 06:26 Intake Total 1000 ml 400 ml 22749 ml Output Total 1100 ml 600 ml 09873 ml Balance -100 ml -200 ml -1465 ml Intake Oral 1000 ml 400 ml 5550 ml IV Total 98851 ml Output Urine Total 1100 ml 600 ml 19033 ml # Voids 3 # Bowel Movements 0 2 Exam NAD MMM, PERRLA RRR nl s1, s2 no mrg intermittent wheezing, no crackles, S,ND,NT,BS+ warm, no edema IVs and Medications Medications Reviewed: Medications were reviewed in detail Lab and Diagnostics Result Diagram: 07/29/16 04207/29/16 0429 Microbiology Blood cultures positive for E. coli. Respiratory viral panel positive for metapneumovirus. Influenza negative. X-Rays, CTs and MRIs X-RAY CHEST ONE VIEW, PORTABLE (07/22/16) IMPRESSION: Bibasilar airspace opacities similar to prior examination consistent with atelectasis versus aspiration or pneumonia. Dictated by: Juan Pablo FROST Interpreted: Martine Teixeira MD on 07/22/2016 at 10:27 Transcribed by: NEAL on 07/22/2016 at 10:27 Approved by: Martine Teixeira MD, PhD on 07/22/2016 at 16:12 X-RAY CHEST ONE VIEW, (07/21/16) IMPRESSION: Bibasilar atelectasis versus aspiration or pneumonia. Correlate clinically. Dictated by: Juan Pablo FROST Interpreted: Martine Teixeira MD on 07/21/2016 at 16:29 Transcribed by: NEAL on 07/21/2016 at 16:29 Approved by: Martine Teixeira MD, PhD on 07/21/2016 at 16:45 X-RAY CHEST, TWO VIEWS (07/20/16) IMPRESSION: Mild interstitial prominence similar to prior examination. Dictated and approved by: Juan Pablo FROST Interpreted: Mynor Burrows MD on 2015 at 10:38 PROCEDURE: CT KUB (07/20/16) IMPRESSION: 1. 3 x 5 mm proximal right ureteral stone causing mild right-sided hydronephrosis. 2. 2 mm in diameter right UVJ stone. 3. Multiple bilateral nonobstructing renal cortical stones. Dictated and approved by: Martine Teixeira MD, PhD on 07/20/2016 at 9:53 PROCEDURE: X-RAY CHEST ONE VIEW, PORTABLE (07/20/16) IMPRESSION: 1. Placement right IJ CVL tube tip projected over the right internal jugular vein. 2. Interstitial prominence similar to prior examination. Mild edema or atypical pneumonia cannot be excluded. Correlate clinically. Dictated by: Juan Pablo FROST Interpreted: Mynor Burrows MD on 07/20/2016 at 11:20 Transcribed by: IVAN on 07/20/2016 at 11:20 Approved by: Mynor Burrows M.D. on 07/20/2016 at 17:03 US RENAL SONOGRAM IMPRESSION: No hydronephrosis. Dictated and approved by: Lionel Valenzuela M.D. on 07/20/2016 at 19:46 Cardiac Echo Impressions Echocardiogram Interpretation Summary: The left ventricle is normal in size, wall thickness, and systolic function without any focal wall motion abnormalities. The ejection fraction is estimated to be 60-65%. There are no focal wall motion abnormalities. The right ventricle is not well visualized. The right ventricle grossly appears normal in size with probable normal systolic function. Assessment of diastolic parameters indicates a relaxation abnormality of the left ventricle, consistent with normal filling pressures. There is no significant valvular heart disease. No other echocardiographic abnormalities seen. No obvious cause for the patients hypotension noted. Reading Physician:05:00 PM Assessment & Plan lorena Armenta is a 66-year-old female with a past medical history significant for nephrolithiasis, gastritis, obesity, and hypothyroidism who presented to the ED with a week history of right sided abdominal pain, nausea and vomiting. CT of abdomen and pelvis without contrast shows right hydronephrosis and proximal hydroureter secondary to a proximal nonobstructing 3 mm stone and a second distal right ureteral stone measuring 2 mm at the UVJ Admitted on 07/20 for pyelonephritis and sepsis likely secondary to infected ureteral stone. acute, active #Sepsis secondary to pyelonephritis from infected kidney stone, present on admission. Met criteria on admission with an temp of 39.4, hypotension (82/55), tachycardia (HR 108), UTI and bacteremia, Lactic acid and white blood cell count continue to trend down, Blood and urine cultures positive for xiong- sensitive E.coli - finished ampicillin 2 g IV every 4 hours on 07/29, switched to Cipro for 5more days per ID recs - Encourage oral intake. Diet per speech. #Pyelonephritis, present on admission. Active. Right-sided hydronephrosis on CT KUB, - Continue antibiotics, per ID and trending of infectious markers #Acute hypoxic respiratory failure, present on admission. acute bronchitis due to hMPV infection. pt didn use inhalers prn at home, no dx of reactive airway dz. Flu swab neg. Chest xray shows bibasilar atelectasis versus aspiration or pneumonia. remained afebrile, trending down wbc/procalcitonin with current abx regimen aiming for pyleo -O2 supplement as needed target SpO2>95%, expect to wean off o2 upon d/c - started prednisone 30mg 07/27, will finish 5days course --Duonebs q6h prn, acapella to help mobilize secretions - no additional abx for PNA given low suspicion, will closely monitor sx progression #Right ureteral calculus, present on admission. Active. CT KUB showed multiple stones bilaterally and a proximal right ureteral stone causing right-sided hydronephrosis, Urology consulted and patient taken to the OR (07/20) for cystoscopy and right stent placement by Dr. Martinez.Renal ultrasound (07/20) showed no free pelvic fluid or hydronephrosis. - Outpatient follow up for definitive therapy once sepsis resolves per Urology Chronic, stable, resolved #GEOVANNI secondary to obstructive uropathy from nephrolithiasis, resolved #Hypothyroidism- Continue home Levothyroxine #GERD- home PPI 40 qd dispo: given persistent cough, d/c postponed, likely tomorrow, home full code diet: regular dvt ppx: HSQ GI Prophylaxis: Proton Pump Inhibitor VTE Mechanical Devices: Intermittant Pneumatic CD Resuscitation Status: CPR: Attempt Resuscitation Time spent 35min Kiran Longoria MD Jul 29, 2016 14:01
[2016-07-30] VITALS (12 sets, daily range): BP systolic 88–104; BP diastolic 54–66; PULSE 57–89; RESP 16–22; O2SAT 93–99
[2016-07-30] MEDS: Sodium Chloride LOK Flush 10 mL Syringe IVFLUSH SCH ×4 (00:42→21:21)
[2016-07-30] MEDS: Heparin 5,000 Unit/mL Inj SUBQ SCH ×2 (00:42→08:48)
[2016-07-30] MEDS: Pantoprazole 4 mg/mL 10 mL Inj IVPUSH SCH ×2 (05:15→16:40)
--- NOTE | 2016-07-30 07:42 | NUR ---
Uneventful night Pt alert and orientedx3,c/o mild SOB,cough intermittently,small clear sputum, cough meds given,cough improved per pt, coarse lung sounds bilaterally, a few wheezes, NEB administered by RT, pt denies any pain/N/V/fever/chills, VSS,SPO2 above 95 on RA, sleeping overnight.
[2016-07-30 08:04] LABS: BASOPHILS % (AUTO) 0.2 % (0-3); EOSINOPHILS % (AUTO) 1.1 % (0-5); Mean Corpuscular Hemoglobin 29.8 pg (27.0-35.0); Mean Corpuscular Volume 88.9 fL (81-100); NEUTROPHILS % (AUTO) 59.8 % (40-74); Platelet Count 354 bil/L (150-400)
[2016-07-30 08:35] LABS: Phosphorus 2.8 mg/dL (2.5-4.9)
--- NOTE | 2016-07-30 08:45 | NUR ---
SANDRA signed Verbal permission to sign by pt, pt on precautions. CHARLY Patterson
[2016-07-30] MEDS: Nystatin 100,000 Unit/mL 5 mL Suspension PO SCH ×4 (08:48→21:21)
[2016-07-30] MEDS: predniSONE 20 mg Tablet PO SCH (08:48)
[2016-07-30] MEDS: Timolol-Dorzolamide 10 mL Ophthalmic Solution LEFT_EYE SCH ×2 (08:48→21:21)
[2016-07-30] MEDS: guaiFENesin 600 mg ER12 Tablet PO SCH ×2 (08:48→21:21)
[2016-07-30] MEDS ORDERED: Furosemide 10 mg/mL 2 mL Inj IVPUSH ONE (09:25)
[2016-07-30] MEDS: Albuterol-Ipratropium 3 mL Inhalation Solution NEB SCH ×4 (10:05→20:28)
--- NOTE | 2016-07-30 12:03 | DRSVH ---
PROCEDURE: X-RAY CHEST, TWO VIEWS ([id number]) INDICATIONS: pulmonary edema TECHNIQUE: 2 views of the chest were acquired. COMPARISON: [facility], CR, XR CHEST 2VW, 07/27/2016, 8:57. FINDINGS: Surgical changes and devices: None. Lungs and pleura: No pleural effusions or pneumothorax. Bibasilar patchy opacities are grossly uncha nged to minimally improved.. Mediastinum: Mediastinal contours are normal. Heart size is normal. Bones and chest wall: No suspicious bony abnormalities. Soft tissues appear unremarkable. IMPRESSION: Unchanged appearance of bibasilar opacities since 07/27/16 Dictated by: Trey Palacios M.D. on 07/30/2016 at 12:01 Approved by: Trey Palacios M.D. on 07/30/2016 at 12:01
--- NOTE | 2016-07-30 13:04 | PCM.PNMED ---
Subjective Date of Service Jul 30, 2016 Subjective d/c delayed due to persistent cough, MARIE with minimal exertion to bathroom pt was coughing constantly while talking, no sputum, wheezy CXR unchanged, remained afebrile, tried lasix this AM Exam Vital Signs Vital Sign - Last Date Time Temp Pulse Resp B/P Pulse Ox O2 Delivery O2 Flow Rate FiO2 07/30/16 12:44 79 16 95 07/30/16 10:01 36.7 92/58 Room Air 07/29/16 05:14 3.00 Intake and Output 07/29/16 07/29/16 07/30/16 Cumulative From/Thru 15:00 23:00 07:00 07/20/16 00:36 - 07/30/16 06:40 Intake Total 406 ml 1090 ml 272 ml 48057 ml Output Total 580 ml 1150 ml 78039 ml Balance 406 ml 510 ml -878 ml -1427 ml Intake Oral 800 ml 200 ml 6550 ml IV Total 406 ml 290 ml 72 ml 44823 ml Output Urine Total 580 ml 1150 ml 05621 ml # Voids 3 # Bowel Movements 0 2 Exam NAD, comfortably laying down on the bed no JVD, MMM, no LAD RRR, nl s1, s2 no mrg diffuse wheezing throughout S,ND,NT,normoactive BS+ warm, no edema, pulses 2/2 IVs and Medications Medications Reviewed: Medications were reviewed in detail Lab and Diagnostics Result Diagram: 07/30/16 0801 07/30/16 0801 Microbiology Blood cultures positive for E. coli. Respiratory viral panel positive for metapneumovirus. Influenza negative. X-Rays, CTs and MRIs X-RAY CHEST ONE VIEW, PORTABLE (07/22/16) IMPRESSION: Bibasilar airspace opacities similar to prior examination consistent with atelectasis versus aspiration or pneumonia. Dictated by: Juan Pablo FROST Interpreted: Martine Teixeira MD on 07/22/2016 at 10:27 Transcribed by: NEAL on 07/22/2016 at 10:27 Approved by: Martine Teixeira MD, PhD on 07/22/2016 at 16:12 X-RAY CHEST ONE VIEW, (07/21/16) IMPRESSION: Bibasilar atelectasis versus aspiration or pneumonia. Correlate clinically. Dictated by: Juan Pablo FROST Interpreted: Martine Teixeira MD on 07/21/2016 at 16:29 Transcribed by: NEAL on 07/21/2016 at 16:29 Approved by: Martine Teixeira MD, PhD on 07/21/2016 at 16:45 X-RAY CHEST, TWO VIEWS (07/20/16) IMPRESSION: Mild interstitial prominence similar to prior examination. Dictated and approved by: Juan Pablo FROST Interpreted: Mynor Burrows MD on 2015 at 10:38 PROCEDURE: CT KUB (07/20/16) IMPRESSION: 1. 3 x 5 mm proximal right ureteral stone causing mild right-sided hydronephrosis. 2. 2 mm in diameter right UVJ stone. 3. Multiple bilateral nonobstructing renal cortical stones. Dictated and approved by: Martine Teixeira MD, PhD on 07/20/2016 at 9:53 PROCEDURE: X-RAY CHEST ONE VIEW, PORTABLE (07/20/16) IMPRESSION: 1. Placement right IJ CVL tube tip projected over the right internal jugular vein. 2. Interstitial prominence similar to prior examination. Mild edema or atypical pneumonia cannot be excluded. Correlate clinically. Dictated by: Juan Pablo FROST Interpreted: Mynor Burrows MD on 07/20/2016 at 11:20 Transcribed by: IVAN on 07/20/2016 at 11:20 Approved by: Mynor Burrows M.D. on 07/20/2016 at 17:03 RENAL SONOGRAM IMPRESSION: No hydronephrosis. Dictated and approved by: Lionel Valenzuela M.D. on 07/20/2016 at 19:46 Cardiac Echo Impressions Echocardiogram Interpretation Summary: The left ventricle is normal in size, wall thickness, and systolic function without any focal wall motion abnormalities. The ejection fraction is estimated to be 60-65%. There are no focal wall motion abnormalities. The right ventricle is not well visualized. The right ventricle grossly appears normal in size with probable normal systolic function. Assessment of diastolic parameters indicates a relaxation abnormality of the left ventricle, consistent with normal filling pressures. There is no significant valvular heart disease. No other echocardiographic abnormalities seen. No obvious cause for the patients hypotension noted. Reading Physician:05:00 PM Assessment & Plan Aida Armenta is a 66-year-old female with a past medical history significant for nephrolithiasis, gastritis, obesity, and hypothyroidism who presented to the ED with a week history of right sided abdominal pain, nausea and vomiting. CT of abdomen and pelvis without contrast shows right hydronephrosis and proximal hydroureter secondary to a proximal nonobstructing 3 mm stone and a second distal right ureteral stone measuring 2 mm at the UVJ Admitted on 07/20 for pyelonephritis and sepsis likely secondary to infected ureteral stone. acute, active #Acute hypoxic respiratory failure, present on admission. acute bronchitis due to hMPV infection vs possible HFpEF. pt didn use inhalers prn at home, no dx of reactive airway dz. Flu swab neg. Chest xray 07/30 again shows bibasilar atelectasis, unchanged from 07/27, pt remained afebrile, trending down wbc/ procalcitonin with current abx regimen aiming for pyleo -will try lasix, monitor symptoms, -O2 supplement as needed target SpO2>95%, expect to wean off o2 upon d/c - started prednisone 30mg 07/27, will finish 5days course --Duonebs q4h standing, acapella to help mobilize secretions - no additional abx for PNA given low suspicion, will closely monitor sx progression #Sepsis secondary to pyelonephritis from infected kidney stone, present on admission. Met criteria on admission with an temp of 39.4, hypotension (82/55), tachycardia (HR 108), UTI and bacteremia, Lactic acid and white blood cell count continue to trend down, Blood and urine cultures positive for xiong- sensitive E.coli - finished ampicillin 2 g IV every 4 hours on 07/29, switched to Cipro for 5more days per ID recs - Encourage oral intake. Diet per speech. #Pyelonephritis, present on admission. Active. Right-sided hydronephrosis on CT KUB, - Continue antibiotics, per ID and trending of infectious markers #Right ureteral calculus, present on admission. Active. CT KUB showed multiple stones bilaterally and a proximal right ureteral stone causing right-sided hydronephrosis, Urology consulted and patient taken to the OR (07/20) for cystoscopy and right stent placement by Dr. Martinez.Renal ultrasound (07/20) showed no free pelvic fluid or hydronephrosis. 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
[2016-07-31] VITALS (15 sets, daily range): BP systolic 90–104; BP diastolic 56–68; PULSE 73–98; RESP 14–22; O2SAT 92–97
[2016-07-31] MEDS: Albuterol-Ipratropium 3 mL Inhalation Solution NEB SCH ×6 (01:46→19:29)
[2016-07-31] MEDS: Pantoprazole 4 mg/mL 10 mL Inj IVPUSH SCH ×2 (05:11→16:19)
--- NOTE | 2016-07-31 05:13 | NUR ---
Uneventful Night Pt slept the entire night without complaints except a headache at 0500 for which Tylenol will be given. VSS with BP running in the 90s/50s
[2016-07-31] MEDS: guaiFENesin 600 mg ER12 Tablet PO SCH ×2 (08:45→20:38)
[2016-07-31] MEDS: Nystatin 100,000 Unit/mL 5 mL Suspension PO SCH ×4 (08:45→20:39)
[2016-07-31] MEDS: Timolol-Dorzolamide 10 mL Ophthalmic Solution LEFT_EYE SCH ×2 (08:45→20:38)
[2016-07-31] MEDS: Furosemide 10 mg/mL 4 mL Inj IVPUSH SCH ×2 (08:46→20:38)
[2016-07-31] MEDS: Sodium Chloride LOK Flush 10 mL Syringe IVFLUSH SCH ×2 (08:46→16:20)
[2016-07-31 08:51] LABS: BASOPHILS % (AUTO) 0.5 % (0-3); EOSINOPHILS % (AUTO) 0.9 % (0-5); MONOCYTES % (AUTO) 9.5 % (4-12); Mean Corpuscular Hemoglobin 30.1 pg (27.0-35.0); Mean Corpuscular Volume 90.5 fL (81-100); NEUTROPHILS % (AUTO) 55.3 % (40-74); Platelet Count 431 bil/L (150-400)
[2016-07-31] MEDS: Fluticasone 100 mCg Inhaler INHALATION SCH ×2 (09:04→20:38)
[2016-07-31] MEDS: predniSONE 20 mg Tablet PO SCH (09:04)
[2016-07-31 09:15] LABS: Magnesium 1.9 mg/dL (1.6-2.6); Phosphorus 3.4 mg/dL (2.5-4.9)
--- NOTE | 2016-07-31 10:55 | NUR ---
Social Work: Readiness for d/c Data: Pt is on day 11 of hospitalization. EMR reviewed, pt discussed in rounds. states pt likely ready for d/c tomorrow. HORSE [employer]OER will continue to follow. Assessment: Pt who is independent at baseline. Plan: Pt will d/c home via POV when medically stable, likely tomorrow, with [facility], PT/ST/OT. Pt declining walker. HORSE SHOER will continue to follow. CHARLY Patterson
--- NOTE | 2016-07-31 12:11 | PCM.PNMED ---
Subjective Date of Service Jul 31, 2016 Subjective pt thought she felt better with lasix, when laying down, coughing constantly in the morning not much sputum today can ambulate on RA, no MARIE no fever, Nebs definitely made her breathing better Exam Vital Signs Vital Sign - Last Date Time Temp Pulse Resp B/P Pulse Ox O2 Delivery O2 Flow Rate FiO2 07/31/16 10:17 86 07/31/16 09:17 37.0 18 103/68 96 Room Air 07/29/16 05:14 3.00 Intake and Output 07/30/16 07/30/16 07/31/16 Cumulative From/Thru 15:00 23:00 07:00 07/20/16 00:36 - 07/31/16 06:41 Intake Total 820 ml 400 ml 75628 ml Output Total 600 ml 800 ml 10007 ml Balance 220 ml -400 ml -1607 ml Intake Oral 820 ml 400 ml 7770 ml IV Total 76637 ml Output Urine Total 600 ml 800 ml 71089 ml # Voids 3 # Bowel Movements 0 2 Exam NAD, comfortably laying down on the bed no JVD, MMM, no LAD RRR, nl s1, s2 no mrg diffuse wheezing throughout S,ND,NT,normoactive BS+ warm, no edema, pulses 2/2 IVs and Medications Medications Reviewed: Medications were reviewed in detail Lab and Diagnostics Result Diagram: 07/31/16 0848 07/31/16 0848 Microbiology Blood cultures positive for E. coli. Respiratory viral panel positive for metapneumovirus. Influenza negative. X-Rays, CTs and MRIs X-RAY CHEST ONE VIEW, PORTABLE (07/22/16) IMPRESSION: Bibasilar airspace opacities similar to prior examination consistent with atelectasis versus aspiration or pneumonia. Dictated by: Juan Pablo FROST Interpreted: Martine Teixeira MD on 07/22/2016 at 10:27 Transcribed by: NEAL on 07/22/2016 at 10:27 Approved by: Martine Teixeira MD, PhD on 07/22/2016 at 16:12 X-RAY CHEST ONE VIEW, (07/21/16) IMPRESSION: Bibasilar atelectasis versus aspiration or pneumonia. Correlate clinically. Dictated by: Juan Pablo FROST Interpreted: Martine Teixeira MD on 07/21/2016 at 16:29 Transcribed by: NELA on 07/21/2016 at 16:29 Approved by: Martine Teixeira MD, PhD on 07/21/2016 at 16:45 X-RAY CHEST, TWO VIEWS (07/20/16) IMPRESSION: Mild interstitial prominence similar to prior examination. Dictated and approved by: Juan Pablo FROST Interpreted: Mynor Burrows MD on 2015 at 10:38 PROCEDURE: CT KUB (07/20/16) IMPRESSION: 1. 3 x 5 mm proximal right ureteral stone causing mild right-sided hydronephrosis. 2. 2 mm in diameter right UVJ stone. 3. Multiple bilateral nonobstructing renal cortical stones. Dictated and approved by: Martine Teixeira MD, PhD on 07/20/2016 at 9:53 PROCEDURE: X-RAY CHEST ONE VIEW, PORTABLE (07/20/16) IMPRESSION: 1. Placement right IJ CVL tube tip projected over the right internal jugular vein. 2. Interstitial prominence similar to prior examination. Mild edema or atypical pneumonia cannot be excluded. Correlate clinically. Dictated by: Juan Pablo FROST Interpreted: Mynor Burrows MD on 07/20/2016 at 11:20 Transcribed by: IVAN on 07/20/2016 at 11:20 Approved by: Mynor Burrows M.D. on 07/20/2016 at 17:03 US RENAL SONOGRAM IMPRESSION: No hydronephrosis. Dictated and approved by: Lionel Valenzuela M.D. on 07/20/2016 at 19:46 Cardiac Echo Impressions Echocardiogram Interpretation Summary: The left ventricle is normal in size, wall thickness, and systolic function without any focal wall motion abnormalities. The ejection fraction is estimated to be 60-65%. There are no focal wall motion abnormalities. The right ventricle is not well visualized. The right ventricle grossly appears normal in size with probable normal systolic function. Assessment of diastolic parameters indicates a relaxation abnormality of the left ventricle, consistent with normal filling pressures. There is no significant valvular heart disease. No other echocardiographic abnormalities seen. No obvious cause for the patients hypotension noted. Reading Physician:05:00 PM Assessment & Plan Aida Armenta is a 66-year-old female with a past medical history significant for nephrolithiasis, gastritis, obesity, and hypothyroidism who presented to the ED with a week history of right sided abdominal pain, nausea and vomiting. CT of abdomen and pelvis without contrast shows right hydronephrosis and proximal hydroureter secondary to a proximal nonobstructing 3 mm stone and a second distal right ureteral stone measuring 2 mm at the UVJ Admitted on 07/20 for pyelonephritis and sepsis likely secondary to infected ureteral stone. acute, active #Acute hypoxic respiratory failure, present on admission. acute bronchitis due to hMPV infection vs possible HFpEF. pt didn use inhalers prn at home, no dx of reactive airway dz. Flu swab neg. Chest xray 07/30 again shows bibasilar atelectasis, unchanged from 07/27, -pt remained afebrile, still no suspicion for PNA, however, given prolonged wheezing, will aggressively treat for reactive airway dz, possible pulmonary congestion. -s/p 20mgiv yesterday, will try lasix 40mg iv bid today -O2 supplement as needed target SpO2>95%, pt is maintaining on RA - started prednisone 30mg 07/27, increase to 60mg today --Duonebs q4h standing, start QVAR bid today - no additional abx for PNA given low suspicion, will closely monitor sx progression #Sepsis secondary to pyelonephritis from infected kidney stone, present on admission. Met criteria on admission with an temp of 39.4, hypotension (82/55), tachycardia (HR 108), UTI and bacteremia, Lactic acid and white blood cell count continue to trend down, Blood and urine cultures positive for xiong- sensitive E.coli - finished ampicillin 2 g IV every 4 hours on 07/29, switched to Cipro for 5more days per ID recs - Encourage oral intake. Diet per speech. #Pyelonephritis, present on admission. Active. Right-sided hydronephrosis on CT KUB, - Continue antibiotics, per ID and trending of infectious markers #Right ureteral calculus, present on admission. Active. CT KUB showed multiple stones bilaterally and a proximal right ureteral stone causing right-sided hydronephrosis, Urology consulted and patient taken to the OR (07/20) for cystoscopy and right stent placement by Dr. Martinez.Renal ultrasound (07/20) showed no free pelvic fluid or hydronephrosis. 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
[2016-08-01 00:01] VITALS: PULSE 72; RESP 16; O2SAT 95
[2016-08-01] MEDS: Albuterol-Ipratropium 3 mL Inhalation Solution NEB SCH ×2 (00:01→08:56)
[2016-08-01 00:29] VITALS: BP 103/68; PULSE 91; RESP 22; O2SAT 93
[2016-08-01] MEDS: Sodium Chloride LOK Flush 10 mL Syringe IVFLUSH SCH ×2 (00:40→08:06)
[2016-08-01] MEDS: Pantoprazole 4 mg/mL 10 mL Inj IVPUSH SCH (04:41)
[2016-08-01 04:47] VITALS: BP 110/67; PULSE 81; RESP 22; O2SAT 93
[2016-08-01 05:02] LABS: BASOPHILS % (AUTO) 0.4 % (0-3); EOSINOPHILS % (AUTO) 0.4 % (0-5); Mean Corpuscular Hemoglobin 30.2 pg (27.0-35.0); Mean Corpuscular Volume 89.6 fL (81-100); NEUTROPHILS % (AUTO) 61.1 % (40-74); Platelet Count 477 bil/L (150-400)
[2016-08-01 05:26] LABS: Magnesium 2.1 mg/dL (1.6-2.6); Phosphorus 3.8 mg/dL (2.5-4.9)
--- NOTE | 2016-08-01 05:51 | NUR ---
Cough/SOB Pt had a mild sob while coughing last night but has been relieved shortly in a couple of minutes. Breathing Tx administered by RT as scheduled. Denies chest pain, n/v and abd discomfort. HS meds administered as scheduled. Hourly rounding done and pt has slept most of the night.
[2016-08-01 08:00] VITALS: PULSE 84
[2016-08-01] MEDS: Fluticasone 100 mCg Inhaler INHALATION SCH (08:05)
[2016-08-01] MEDS: predniSONE 20 mg Tablet PO SCH (08:05)
[2016-08-01] MEDS: Timolol-Dorzolamide 10 mL Ophthalmic Solution LEFT_EYE SCH (08:06)
[2016-08-01] MEDS: guaiFENesin 600 mg ER12 Tablet PO SCH (08:06)
[2016-08-01] MEDS: Nystatin 100,000 Unit/mL 5 mL Suspension PO SCH (08:06)
[2016-08-01] MEDS: Furosemide 10 mg/mL 4 mL Inj IVPUSH SCH (08:06)
[2016-08-01 08:57] VITALS: PULSE 72; RESP 16; O2SAT 95
[2016-08-01 09:53] VITALS: BP 96/59; PULSE 83; RESP 22; O2SAT 99
--- NOTE | 2016-08-01 11:21 | PCM.DIMED ---
Discharge Instructions Date of Service Jul 29, 2016 Dates of Hospitalization Jul 20, 2016 at 05:26 Discharge Diagnosis Discharge Diagnosis #Sepsis secondary to pyelonephritis, #Escherichia coli bacteremia #Right ureteral calculus, hydronephrosis #Acute hypoxic respiratory failure, in the setting of acute bronchitis, URI w/ hMPV, possible underlying asthma Chronic, stable, resolved #GEOVANNI secondary to obstructive uropathy #Hypothyroidism #GERD Medication Instructions Please take prednisone 60mg daily for 3more days take 30mg for 2days take 10mg for 2days and stop Please use combivent inhaler every 2 to 4hours as needed for difficulty of breathing Please continue Qvar inhaler, 2puffs, twice a day Please continue Ciprofloxacin for 2more days Diet No restrictions Activity No restrictions Call your provider Shortness of breath, Chest pain Patient Instructions You were hospitalized with abdominal pain, nausea, vomiting, you were treated for infected kidney, kidney stones, kidney injuries, bronchitis. Please follow up with Urologist given stent placed, information was provided Please follow up medicine instruction as above Instruction to PCP Please note that hospitalization was prolonged because of persistent cough and wheezing, which seems to improve with treatment for asthma. Please refer patient to PFT once this acute episode is over, pt was given tx of asthma upon d/c Follow-up plan Please follow with primary doctor in 2 weeks Follow-up Provider: Julio Hutchinson MD Follow-up with PCP in: 2 weeks Kiran Longoria MD Jul 29, 2016 13:08
[2016-08-01] MEDS ORDERED: PRED-508 PO (11:26)
[2016-08-01] MEDS ORDERED: FLUT100D2 INHALATION (11:26)
--- NOTE | 2016-08-01 11:38 | NUR ---
Social Work-discharge: Data:EMR Reviewed. Pt is on day 12 of hospitalization for sepsis per H&P. Pt is medically stable for discharge home today. PT has cleared pt for home with HH services, pt ambulating 50ft. SW followed up with pt and Adolfo at bedside to confirm discharge plan. SW explained [facility] had been set up for follow up at home. Pt and are both in agreement that they do not want these services. SW explained that these were the recommendations of therapy and MD, both declining. Pt states her will be able to assist her at home. SW called Aly Bernard with [facility] and informed him that pt is not interested in these services now. Pt also declining [facility]. Pt's to provide transport home today. All updated and agreeable to plan. Assessment:Pt who is independent at baseline. Plan:Pt to discharge home today via POV. Pt declining HH and [facility], stating her assist will assist her at home. All updated and agreeable to plan. Regina Orozco MSW
[2016-08-01] MEDS ORDERED: Acetaminophen PO (12:40)
--- NOTE | 2016-08-01 14:05 | NUR ---
Discharge Patient discharge to home with all belongings at 1356. Explained to patient new medications (Ciprofloxacin, acetaminophen, flovent Diskus and guaifenesin), when next medications are due and discharge instructions. IV therapy dc'd PICC line. Dc'd telemetry. Vitals stable. Patient left floor via wheelchair accompanied by ENGLISH L[employer]ER and daughter with no signs of distress.
--- NOTE | 2016-08-04 13:30 | PCM.DC.MED ---
Discharge Summary Date of Service Aug 01, 2016 Dates of Hospitalization Date of Hospital Admission Jul 20, 2016 at 05:26 Date of Discharge: Aug 01, 2016 Providers: Admitting Physician: Noni Urbina MD Primary Care Physician: Julio Hutchinson MD Attending Physician: Nnoi Urbina MD Diagnosis at Time of Discharge Diagnosis at Time of Discharge #Sepsis secondary to pyelonephritis, #Escherichia coli bacteremia #Right ureteral calculus, hydronephrosis #Acute hypoxic respiratory failure, in the setting of acute bronchitis, URI w/ hMPV, possible underlying asthma Chronic, stable, resolved #GEOVANNI secondary to obstructive uropathy #Hypothyroidism #GERD Consultations ID Procedures XRay, CTs & MRIs PROCEDURE: X-RAY CHEST, TWO VIEWS ([id number]) INDICATIONS: pulmonary edema TECHNIQUE: 2 views of the chest were acquired. COMPARISON: [facility], , XR CHEST 2VW, 07/27/2016, 8:57. FINDINGS: Surgical changes and devices: None. Lungs and pleura: No pleural effusions or pneumothorax. Bibasilar patchy opacities are grossly unchanged to minimally improved.. Mediastinum: Mediastinal contours are normal. Heart size is normal. Bones and chest wall: No suspicious bony abnormalities. Soft tissues appear unremarkable. IMPRESSION: Unchanged appearance of bibasilar opacities since 07/27/16 Dictated by: Trey Palacios M.D. on 07/30/2016 at 12:01 Approved by: Trey Palacios M.D. on 07/30/2016 at 12:01 X-RAY CHEST ONE VIEW, PORTABLE (07/22/16) IMPRESSION: Bibasilar airspace opacities similar to prior examination consistent with atelectasis versus aspiration or pneumonia. Dictated by: Juan Pablo FROST Interpreted: Martine Teixeira MD on 07/22/2016 at 10:27 Transcribed by: NEAL on 07/22/2016 at 10:27 Approved by: Martine Teixeira MD, PhD on 07/22/2016 at 16:12 X-RAY CHEST ONE VIEW, (07/21/16) IMPRESSION: Bibasilar atelectasis versus aspiration or pneumonia. Correlate clinically. Dictated by: Juan Pablo FROST Interpreted: Martine Teixeira MD on 07/21/2016 at 16:29 Transcribed by: NEAL on 07/21/2016 at 16:29 Approved by: Martine Teixeira MD, PhD on 07/21/2016 at 16:45 X-RAY CHEST, TWO VIEWS (07/20/16) IMPRESSION: Mild interstitial prominence similar to prior examination. Dictated and approved by: Juan Pablo FROST Interpreted: Mynor Burrows MD on 2015 at 10:38 PROCEDURE: CT KUB (07/20/16) IMPRESSION: 1. 3 x 5 mm proximal right ureteral stone causing mild right-sided hydronephrosis. 2. 2 mm in diameter right UVJ stone. 3. Multiple bilateral nonobstructing renal cortical stones. Dictated and approved by: Martine Teixeira MD, PhD on 07/20/2016 at 9:53 PROCEDURE: X-RAY CHEST ONE VIEW, PORTABLE (07/20/16) IMPRESSION: 1. Placement right IJ CVL tube tip projected over the right internal jugular vein. 2. Interstitial prominence similar to prior examination. Mild edema or atypical pneumonia cannot be excluded. Correlate clinically. Dictated by: Juan Pablo FROST Interpreted: Mynor Burrows MD on 07/20/2016 at 11:20 Transcribed by: IVAN on 07/20/2016 at 11:20 Approved by: Mynor Burrows M.D. on 07/20/2016 at 17:03 US RENAL SONOGRAM IMPRESSION: No hydronephrosis. Dictated and approved by: Lionel Valenzuela M.D. on 07/20/2016 at 19:46 Cardiac Echo Impression Echocardiogram Interpretation Summary: The left ventricle is normal in size, wall thickness, and systolic function without any focal wall motion abnormalities. The ejection fraction is estimated to be 60-65%. There are no focal wall motion abnormalities. The right ventricle is not well visualized. The right ventricle grossly appears normal in size with probable normal systolic function. Assessment of diastolic parameters indicates a relaxation abnormality of the left ventricle, consistent with normal filling pressures. There is no significant valvular heart disease. No other echocardiographic abnormalities seen. No obvious cause for the patients hypotension noted. Reading Physician:05:00 PM Brief History H&P obtained by on 07/20 This is a 66-year-old female who comes in accompanied by family with few week history of right sided abdominal pain. She has had nausea vomiting which started today. She is also had some fevers and chills today. Her bowel movements have been normal. She does have a history of kidney stones one year ago and was treated by the urologist Dr. Colby. Her evaluation today in the emergency room reveals CT of abdomen and pelvis without contrast shows right hydronephrosis and proximal hydroureter secondary to a proximal nonobstructing 3 mm stone and a second distal right ureteral stone measuring 2 mm at the UVJ her temperature here is noted to be 39.4. Her white count is 6.5 with 91% polys and 5% lymphs. Her UA shows large occult blood negative nitrite and moderate leukocyte esterase RBCs greater than 50 wbc's 6-10 many epithelial cells with many bacteria. Her BUN is 24 with creatinine of 1.16 approximately a year ago she had a creatinine of 0.5. Calculated GFR is 67. Lactic acid is 7.5. Troponin is 0.010. Bicarbonate is 17. She denies any chest pain or shortness of breath. She denies any urinary frequency or burning. Hospital Course Aida Armenta is a 66-year-old female with a past medical history significant for nephrolithiasis, gastritis, obesity, and hypothyroidism who presented to the ED with a week history of right sided abdominal pain, nausea and vomiting. CT of abdomen and pelvis without contrast shows right hydronephrosis and proximal hydroureter secondary to a proximal nonobstructing 3 mm stone and a second distal right ureteral stone measuring 2 mm at the UVJ Admitted on 07/20 for pyelonephritis and sepsis likely secondary to infected ureteral stone. #Sepsis secondary to pyelonephritis in the setting of nephrolithiasis, present on admission. Met criteria on admission with an temp of 39.4, hypotension (82/55 ), tachycardia (HR 108), UTI and bacteremia, Blood and urine cultures positive for xiong-sensitive E.coli, ID was consulted. pt was started on ampicillin 2 g IV every 4 hours on 07/29, switched to Cipro for 5more days to finish upon d/c. Pt remained HD stable, afebrile on antibiotics. #Right ureteral calculus, present on admission. Active. CT KUB showed multiple stones bilaterally and a proximal right ureteral stone causing right-sided hydronephrosis, Urology consulted and patient taken to the OR (07/20) for cystoscopy and right stent placement by Dr. Martinez.Renal ultrasound (07/20) showed no free pelvic fluid or hydronephrosis, pt will be followed up as an outpatient for possible stent retrieval in the clinic. #Acute hypoxic respiratory failure, present on admission. acute bronchitis due to hMPV infection vs possible HFpEF. Pt had prolonged cough and wheezing, which delayed her discharged significantly. Given the fact that pt didn use inhalers prn at home, no dx of reactive airway dz in the past. It was felt to be acute bronchitis related to hMPV infection. Flu swab neg. serial CXR didn't show obvious infiltrates suggestive of pneumonia. therefore additional antibiotics deferred. Pt was started on prednisone initially 30mg, increased to 60mg, also given frequent duonebs tx, also later started on QVAR. Pt underwent also trial of diuretics with lasix 20 or 40mg iv for possible HFpEF although symptoms didn' t significantly change. Since symptoms were resolving with treatment for reactive airway disease, pt deemed safe for discharge, pt maintained SpO2>95% on RA, was ambulating without any respiratory distress upon d/c. It was advised that pt should get PFT and possible pulmonary evaluation if symptoms continues. 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, pt was given valtrex for 5D per ID Chronic, stable, resolved #GEOVANNI secondary to obstructive uropathy from nephrolithiasis, resolved #Hypothyroidism- Continued home Levothyroxine #GERD- continued home PPI 40 qd Exam Vital Signs (Last) Date Time Temp Pulse Resp B/P Pulse Ox O2 Delivery O2 Flow Rate FiO2 08/01/16 09:53 36.9 83 22 96/59 99 Room Air 07/29/16 05:14 3.00 Exam NAD, comfortably laying down on the bed no JVD, MMM, no LAD RRR, nl s1, s2 no mrg CTAB, no w,c S,ND,NT,normoactive BS+ warm, no edema, pulses 2/2 Test 07/20/16 00:59 07/20/16 01:25 07/20/16 07:20 07/20/16 16:10 Urine Color Bloody (YELLOW) Urine Appearance Cloudy (CLEAR,HAZY) Urine pH 6.0 (5.0-8.0) Urine Specific [place] 1.015 (1.003-1.035) Urine Protein 100mg/dL (NEG,TRACE) Urine Glucose (UA) Negativemg/dL (NEGATIVE) Urine Ketones Negativemg/dL (NEGATIVE) Urine Occult Blood Large (NEGATIVE) Urine Nitrite Negative (NEGATIVE) Urine Bilirubin Negative (NEGATIVE) Urine Urobilinogen Normalmg/dL (NORMAL) Urine Leukocyte Esterase Moderate (NEGATIVE) Urine RBC >50/hpf (0-2) Urine WBC 6-10/hpf (0-5) Urine Epithelial Cells Many/hpf (NONE-MOD) Urine Crystals None seen (NONE SEEN) Urine Bacteria Many/hpf (NONE-FEW) Urine Hyaline Casts None/lpf (NONE) Urine Granular Casts None seen (NONE SEEN) Urine Waxy Casts None seen (NONE SEEN) Urine Red Blood Cell Casts None seen (NONE SEEN) Urine White Blood Cell Casts None seen (NONE SEEN) Urine Mucus None seen (None Seen) Urine Trichomonas None seen (NONE SEEN) Urine Yeast None (NONE SEEN) Urinalysis Comment None Urine Culture Reflexed Indicated Prothrombin Time 12.9sec (8.1-12.5) Prothromb Time International Ratio 1.20ratio Hemoglobin A1c 6.0% (4.8-5.6) Lipase 27U/L (13-60) Activated Partial Thromboplast Time 35.9sec (22.8-33.0) Troponin T < 0.010ug/L (0.0-0.011) Test 07/21/16 11:05 07/24/16 03:40 07/26/16 06:03 07/27/16 05:00 Hepatitis C Antibody <0.1s/co ratio (0.0-0.9) TB Test (QFT) Gold In Tube Indeterminate (Negative) TB Test (QFT) Incubation Comment (.) TB Test (QFT) Mitogen 0.04IU/mL (.) TB Test (QFT) Antigen 0.07IU/mL (.) TB Test (QFT) Antigen Minus Nil <0.00IU/mL (.) TB Test (QFT) TB - Nil 0.29IU/mL (.) TB Test (QFT) Positive Criteria Comment (.) TB Test (QFT) Interpretation Comment (.) Lactic Acid Level 1.7mmol/L (0.4-2.0) Metamyelocytes % 1% (0-0) Erythrocyte Sedimentation Rate 19mm/hr (0-40) C-Reactive Protein 1.5mg/dL (0.0-0.5) Test 07/29/16 04:29 07/30/16 15:08 07/31/16 08:48 08/01/16 04:55 Band Neutrophils % 4% (1-5) Hold [place] Top Tube Received (Received) Procalcitonin 0.20ng/mL (See Comment) White Blood Count 16.4th/mm3 (3.8-10.1) Red Blood Count 4.14mil/mm3 (3.90-5.20) Hemoglobin 12.5g/dL (12.0-15.6) Hematocrit 37.1% (35.0-46.0) Mean Corpuscular Volume 89.6fL (81-100) Mean Corpuscular Hemoglobin 30.2pg (27.0-35.0) Mean Corpuscular Hemoglobin Concent 33.7% (32.0-37.0) Red Cell Distribution Width 15.3% (12.3-15.4) Platelet Count 477bil/L (150-400) Neutrophils (%) (Auto) 61.1% (40-74) Lymphocytes (%) (Auto) 22.3% (14-46) Monocytes (%) (Auto) 12.0% (4-12) Eosinophils (%) (Auto) 0.4% (0-5) Basophils (%) (Auto) 0.4% (0-3) Sodium Level 135mEq/L (134-144) Potassium Level 4.3mEq/L (3.5-5.2) Chloride Level 97mEq/L (97-108) Carbon Dioxide Level 25mmol/L (18-29) Blood Urea Nitrogen 23mg/dL (8-27) Creatinine 0.60mg/dL (0.57-1.00) Estimat Glomerular Filtration Rate 142mL/min (>59) Glucose Level 101mg/dL (60-99) Calcium Level 10.0mg/dL (8.5-10.1) Phosphorus Level 3.8mg/dL (2.5-4.9) Magnesium Level 2.1mg/dL (1.6-2.6) Total Bilirubin 0.3mg/dL (0.0-1.2) Aspartate Amino Transf (AST/SGOT) 39U/L (0-50) Alanine Aminotransferase (ALT/SGPT) 74U/L (0-32) Alkaline Phosphatase 181U/L (25-165) Total Protein 7.0g/dL (6.4-8.4) Albumin 3.5g/dL (3.4-5.0) Microbiology Results Blood cultures positive for E. coli. Respiratory viral panel positive for metapneumovirus. Influenza negative. Discharge Medications Discharge Medications Ciprofloxacin (Cipro) 500 Mg Tablet 500 MG PO BID Prescribed by: KIRAN RODRIGUEZ MD Dorzolamide HCl/Timolol Maleat (Dorzolamide-Timolol Eye Drops) 10 Ml Drops 2 GTT LEFT_EYE BID (Reported) Esomeprazole Magnesium (Nexium) 40 Mg Capsule.dr 40 MG PO DAILY (Reported) Fluticasone Propionate (Flovent Diskus) 100 Mcg Disk.w.dev 1 PUFF INHALATION BID Prescribed by: KIRAN RODRIGUEZ MD Levothyroxine (Synthroid) 88 Mcg Tablet 88 MCG PO DAILY (Reported) Prednisone (Deltasone) 20 Mg Tablet 60 MG PO DAILY TAKE INSTRUCTED BELOW Please take prednisone 60mg daily for 3more days take 30mg for 2days take 10mg for 2days and stop Prescribed by: KIRAN RODRIGUEZ MD As needed ([Guaifenesin/D-Methorphan Hb]) 10 ML SYRUP 10 ML PO Q6H PRN PRN For Cough Prescribed by: KIRAN RODRIGUEZ MD ([Acetaminophen]) 325 MG TABLET 650 MG PO Q6H PRN PRN For Mild Pain or Fever Prescribed by: KIRAN RODRIGUEZ MD Albuterol HFA (Proair HFA) 8.5 Gm Hfa.aer.ad 1 PUFF INHALATION Q4H PRN PRN For Shortness of Breath (Reported) Omeprazole (Omeprazole) 20 Mg Capsule.dr 20 MG PO DAILY PRN PRN For Dyspepsia or Heartburn (Reported) Additional med instructions Please take prednisone 60mg daily for 3more days take 30mg for 2days take 10mg for 2days and stop Please use combivent inhaler every 2 to 4hours as needed for difficulty of breathing Please continue Qvar inhaler, 2puffs, twice a day Please continue Ciprofloxacin for 2more days Followup Plan Disposition: home Follow-up plan Please follow with primary doctor in 2 weeks Discharge Diet: No restrictions Discharge Activity: No restrictions Patient Instructions You were hospitalized with abdominal pain, nausea, vomiting, you were treated for infected kidney, kidney stones, kidney injuries, bronchitis. Please follow up with Urologist given stent placed, information was provided Please follow up medicine instruction as above Instruction to PCP Please note that hospitalization was prolonged because of persistent cough and wheezing, which seems to improve with treatment for asthma. Please refer patient to PFT once this acute episode is over, pt was given tx of asthma upon d/c Follow-up Provider: Julio Hutchinson MD Follow-up with PCP in: 2 weeks Time spent 65min Kiran Rodriguez MD Aug 04, 2016 13:30
== END 2016-08-01 13:56 | disposition home or self-care (01) | DRG 871 ==
LOC: SED 00:26 → CCU 05:26 → PCC 07-21 18:30 → MPC 07-25 22:19
PROVIDERS: ADMIT Specialist; ATTEND Specialist
PROC: 05HM33Z Insertion of Infusion Device into Right Internal Jugular Vein, Percutaneous Approach (ICD-10-PCS; 2016-07-20)
PROC: 0T9680Z Drainage of Right Ureter with Drainage Device, Via Natural or Artificial Opening Endoscopic (ICD-10-PCS; principal; 2016-07-20 08:30)
DX: A41.51 Sepsis due to Escherichia coli [E. coli] (principal); R65.21 Severe sepsis with septic shock; J18.9 Pneumonia, unspecified organism; J96.01 Acute respiratory failure with hypoxia; N39.0 Urinary tract infection, site not specified; N13.6 Pyonephrosis; E87.2 Acidosis; N17.9 Acute kidney failure, unspecified; N20.1 Calculus of ureter; B97.81 Human metapneumovirus as the cause of diseases classified elsewhere; E03.9 Hypothyroidism, unspecified; B00.9 Herpesviral infection, unspecified; K21.9 Gastro-esophageal reflux disease without esophagitis

== ENCOUNTER 2016-08-17 10:19 | Day surgery (SDC) | payer MEDICARE, OTHER ==
[2016-08-17] VITALS (11 sets, daily range): BP systolic 94–116; BP diastolic 57–74; PULSE 61–81; RESP 10–21; O2SAT 96–100
[~2016-08-17] VITALS: Ht 157.5 cm; Wt 79.4 kg
[~2016-08-17 10:19] MED LIST changes: +Acetaminophen PO; +CeFAZolin 2 Gm/50 mL D5W IV Premix IV ONE; +FLUT100D2 INHALATION; +Guaifenesin/D-Methorphan Hb PO; +Lactated Ringer's 1,000 ML IV SCH; +PRED-508 PO
[2016-08-17] MEDS ORDERED: fentaNYL-PF 50 mCg/mL 2 mL Inj ONE (10:20)
[2016-08-17] MEDS ORDERED: Neostigmine 1 mg/mL 5 mL Inj ONE (10:20)
[2016-08-17] MEDS ORDERED: Glycopyrrolate 0.2 mg/mL 5 mL Inj ONE (10:20)
[2016-08-17] MEDS ORDERED: Ondansetron 2 mg/mL 2 mL Inj ONE (10:20)
[2016-08-17] MEDS ORDERED: Phenylephrine/NS 100 mCg/mL 10 mL Syringe IVPUSH ONE (10:20)
[2016-08-17] MEDS ORDERED: Propofol 10,000 mCg/mL 20 mL Inj ONE (10:20)
[2016-08-17] MEDS ORDERED: MetoCLOpramide 5 mg/mL 2 mL Inj ONE (10:20)
[2016-08-17] MEDS ORDERED: Rocuronium 10 mg/mL 5 mL Inj ONE (10:20)
[2016-08-17] MEDS ORDERED: Dexamethasone 4 mg/mL Inj ONE (10:20)
[2016-08-17] MEDS ORDERED: Lactated Ringer's 1,000 ML IV ONE (10:51)
[2016-08-17] MEDS ORDERED: CeFAZolin 2 Gm/50 mL D5W Duplex Bag IV ONE (10:59)
[2016-08-17] MEDS ORDERED: Famotidine 20 mg/50 mL NS Premix IV ONE (11:27)
[2016-08-17] MEDS ORDERED: Lactated Ringer's 500 ML IV PRN (11:46)
[2016-08-17] MEDS ORDERED: Lactated Ringer's 1,000 ML IV SCH (11:46)
--- NOTE | 2016-08-17 11:46 | PCM.HPANE ---
Patient Data Surgeon Admitting Provider: Attending Provider:Martine Martinez MD Primary Care Physician:Julio Hutchinson MD Other Provider:Trell Arguello Anesthesia Reason for Visit Right Kidney Stone Ht/WT & BMI Height (Feet): 5 Height (Inches): 2 Weight (Kilograms): 79.37 Body Mass Index 32.00 Allergies Coded Allergies: No Known Allergies (Verified , 06/05/15) Past Anesthesia History Anesthesia History: Positive for:: Anesthesia Reactions (PT WAS HOSPITALIZED X 1 WK, LUNG COLLAPSE), Denies:: Abnormal Airway, Difficult Intubation, Fam Anesthesia Reaction, Fam Malignant Hypertherm, Malignant Hyperthermia Diabetes History Hx Diabetes?: No MRSA MRSA: No Medications Active Scripts [Acetaminophen] (Tylenol)325 MG TABLET No Conflict [id number] Mg PO Q6H PRN For Mild Pain or Fever #30 Prov:Kiran Longoria MD 08/01/16 Fluticasone Propionate (Flovent Diskus)100 Mcg Disk.w.dev1 Puff INHALATION BID # 2 Prov:Kiran Longoria MD 08/01/16 Reported Medications Albuterol HFA (Proair HFA)8.5 Gm Hfa.aer.ad1 Puff INHALATION Q4H PRN For Shortness of Breath #1 INHALER 06/05/15 Dorzolamide HCl/Timolol Maleat (Dorzolamide-Timolol Eye Drops)10 Ml Drops2 Gtt LEFT_EYE BID #1 BOTTLE 12/22/14 Esomeprazole Magnesium (Nexium)40 Mg Capsule.dr40 Mg PO DAILY 30 Days Ref 0 12/22/14 Levothyroxine (Synthroid)88 Mcg Jzrruq90 Mcg PO DAILY 30 Days Ref 0 12/22/14 Discontinued Reported Medications Omeprazole 20 Mg Capsule.dr20 Mg PO DAILY PRN For Dyspepsia or Heartburn Ref 0 06/05/15 Discontinued Scripts Prednisone (Deltasone)20 Mg Mnbtdc02 Mg PO DAILY #15 TABLET TAKE INSTRUCTED BELOW Please take prednisone 60mg daily for 3more days take 30mg for 2days take 10mg for 2days and stop Prov:Kiran Longoria MD 08/01/16 [Guaifenesin/D-Methorphan Hb] (Robitussin DM)10 ML SYRUP No Conflict Check10 Ml PO Q6H PRN For Cough 7 Days Prov:Kiran Longoria MD 07/29/16 Ciprofloxacin (Cipro)500 Mg [id number] Mg PO BID #5 TABLET Ref 0 Prov:Kiran Longoria MD 07/29/16 History History of ENT Problems?: Yes HEENT History: Positive for:: Dysphagia (OCCASIONAL ) Denies:: Abnormal Airway Cataracts Difficult Intubation Sinus Problem Hx of Heart Problems?: Yes Cardiovascular History: Positive for:: Edema (occasional) Irregular Heartbeat (C/OF PALPITATIONS) Denies:: AICD Atrial Fibrillation Cardiac Surgery Chest Pain Congestive Heart Failure Heart Murmur Hypertension Pacemaker Thrombophlebitis Valvular Heart Disease Hx of Respiratory Problem?: Yes Respiratory History: Positive for:: Asthma (VERY RARE FLARE UPS ) Dyspnea (this admission 07/19/16) Use of C-PAP Machine (WOOD+ REFUSES CPAP SLEEP STUDY 11/2008) Denies:: COPD Chest Surgery Cough Emphysema Hemoptysis Pneumonia Tuberculosis Hx Neurologic Problems?: Yes Neurological History: Denies:: Alzheimer's Disease CVA Dementia Dizziness Headaches Parkinson's Disease Seizures Hx of GI Problems?: Yes Gastrointestinal History: Positive for:: Diverticulitis Gastroesphageal Reflux Heartburn Hiatal Hernia Denies:: Cirrhosis Gastrointestinal Bleeding Hepatitis Rectal Bleeding Hx of Problems?: Yes Genitourinary History: Positive for:: Kidney Stones (RT URETERAL STONE= CURRENT PROBLEM S/P CYSTO/RT STENT PLACEMENT) Urinary Tract Infection Denies:: HX of Hemodialysis HX of Peritoneal Dialysis: No Female Hx: Denies:: Currently Endometriosis Pelvic Inflammatory Problems with Breasts? Skin History: Denies:: History Skin Disorders? Pressure Ulcers Hx Musculoskeletal Problems?: Yes Musculoskeletal History: Positive for:: Musculoskeletal Trauma (S/P SHOULDER RPR'S,WRIST RPR) Denies:: Back Injury Joint Replacement Hx of Psycho/Social Problems?: Yes Psycho Social History: Positive for:: Anxiety Hx Depression Denies:: Bipolar Disorder Suicide Attempt Hx Surgeries?: Yes (ROTATOR CUFF REPAIR ) Hx Any Other Health Problems?: Yes Other History: Positive for:: Hospitalization (RT KIDNEY STONE 04/07/13) Thyroid Disease Denies:: Cancer Endocrine Disease History Blood Transfusions: Denies:: Blood Transfuse Reaction Blood Transfusions Hx Diabetes: No Hx Alcohol Use: NoHx Substance Use: No Smoking Status: Never Smoker Have You Smoked inLast 12 mo: No Stop/Bang S-Snoring: Do You Snore Loudly: Yes T-Tired: feel tired, fatigued: No O-Obsered: Observed not breath: Yes P-Blood Pressure: treated: Yes B- Body Mass Index > 35 kg/m2: No A- Age over 50: Yes N- Neck Large Circumference: No G- Gender Male: No WOOD Total Score: 4 Risk Assessment Category Category 1A: Patient has history of documented sleep apnea, and HAS NOT received any narcotic, sedative or anesthesia administration during this stay. Category 1B: Patient has history of documented sleep apnea, and HAS received any narcotic , sedative or anesthesia administration during this stay Category 2: Patient has SUSPECTED Obstructive Sleep Apnea, and HAS received any narcotic , sedative or anesthesia administration during this stay. Category 3: Patient has SUSPECTED Obstructive Sleep Apnea and HAS NOT received narcotic, sedative or anesthesia administration during this stay. Category 4: Outpatient in Procedural Areas with known sleep apnea or who screen positive for High Risk via the STOP/BANG questionnaire. Exam Exam General Appearance: Alert, Oriented X3, Cooperative, No Acute Distress HEENT/AIRWAY: MP 2, Neck Movement (FROM), Mouth Opening (3 FBMO) Lungs: Clear to Auscultation, Normal Air Movement Heart: Exam Unremarkable, Regular Rate/Rhythm, No Murmurs/Rubs/Gallops Plan Impression Patient chart reviewed, patient interviewed and anesthestic plan with risks, benefits, and alternatives discussed, and informed consent obtained. NPO Status: MN ASA Physical Status: ASA2 Mod Systemic Disease Anesthetic Plan: GA Bene/Risks/Altern/Consents: Yes HP Complete Prior to Induction: Yes Misael Cardona MD Aug 17, 2016 09:38
[2016-08-17] MEDS ORDERED: Atropine 0.4 mg/mL Inj IVPUSH PRN (11:50)
[2016-08-17] MEDS ORDERED: Labetalol 5 mg/mL 4 mL Inj IV PRN (11:50)
[2016-08-17] MEDS ORDERED: MetoCLOpramide 5 mg/mL 2 mL Inj IVPUSH PRN (11:50)
[2016-08-17] MEDS ORDERED: fentaNYL-PF 50 mCg/mL 2 mL Inj IVPUSH PRN (11:50)
[2016-08-17] MEDS ORDERED: Ondansetron 2 mg/mL 2 mL Inj IVPUSH PRN (11:50)
[2016-08-17] MEDS ORDERED: EPHEDrine Sulfate 50 mg/mL Inj IVPUSH PRN (11:50)
[2016-08-17] MEDS ORDERED: Phenylephrine 10,000 mCg/mL Inj IVPUSH PRN (11:50)
[2016-08-17] MEDS ORDERED: hydrALAZINE 20 mg/mL Inj IVPUSH PRN (11:50)
[2016-08-17] MEDS ORDERED: Belladonna Alk-Opium 60 mg Rectal Suppository RECTAL ONE (11:59)
--- NOTE | 2016-08-17 13:23 | OP ---
[address] [address] OPERATIVE REPORT PATIENT: CARMEN CARLTON : 1950 MR#: [id number] ADMIT: 08/17/2016 JOB ID: [id number] DATE OF SURGERY: 08/17/2016 SURGEON: Martine Martinez MD PREOPERATIVE DIAGNOSIS(ES): Right ureteral calculus. POSTOPERATIVE DIAGNOSIS(ES): PROCEDURE: Cystoscopy, ureteroscopy, laser lithotripsy, stone basketing, and stent exchange. ANESTHESIA: General anesthetic with Dr. Cardona. DESCRIPTION OF PROCEDURE: Under general anesthetic, the patient was placed in lithotomy position and the genitalia prepped and draped in a sterile manner. A 22-Bahamian cystoscope was introduced through a normal urethra. Using a flexible grasping forceps, the stent protruding from the right ureteral orifice was grasped and removed. A 0.035 Glidewire was then advanced to the level of the right renal pelvis. Over the Glidewire a 14-Bahamian access sheath was advanced up to the level of the ureteropelvic junction. A flexible ureteroscope was then advanced and the stone was well visualized. A 270 micron laser fiber was then used to fragment the stone in multiple pieces. An NGage basket was then used to extract several small fragments. Remaining fragments in the kidney were all less than 1 mm. A 0.035 Glidewire was then advanced back into the ureter. Over this a 6-Bahamian 22 cm stent was passed. When the stent was confirmed to be in good position, the string was cut and removed and the wire withdrawn. A B and O suppository was given for postoperative analgesia. The patient tolerated the procedure well and left the operating room in good condition.
--- NOTE | 2016-08-17 13:48 | PCM.ANEP1 ---
Post Anesthesia Phase 1 PACU Phase 1 Assessment Vital Signs Vital Signs Date Time Temp Pulse Resp B/P Pulse Ox O2 Delivery O2 Flow Rate FiO2 08/17/16 13:17 36 61 16 99/65 99 Room Air 08/17/16 13:10 64 12 96/69 98 Room Air 08/17/16 13:06 65 13 95/62 97 Room Air 08/17/16 13:00 36.5 68 10 97/57 97 Room Air 08/17/16 12:56 70 13 102/64 96 Simple Mask 10 08/17/16 12:50 75 16 94/59 97 Simple Mask 10 08/17/16 12:45 78 20 98/60 100 Simple Mask 10 08/17/16 12:40 81 21 95/60 100 Simple Mask 10 08/17/16 12:35 36.5 80 21 112/71 100 Simple Mask 10 08/17/16 10:52 36 77 16 113/74 97 Room Air Anesthetic Administered: GA Level of Alertness: Awake, talking GIL's with Equal Strength: Yes Pain: No Nausea or Vomiting: No Oxygen Delivery: Simple Mask Lungs: Clear to Auscultation, Normal Air Movement Dermatome Level: Full Sensation Misael Cardona MD Aug 17, 2016 13:48
--- NOTE | 2016-08-17 13:48 | PCM.ANEP2 ---
Post Anesthesia Evaluation ASA/CMS Post Anesthesia VS in Patient's Normal Range?: Yes Resp Stable; Airway Patent?: Yes CV Function & Hydration Stable: Yes Mental Status Recovered?: Yes Pain control Satisfactory?: Yes N/V Control Satisfactory?: Yes Misael Cardona MD Aug 17, 2016 13:48
[2016-08-17] MEDS ORDERED: HYDROcodone-APAP 5-325 mg Tablet PO PRN (14:10)
== END 2016-08-17 23:59 | disposition home or self-care (01) ==
LOC: SAS 10:19
PROVIDERS: ATTEND Urology
DX: N20.1 Calculus of ureter (principal); E78.2 Mixed hyperlipidemia; J45.909 Unspecified asthma, uncomplicated; E03.9 Hypothyroidism, unspecified; K21.9 Gastro-esophageal reflux disease without esophagitis; Z87.440 Personal history of urinary (tract) infections; Z79.51 Long term (current) use of inhaled steroids
CPT/HCPCS: 52356; 76000; C2617; J0690; J1100; J2370; J2405; J2710; J2765; J3490; J7120

== ENCOUNTER 2016-08-25 08:20 | Day surgery (SDC) | payer MEDICARE, OTHER ==
[2016-08-25] VITALS (9 sets, daily range): BP systolic 88–122; BP diastolic 56–88; PULSE 62–78; RESP 16–22; O2SAT 96–100
[~2016-08-25] VITALS: Ht 154.9 cm; Wt 77.9 kg
--- NOTE | 2016-08-25 06:36 | PCM.HPANE ---
Patient Data Surgeon Admitting Provider: Attending Provider:Martine Martinez MD Primary Care Physician:Julio Hutchinson MD Other Provider:Trell Arguello Anesthesia Reason for Visit Right Kidney Stone Ht/WT & BMI Height (Feet): 5 Height (Inches): 2 Weight (Kilograms): 79.37 Body Mass Index 32.00, 32.00 Allergies Coded Allergies: No Known Allergies (Verified , 06/05/15) Past Anesthesia History Anesthesia History: Positive for:: Anesthesia Reactions (PT WAS HOSPITALIZED X 1 WK, LUNG COLLAPSE), Denies:: Abnormal Airway, Difficult Intubation, Fam Anesthesia Reaction, Fam Malignant Hypertherm, Malignant Hyperthermia Diabetes History Hx Diabetes?: No MRSA MRSA: No Medications Hypertension Medication: No Home Meds Incl Beta Liseth: No Active Scripts [Acetaminophen] (Tylenol)325 MG TABLET No Conflict [id number] Mg PO Q6H PRN For Mild Pain or Fever #30 Prov:Kiran Longoria MD 08/01/16 Fluticasone Propionate (Flovent Diskus)100 Mcg Disk.w.dev1 Puff INHALATION BID # 2 Prov:Kiran Longoria MD 08/01/16 Reported Medications Albuterol HFA (Proair HFA)8.5 Gm Hfa.aer.ad1 Puff INHALATION Q4H PRN For Shortness of Breath #1 INHALER 06/05/15 Dorzolamide HCl/Timolol Maleat (Dorzolamide-Timolol Eye Drops)10 Ml Drops2 Gtt LEFT_EYE BID #1 BOTTLE 12/22/14 Esomeprazole Magnesium (Nexium)40 Mg Capsule.dr40 Mg PO DAILY 30 Days Ref 0 12/22/14 Levothyroxine (Synthroid)88 Mcg Ooyoph96 Mcg PO DAILY 30 Days Ref 0 12/22/14 History History of ENT Problems?: Yes HEENT History: Positive for:: Dysphagia (occasional) Denies:: Abnormal Airway Cataracts Difficult Intubation Sinus Problem Hx of Heart Problems?: Yes Cardiovascular History: Positive for:: Edema (occasional) Irregular Heartbeat (C/OF PALPITATIONS) Denies:: AICD Atrial Fibrillation Cardiac Surgery Chest Pain Congestive Heart Failure Heart Murmur Hypertension Pacemaker Thrombophlebitis Valvular Heart Disease Hx of Respiratory Problem?: Yes Respiratory History: Positive for:: Asthma (rare) Dyspnea (occasional) Denies:: COPD Chest Surgery Cough Emphysema Hemoptysis Pneumonia Tuberculosis Use of C-PAP Machine (WOOD+, refuses CPAP) Hx Neurologic Problems?: Yes Neurological History: Denies:: Alzheimer's Disease CVA Dementia Dizziness Headaches Parkinson's Disease Seizures Hx of GI Problems?: Yes Gastrointestinal History: Positive for:: Diverticulitis Gastroesphageal Reflux Heartburn Hiatal Hernia Denies:: Cirrhosis Gastrointestinal Bleeding Hepatitis Rectal Bleeding Hx of Problems?: Yes Genitourinary History: Positive for:: Kidney Stones (right ureteral stone current admission prob, surg here 08/17/16) Urinary Tract Infection Denies:: HX of Hemodialysis HX of Peritoneal Dialysis: No Female Hx: Denies:: Currently Endometriosis Pelvic Inflammatory Problems with Breasts? Skin History: Denies:: History Skin Disorders? Pressure Ulcers Hx Musculoskeletal Problems?: Yes Musculoskeletal History: Positive for:: Musculoskeletal Trauma (S/P SHOULDER RPR'S,WRIST RPR) Denies:: Back Injury Joint Replacement Hx of Psycho/Social Problems?: Yes Psycho Social History: Positive for:: Anxiety Hx Depression Denies:: Bipolar Disorder Suicide Attempt Hx Surgeries?: Yes (ROTATOR CUFF REPAIR , cysto- stent) Hx Any Other Health Problems?: Yes Other History: Positive for:: Hospitalization (RT KIDNEY STONE 04/07/13) Thyroid Disease Denies:: Cancer Endocrine Disease History Blood Transfusions: Denies:: Blood Transfuse Reaction Blood Transfusions Hx Diabetes: No Hx Alcohol Use: NoHx Substance Use: No Smoking Status: Never Smoker Have You Smoked inLast 12 mo: No Stop/Bang S-Snoring: Do You Snore Loudly: Yes T-Tired: feel tired, fatigued: No O-Obsered: Observed not breath: Yes P-Blood Pressure: treated: No B- Body Mass Index > 35 kg/m2: No A- Age over 50: Yes N- Neck Large Circumference: No G- Gender Male: No WOOD Total Score: 3 WOOD Risk Assessment: Low Risk, <3 Yes Risk Assessment Category Category 1A: Patient has history of documented sleep apnea, and HAS NOT received any narcotic, sedative or anesthesia administration during this stay. Category 1B: Patient has history of documented sleep apnea, and HAS received any narcotic , sedative or anesthesia administration during this stay Category 2: Patient has SUSPECTED Obstructive Sleep Apnea, and HAS received any narcotic , sedative or anesthesia administration during this stay. Category 3: Patient has SUSPECTED Obstructive Sleep Apnea and HAS NOT received narcotic, sedative or anesthesia administration during this stay. Category 4: Outpatient in Procedural Areas with known sleep apnea or who screen positive for High Risk via the STOP/BANG questionnaire. Exam Exam General Appearance: Alert, Oriented X3, Cooperative, No Acute Distress HEENT/AIRWAY: MP 2 Lungs: Clear to Auscultation, Normal Air Movement Heart: Exam Unremarkable, Regular Rate/Rhythm, No Murmurs/Rubs/Gallops Plan Impression Patient chart reviewed, patient interviewed and anesthestic plan with risks, benefits, and alternatives discussed, and informed consent obtained. NPO Status: MN ASA Physical Status: ASA2 Mod Systemic Disease Anesthetic Plan: GA Bene/Risks/Altern/Consents: Yes HP Complete Prior to Induction: Yes Marija Hart MD Aug 25, 2016 06:36
[~2016-08-25 08:20] MED LIST changes: -Guaifenesin/D-Methorphan Hb PO; -Lactated Ringer's 1,000 ML IV SCH; -OMEP20CA11 PO; -PRED-508 PO
[2016-08-25] MEDS ORDERED: fentaNYL-PF 50 mCg/mL 2 mL Inj ONE (08:21)
[2016-08-25] MEDS ORDERED: Lactated Ringer's 1,000 ML IV ONE (09:58)
[2016-08-25] MEDS ORDERED: Lactated Ringer's 500 ML IV PRN (10:12)
[2016-08-25] MEDS ORDERED: Lactated Ringer's 1,000 ML IV SCH (10:12)
[2016-08-25] MEDS ORDERED: fentaNYL-PF 50 mCg/mL 2 mL Inj IVPUSH PRN (10:15)
[2016-08-25] MEDS ORDERED: Dexamethasone 4 mg/mL Inj IVPUSH PRN (10:15)
[2016-08-25] MEDS ORDERED: Labetalol 5 mg/mL 4 mL Inj IV PRN (10:15)
[2016-08-25] MEDS ORDERED: MetoCLOpramide 5 mg/mL 2 mL Inj IVPUSH PRN (10:15)
[2016-08-25] MEDS ORDERED: Ondansetron 2 mg/mL 2 mL Inj IVPUSH PRN (10:15)
[2016-08-25] MEDS ORDERED: HYDROmorphone 1 mg/mL Inj IVPUSH PRN (10:15)
[2016-08-25] MEDS ORDERED: Atropine 0.4 mg/mL Inj IVPUSH PRN (10:15)
[2016-08-25] MEDS ORDERED: hydrALAZINE 20 mg/mL Inj IVPUSH PRN (10:15)
[2016-08-25] MEDS ORDERED: EPHEDrine Sulfate 50 mg/mL Inj IVPUSH PRN (10:15)
[2016-08-25] MEDS ORDERED: Phenylephrine 10,000 mCg/mL Inj IVPUSH PRN (10:15)
[2016-08-25] MEDS ORDERED: HYDROcodone-APAP 5-325 mg Tablet PO PRN (10:30)
--- NOTE | 2016-08-25 10:52 | OP ---
[address] [address] OPERATIVE REPORT PATIENT: CARMEN CARLTON : 1950 MR#: [id number] ADMIT: 08/25/2016 JOB ID: [id number] DATE OF SURGERY: 08/25/2016 SURGEON: Martine Martinez MD. PREOPERATIVE DIAGNOSIS(ES): Retained right ureteral stent. POSTOPERATIVE DIAGNOSIS(ES): Retained right ureteral stent. PROCEDURE: 1. Cystoscopy. 2. Ureteroscopy. 3. Stent removal. ANESTHESIA: General anesthetic. ANESTHESIOLOGIST: Marija Hart MD. DESCRIPTION OF PROCEDURE: Under general anesthetic, patient was placed in lithotomy position. Genitalia prepped and draped in a sterile manner. A 7-Lux[place]ish semi-rigid ureteroscope was introduced through a normal urethra. The ureter was still sufficiently dilated to allow entry of the scope. The tip of the stent was seen just 2 cm inside the orifice. Using a Nitinol tipless basket, the stent was grasped and removed intact. The patient tolerated the procedure well and left the operating room in good condition.
--- NOTE | 2016-08-25 11:18 | PCM.ANEP2 ---
Post Anesthesia Evaluation ASA/CMS Post Anesthesia VS in Patient's Normal Range?: Yes Resp Stable; Airway Patent?: Yes CV Function & Hydration Stable: Yes Mental Status Recovered?: Yes Pain control Satisfactory?: Yes N/V Control Satisfactory?: Yes Marija Hart MD Aug 25, 2016 11:18
--- NOTE | 2016-08-25 11:18 | PCM.ANEP1 ---
Post Anesthesia Phase 1 PACU Phase 1 Assessment Vital Signs Vital Signs Date Time Temp Pulse Resp B/P Pulse Ox O2 Delivery O2 Flow Rate FiO2 08/25/16 11:09 66 17 109/64 97 Room Air 08/25/16 11:05 36.1 63 16 105/88 98 Room Air 08/25/16 10:45 36.4 62 17 100/58 100 Simple Mask 7 08/25/16 10:40 65 17 88/56 100 Simple Mask 7 08/25/16 10:35 66 17 96/59 99 Simple Mask 7 08/25/16 10:30 36.0 102/65 08/25/16 09:51 36.4 78 16 110/63 98 Room Air Anesthetic Administered: GA Level of Alertness: Awake, talking GIL's with Equal Strength: Yes Pain: No Nausea or Vomiting: No Airway Device: Oralpharangeal Airway Oxygen Delivery: Simple Mask Lungs: Clear to Auscultation, Normal Air Movement Marija Hart MD Aug 25, 2016 11:18
[2016-08-25] MEDS ORDERED: Ondansetron 2 mg/mL 2 mL Inj ONE (13:00)
[2016-08-25] MEDS ORDERED: Propofol 10,000 mCg/mL 20 mL Inj ONE (13:00)
[2016-08-25] MEDS ORDERED: Dexamethasone 4 mg/mL Inj ONE (13:00)
== END 2016-08-25 23:59 | disposition home or self-care (01) ==
LOC: SAS 08:20
PROVIDERS: ATTEND Urology
DX: N20.0 Calculus of kidney (principal)
CPT/HCPCS: 52310; J0690; J1100; J2250; J2405; J3010; J7120